=== PATIENT | female | born 2000 | race Caucasian/White ===

== ENCOUNTER 2020-03-01 10:15 | Outpatient (REF) | payer OTHER, SELFPAY ==
[2020-03-01 11:10] LABS: MANUAL DIFF FLAG NO
[2020-03-01 11:15] LABS: Basophils Percent Auto 0.5 % (0-2); Eosinophils Absolute Auto 0.1 X10*3/uL (0.0-0.4); Hemoglobin 12.5 g/dl (12.0-16.0); Imm Gran Abs Auto 0.03 X10*3/uL (0.00-0.03); Imm Gran Pct Auto 0.5 % (0.0-0.4); Lymphocytes Absolute Auto 2.3 X10*3/uL (1.2-4.9); Mean Corpuscular HGB Conc 32.9 g/dl (31.0-35.0); Mean Corpuscular Hemoglobin 28.9 pg (27.0-33.0); Mean Platelet Volume 9.9 fL (9.4-12.3); Monocytes Absolute Auto 0.5 X10*3/uL (0.1-1.2); Neutrophils Absolute Auto 3.3 X10*3/uL (2.0-8.3); Platelet Count 325 X10*3/uL (160-400); Red Blood Count 4.32 X10*6/uL (4.20-5.50); Red Cell Distribution Width 11.6 % (11.0-16.0); White Blood Count 6.1 X10*3/uL (4.8-10.8)
[2020-03-01 12:00] LABS: Anion Gap 14 (12-20); Blood Urea Nitrogen 7 mg/dL (9-16); Calcium 9.2 mg/dL (8.4-10.2); Carbon Dioxide 25 mmol/L (22-29); Chloride 103 mmol/L (96-108); Estimated Glomerular Filt Rate > 60; Glucose Random 91 mg/dL (60-115); Potassium 4.5 mmol/l (3.3-5.1); Sodium 137 mmol/L (135-145)
[2020-03-01 12:25] LABS: TSH reflex Free T4 1.16 mIU/mL (0.32-4.0)
[2020-03-02 19:01] LABS: LDL Cholesterol Direct 150 mg/dL (<100)
== END 2020-03-01 10:16 | disposition home or self-care (01) ==
LOC: HO.HMGCLDS 10:15
PROVIDERS: PCP Internal Medicine; Visit Provider Internal Medicine
DX: Z30.41 Encounter for surveillance of contraceptive pills (principal); E66.9 Obesity, unspecified; L70.8 Other acne
CPT/HCPCS: 36415; 80048; 83721; 84443; 85025

== ENCOUNTER 2020-06-08 10:41 | Outpatient (REF) | payer OTHER, SELFPAY ==
[2020-06-09 10:17] LABS: BV Int Neg Control Negative (Negative); BV Int Pos Control Positive (Positive)
[2020-06-09 20:51] LABS: C. trachomatis RNA TMA NOT DETECTED (NOT DETECTED); N. gonorrhoeae RNA TMA NOT DETECTED (NOT DETECTED)
== END 2020-06-08 10:42 | disposition home or self-care (01) ==
LOC: HO.LAB 10:41
PROVIDERS: PCP Internal Medicine; Visit Provider Advanced Practice Midwife
DX: R30.0 Dysuria (principal); R10.2 Pelvic and perineal pain; Z11.3 Encounter for screening for infections with a predominantly sexual mode of transmission
CPT/HCPCS: 36415; 81003; 87480; 87491; 87510; 87591; 87660; 99212

== ENCOUNTER → 2020-06-28 14:24 | Outpatient (BNVA) | payer OTHER, SELFPAY | PROVIDERS: PCP Internal Medicine; Visit Provider Advanced Practice Midwife ==

== ENCOUNTER 2021-02-16 09:19 | Outpatient (REF) | payer OTHER, SELFPAY ==
[2021-02-16 14:34] LABS: CT PCR NOT DETECTED (Not Detect.); NG PCR NOT DETECTED (Not Detect.)
[2021-02-17 11:09] LABS: BV Int Neg Control Negative (Negative); BV Int Pos Control Positive (Positive)
== END 2021-02-16 09:20 | disposition home or self-care (01) ==
LOC: HO.LAB 09:19
PROVIDERS: Obstetrics & Gynecology; Visit Provider Advanced Practice Midwife
DX: Z01.411 Encounter for gynecological examination (general) (routine) with abnormal findings (principal); Z11.3 Encounter for screening for infections with a predominantly sexual mode of transmission; R10.2 Pelvic and perineal pain
CPT/HCPCS: 87480; 87491; 87510; 87591; 87660; 88142

== ENCOUNTER 2021-03-09 11:52 | Outpatient (REF) | payer OTHER, SELFPAY ==
--- NOTE | ~2021-03-09 | US_ITS ---
EXAMINATION: US PELVIS CLINICAL INFORMATION: Pelvic pain COMPARISON: None TECHNIQUE: Ultrasound of the pelvis is performed using both transabdominal and transvaginal transducers along with Doppler. Transvaginal imaging is performed due to inadequate visualization transabdominally. FINDINGS: The uterus is anteverted and measures 7.1 x 2.2 x 3.4 cm in dimension. No focal uterine lesion is seen. Endometrial thickness is normal measuring 0.3 cm. The cervix is normal. The ovaries are normal. The right ovary measures 2.5 x 0.9 x 1.4 cm. The left ovary measures 1.7 x 1 x 1.3 cm. There is no fluid in the pelvis. US/US pelvic and transvaginal IMPRESSION: Normal pelvic ultrasound.
== END 2021-03-09 11:53 | disposition home or self-care (01) ==
LOC: HO.US 11:52
PROVIDERS: Visit Provider Obstetrics & Gynecology
DX: R10.2 Pelvic and perineal pain (principal)
CPT/HCPCS: 76830; 76856

== ENCOUNTER 2021-03-16 09:50 | Outpatient (REF) | payer OTHER, SELFPAY ==
[2021-03-16 13:11] LABS: CT PCR NOT DETECTED (Not Detect.); NG PCR NOT DETECTED (Not Detect.)
[2021-03-17 11:36] LABS: BV Int Neg Control Negative (Negative); BV Int Pos Control Positive (Positive)
== END 2021-03-16 09:51 | disposition home or self-care (01) ==
LOC: HO.LAB 09:50
PROVIDERS: Visit Provider Obstetrics & Gynecology
DX: Z11.3 Encounter for screening for infections with a predominantly sexual mode of transmission (principal); R10.2 Pelvic and perineal pain; N76.0 Acute vaginitis
CPT/HCPCS: 87480; 87491; 87510; 87591; 87660; 99212

== ENCOUNTER 2021-04-12 16:56 | Outpatient (REF) | payer OTHER, SELFPAY ==
[2021-04-12 17:57] LABS: Influenza A PCR NEGATIVE (Negative); Influenza B PCR NEGATIVE (Negative); Resp Syncy Virus RNA Qual PCR NEGATIVE (Negative); SARS COV2 PCR INHOUSE POSITIVE (Negative)
== END 2021-04-12 16:57 | disposition home or self-care (01) ==
LOC: HO.LNP 16:56
PROVIDERS: Visit Provider Internal Medicine
DX: Z20.822 Contact with and (suspected) exposure to COVID-19 (principal); J02.9 Acute pharyngitis, unspecified; R68.89 Other general symptoms and signs
CPT/HCPCS: 0241U

== ENCOUNTER 2021-06-13 15:02 | Outpatient (REF) | payer OTHER, SELFPAY ==
[2021-06-13 17:01] LABS: Alanine Aminotransferase 25 U/L (0-31); Albumin Level 4.1 g/dL (3.5-5.0); Alkaline Phosphatase 84 U/L (39-117); Anion Gap 14 (12-20); Aspartate Amino Transferase 21 U/L (5-31); Bilirubin Total 0.2 mg/dL (0.0-1.0); Blood Urea Nitrogen 15 mg/dL (9-16); Calcium 9.4 mg/dL (8.4-10.2); Carbon Dioxide 24 mmol/L (22-29); Chloride 104 mmol/L (96-108); Estimated Glomerular Filt Rate > 60; Glucose Random 82 mg/dL (60-115); Potassium 4.3 mmol/L (3.3-5.1); Sodium 138 mmol/L (135-145); Total Protein 7.8 g/dL (6.5-8.0)
== END 2021-06-13 15:03 | disposition home or self-care (01) ==
LOC: HO.HMGCLDS 15:02
PROVIDERS: Visit Provider Internal Medicine
DX: L70.8 Other acne (principal)
CPT/HCPCS: 36415; 80053

== ENCOUNTER → 2021-07-06 13:31 | Outpatient (BNVA) | payer OTHER, SELFPAY | PROVIDERS: Visit Provider Physician Assistant | DX: S93.402A Sprain of unspecified ligament of left ankle, initial encounter (principal); X58.XXXA Exposure to other specified factors, initial encounter | CPT/HCPCS: 29515; 73610; 99203 ==

== ENCOUNTER → 2021-07-13 15:07 | Outpatient (BNVA) | payer OTHER, SELFPAY | PROVIDERS: Visit Provider Physician Assistant | DX: S93.402A Sprain of unspecified ligament of left ankle, initial encounter (principal); X58.XXXA Exposure to other specified factors, initial encounter | CPT/HCPCS: 99213 ==

== ENCOUNTER 2021-08-30 17:13 | Outpatient (REF) | payer OTHER, SELFPAY ==
[2021-08-30 18:04] LABS: Influenza A PCR NEGATIVE (Negative); Influenza B PCR NEGATIVE (Negative); Resp Syncy Virus RNA Qual PCR NEGATIVE (Negative); SARS COV2 PCR INHOUSE NEGATIVE (Negative)
== END 2021-08-30 17:14 | disposition home or self-care (01) ==
LOC: HO.LNP 17:13
PROVIDERS: Visit Provider Emergency Medicine
DX: Z20.822 Contact with and (suspected) exposure to COVID-19 (principal); R68.89 Other general symptoms and signs
CPT/HCPCS: 0241U

== ENCOUNTER 2021-12-21 12:34 | Outpatient (REF) | payer OTHER, SELFPAY ==
[2021-12-21 13:02] LABS: Binax Internal Control QC Valid; Binax Now Covid-19 Ag Negative (Negative)
== END 2021-12-21 12:35 | disposition home or self-care (01) ==
LOC: HO.HMGCLDS 12:34
PROVIDERS: PCP Internal Medicine
DX: Z20.822 Contact with and (suspected) exposure to COVID-19 (principal); R09.81 Nasal congestion
CPT/HCPCS: 87811; C9803

== ENCOUNTER 2022-03-21 15:45 | Outpatient (REF) | payer OTHER, SELFPAY ==
[2022-03-22 02:14] LABS: CT PCR NOT DETECTED (Not Detect.); NG PCR NOT DETECTED (Not Detect.)
== END 2022-03-21 15:46 | disposition home or self-care (01) ==
LOC: HO.LNP 15:45
PROVIDERS: Visit Provider Obstetrics & Gynecology
DX: Z11.3 Encounter for screening for infections with a predominantly sexual mode of transmission (principal)
CPT/HCPCS: 87491; 87591

== ENCOUNTER 2022-03-28 11:44 | Outpatient (REF) | payer OTHER, SELFPAY ==
[2022-03-28 13:36] LABS: Influenza A PCR NEGATIVE (Negative); Influenza B PCR NEGATIVE (Negative); Resp Syncy Virus RNA Qual PCR NEGATIVE (Negative); SARS COV2 PCR INHOUSE NEGATIVE (Negative)
== END 2022-03-28 11:45 | disposition home or self-care (01) ==
LOC: HO.LNP 11:44
PROVIDERS: Visit Provider Internal Medicine
DX: Z20.822 Contact with and (suspected) exposure to COVID-19 (principal); R43.9 Unspecified disturbances of smell and taste
CPT/HCPCS: 0241U

== ENCOUNTER 2022-08-02 08:41 | Outpatient (REF) | payer OTHER, SELFPAY ==
[2022-08-02 12:36] LABS: Alanine Aminotransferase 17 U/L (0-31); Alkaline Phosphatase 79 U/L (39-117); Anion Gap 18 (12-20); Aspartate Amino Transferase 22 U/L (5-31); Bilirubin Total 0.2 mg/dL (0.0-1.0); Blood Urea Nitrogen 10 mg/dL (9-16); Calcium 9.8 mg/dL (8.4-10.2); Carbon Dioxide 21 mmol/L (22-29); Chloride 107 mmol/L (96-108); Cholesterol 222 mg/dL; Estimated Glomerular Filt Rate > 60; Glucose Fasting 82 mg/dL (60-99); HDL Cholesterol 54 mg/dL; LDL Cholesterol Calculated 138 mg/dl; Potassium 4.9 mmol/L (3.3-5.1); Sodium 141 mmol/L (135-145); Total Protein 7.7 g/dL (6.5-8.0); Triglycerides 151 mg/dL
== END 2022-08-02 08:42 | disposition home or self-care (01) ==
LOC: HO.HMGCLDS 08:41
PROVIDERS: PCP Internal Medicine; Visit Provider Internal Medicine
DX: Z00.01 Encounter for general adult medical examination with abnormal findings (principal); L70.8 Other acne; Z91.09 Other allergy status, other than to drugs and biological substances
CPT/HCPCS: 36415; 80053; 80061

== ENCOUNTER 2022-10-31 12:46 | Outpatient (AMB) | payer OTHER, SELFPAY ==
--- NOTE | 2022-10-31 12:50 | MHC.OFFWIV ---
Intake Vital Signs 10/31/22 12:52 BP 112/68 Blood Pressure Location Rt brachial Position Sitting Pulse 64 Pulse Source Pulse Oximeter Temp 97.7 F Temp Source Oral Pulse Oximetry (%) 98 Intake Visit Reasons: EP ear pain (lobby) Intake Note: Patient here for left ear pain, pt believes it is a start of ear infection but states it also might be sinus infection. Patient Tobacco Use Status: Never used Tobacco Allergies No Known Allergies Allergy (Verified 10/31/22 12:52) Do you need a note to return to daycare/school/sports/work: No HPI EP ear pain (lobby) HPI Details 21-year-old female presents to the office for a sick visit. Patient is reporting pain in the left ear. Symptoms are more in the external ear. Episodes of sharp pain. [facility] Medical History Acne cosmetica Encounter for control pills maintenance Head congestion Surgical History No pertinent past surgical history Family History Father Unknown family medical history Mother Medical history non-contributory Unknown family medical history Maternal Grandfather No problems noted. Maternal Grandmother Unknown family medical history Paternal Grandfather Medical history non-contributory Paternal Grandmother Medical history non-contributory Sister No problems noted. Social History Housing: House Alcohol intake: never Patient Tobacco Use Status: Never used Tobacco e-Cigarette/Vaping Use: Never Used service: No Current occupational status: employed Cognitive needs: No Hearing needs: No Vision needs: Yes Female Reproductive History Menstrual Age of Menarche: 10 Physical Exam Vital Signs: Last Vital Signs Temp 97.7 F 10/31/22 12:52 Pulse 64 10/31/22 12:52 BP 112/68 10/31/22 12:52 Pulse Ox 98 10/31/22 12:52 Const General: cooperative and healthy appearing Nutritional Appearance: well nourished Limitations: no limitations HEENT Other: Left ear: tenderness in the tragus part of external ear. No visible bruising. Head: Yes normal to inspection Eyes General: appearance normal, both eyes and all related structures Neck Neck: Yes normal visual inspection Assessment & Plan Assessment & Plan (1) Otalgia: Code(s): H92.09 - Otalgia, unspecified ear Plan: No evidence of infection. No antibiotics called in. Medications: New meloxicam 15 mg PO DAILY 14 tabs 0RF Coding Level of Care Code Est Pt Level 3 (46522) Diagnoses Otalgia H92.09
[2022-10-31 12:52] VITALS: BP 112/68; PULSE 64; TEMP 36.5; O2SAT 98
== END 2022-10-31 13:12 | disposition home or self-care (01) ==
PROVIDERS: PCP Internal Medicine; Visit Provider Internal Medicine
DX: H92.09 Otalgia, unspecified ear (principal)
CPT/HCPCS: 99213

== ENCOUNTER 2023-02-22 11:10 | Outpatient (AMB) | payer OTHER, SELFPAY ==
[2023-02-22 11:16] VITALS: BP 124/88; PULSE 93; O2SAT 96; BMI 31.0
--- NOTE | 2023-02-22 11:16 | AM.OFFWIN_ITS ---
Intake Vital Signs 02/22/23 11:16 Height 5 ft 4 in Weight 180 lb 6 oz BMI 31.0 BP 124/88 Blood Pressure Location Rt brachial Position Sitting Pulse 93 Pulse Source Pulse Oximeter Pulse Oximetry (%) 96 Oxygen Delivery Method Room Air Intake Visit Reasons: EST/abdominal pain [phone] Patient Tobacco Use Status: Never used Tobacco Allergies No Known Allergies Allergy (Verified 02/22/23 11:16) Medication List - Last Reconciled 02/22/23 by Susana May MD fluticasone propionate 50 mcg/actuation (Flonase Allergy Relief) 1 spray intranasal DAILY 3 months norgestimate-ethinyl estradiol 0.25-35 mg-mcg 1 tab PO DAILY spironolactone 100 mg PO BID 90 days triamcinolone acetonide 0.1% 1 appl topical DAILY 30 days Do you need a note to return to daycare/school/sports/work: No HPI EST/abdominal pain [phone] HPI Details Patient is 22-year-old female Came in today to be evaluated for lower abdominal discomfort, it started yesterday but got worse this morning Patient is also feeling nauseous There is no fever chills However she is having dysuria. On examination patient is tender suprapubically Urine shows signs of infection We have sent culture I am treating her with Levaquin 500 mg once a day for 3 days And Zofran sent for nausea as needed for 2 days. [facility]MERLY [facility], [facility] Medical History Head congestion Encounter for control pills maintenance Acne cosmetica Surgical History No pertinent past surgical history Family History Father Unknown family medical history Mother Medical history non-contributory Unknown family medical history Maternal Grandfather No problems noted. Maternal Grandmother Unknown family medical history Paternal Grandfather Medical history non-contributory Paternal Grandmother Medical history non-contributory Sister No problems noted. Social History Housing: House Alcohol intake: never Patient Tobacco Use Status: Never used Tobacco e-Cigarette/Vaping Use: Never Used service: No Current occupational status: employed Cognitive needs: No Hearing needs: No Vision needs: Yes Female Reproductive History Menstrual Age of Menarche: 10 Physical Exam Vital Signs: Last Vital Signs Pulse 93 02/22/23 11:16 BP 124/88 02/22/23 11:16 Pulse Ox 96 02/22/23 11:16 Oxygen Delivery Method Room Air 02/22/23 11:16 BMI result Body Mass Index 31.0 Const General: no acute distress Orientation/consciousness: patient oriented x3 Eyes General: appearance normal, both eyes and all related structures Resp Effort & Inspection: normal respiratory effort and able to speak in complete sentences Auscultation: clear to auscultation bilaterally Cardio Other: S1 S2 GI Other: Suprapubic discomfort with pressure bowel sound positive Neuro General: patient oriented x3 Psych Mental Status: mental status grossly normal Results AMB Urinalysis, Automated UA Leukoctes 15 Arnoldo/uL Last Edit by Jose Bueno CMA on 02/22/23 11:40 UA Nitrite Negative Last Edit by Jose Bueno CMA on 02/22/23 11:40 UA Urobilinogen 0.2 mg/dL Last Edit by Jose Bueno CMA on 02/22/23 11 :40 UA Protein 0 mg/dL Last Edit by Jose Bueno CMA on 02/22/23 11:40 UA pH 6.0 Last Edit by Jose Bueno CMA on 02/22/23 11:40 UA Blood 80 Adin/uL Last Edit by Jose Bueno CMA on 02/22/23 11:40 UA Specific [place] 1.020 Last Edit by Jose Bueno CMA on 02/22/23 11:40 UA Ketone Negative Last Edit by Jose Bueno CMA on 02/22/23 11:40 UA Bilirubin 0 mg/dL Last Edit by Jose Bueno CMA on 02/22/23 11:40 UA Glucose 0 mg/dL Last Edit by Jose Bueno CMA on 02/22/23 11:40 Results Reviewed Results Reviewed: Laboratory Last Values Urine pH (Auto) 6.0 02/22/23 11:39 Specific [place] (Auto) 1.020 02/22/23 11:39 Urine Protein (Auto) 0 mg/dL 02/22/23 11:39 Glucose (UA)(Auto) 0 mg/dL 02/22/23 11:39 Urine Ketones (Auto) Negative 02/22/23 11:39 Urine Blood (Auto) 80 Adin/uL 02/22/23 11:39 Urine Nitrite (Auto) Negative 02/22/23 11:39 Urine Bilirubin (Auto) 0 mg/dL 02/22/23 11:39 Urine Urobilinogen (Auto) 0.2 mg/dL 02/22/23 11:39 Leukocyte Esterase (Auto) 15 Arnoldo/uL 02/22/23 11:39 Assessment & Plan Assessment & Plan (1) Acute cystitis: Code(s): N30.00 - Acute cystitis without hematuria Qualifiers: Hematuria presence: with hematuria Qualified Code(s): N30.01 - Acute cystitis with hematuria Plan Patient is 22-year-old female Came in today to be evaluated for lower abdominal discomfort, it started yesterday but got worse this morning Patient is also feeling nauseous There is no fever chills However she is having dysuria. On examination patient is tender suprapubically Urine shows signs of infection We have sent culture I am treating her with Levaquin 500 mg once a day for 3 days And Zofran sent for nausea as needed for 2 days. Orders: Orders Urine Culture Today N30.00 - Acute cystitis without hematuria AMB Urinalysis Automated Today Z13.9 - Encounter for screening, unspecified Medications: New levofloxacin 500 mg PO DAILY 3 tabs 0RF 3 days ondansetron HCl 4 mg PO Q8H PRN 6 tabs 0RF nausea and vomiting 2 days R11.0 - Nausea Coding Level of Care Code Est Pt Level 3 (87640) Diagnoses Acute cystitis with hematuria N30.01 Hematuria presence: with hematuria
== END 2023-02-22 12:22 | disposition home or self-care (01) ==
PROVIDERS: PCP Internal Medicine; Visit Provider Internal Medicine
DX: N30.01 Acute cystitis with hematuria (principal); R30.0 Dysuria
CPT/HCPCS: 81003; 99213

== ENCOUNTER 2023-02-22 11:39 | Outpatient (REF) | payer OTHER, SELFPAY | END 2023-02-22 11:40 | disposition home or self-care (01) | LOC: HO.LAB 11:39 | PROVIDERS: Visit Provider Internal Medicine | DX: N30.00 Acute cystitis without hematuria (principal) | CPT/HCPCS: 87086; 87088; 87186 ==

== ENCOUNTER 2023-03-26 15:05 | Outpatient (AMB) | payer OTHER, SELFPAY ==
--- NOTE | 2023-03-26 15:10 | MHC.OFFVIS ---
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 Complaining of left pelvic pain with no associated GI or symptoms, no vaginal discharge. Last Pap was negative in 02/26 [facility]LY [facility] Medical History Head congestion Encounter for control pills maintenance Acne cosmetica Surgical History History of eye surgery Family History Father Unknown family medical history Mother Medical history non-contributory Unknown family medical history Maternal Grandfather No problems noted. Maternal Grandmother Unknown family medical history Paternal Grandfather Medical history non-contributory Paternal Grandmother Medical history non-contributory Sister No problems noted. 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 Sexual orientation: Straight/Heterosexual Gender identity: Female Cognitive needs: No Hearing needs: No Vision needs: Yes Female Reproductive History Menstrual Age of Menarche: 10 Date of last menstrual period: 03/15/23 control method: pills Total pregnancies: 0 Date of last pap smear: 02/17/21 Review of Systems Const All systems reviewed & are unremarkable except as noted in HPI and below Card Reports as per HPI Resp Reports as per HPI GI Reports as per HPI and Reports no additional complaints Reports as per HPI Physical Exam Vital Signs: Last Vital Signs BP 120/70 03/26/23 15:11 BMI result Body Mass Index 31.9 Const General: cooperative, healthy appearing and comfortable Chest Chest palpation & inspection: normal inspection of the chest and normal palpation of entire chest wall Breast/axilla inspection: normal inspection of the breasts and normal inspection of the axillae Breast/axilla palpation: normal palpation of the breasts, normal palpation of the axillae and no axillary lymphadenopathy Resp Effort & Inspection: normal respiratory effort Auscultation: clear to auscultation bilaterally Percussion: percussion normal Cardio Palpation: normal PMI Rate: regular rate Rhythm: regular rhythm Heart sounds: no murmurs and no rubs Peripheral pulses: Peripheral pulses 2+ throughout GI Inspection: Yes normal to inspection Palpation (GI): Soft to palpation, nontender, no guarding, not rigid and No hepatosplenomegaly present Percussion: Yes normal to percussion Auscultation: normal bowel sounds Rectal Exam - Female: deferred General: Yes bladder normal to palpation External Female Exam: No lesion Speculum Exam - Vagina: normal appearance of the vagina, normal palpation, normal vaginal discharge and not erythematous Speculum Exam - Cervix: normal appearance of the cervix and normal palpation Bimanual exam- vagina & uterus: normal bimanual exam, normal palpation, uterine size normal, bladder normal to palpation, consistency normal and normal palpation Bimanual Exam- Adnexa, other: normal adnexae, no masses and no tenderness Results AMB Urinalysis, Automated UA Leukoctes 0 Arnoldo/uL Last Edit by MACO Gleason on 03/26/23 15:44 UA Nitrite Negative Last Edit by MACO Gleason on 03/26/23 15:44 UA Urobilinogen 0 mg/dL Last Edit by MACO Gleason on 03/26/23 15:44 UA Protein 0 mg/dL Last Edit by MACO Gleason on 03/26/23 15:44 UA pH 6.5 Last Edit by MACO Gleason on 03/26/23 15:44 UA Blood 0 Adin/uL Last Edit by MACO Gleason on 03/26/23 15:44 UA Specific [place] 1.015 Last Edit by MACO Gleason on 03/26/23 15:44 UA Ketone Negative Last Edit by MACO Gleason on 03/26/23 15:44 UA Bilirubin 0 mg/dL Last Edit by MACO Gleason on 03/26/23 15:44 UA Glucose 0 mg/dL Last Edit by MACO Gleason on 03/26/23 15:44 AMB Test Urine AMB Test Urine Negative Last Edit by MACO Gleason on 03/26/23 15:44 Assessment & Plan Assessment & Plan (1) Well woman exam: Code(s): Z01.419 - Encounter for gynecological examination (general) (routine) without abnormal findings Plan: No Pap smear indicated this year Counseled the patient about the recommended dietary allowance of 1000 mg of Calcium & 600 IU of vitamin D. The patient was instructed to perform monthly self-breast exams and to schedule an annual exam in a year; All questions answered and the patient verbalized understanding. Instructed the patient to schedule annual exam in a year (2) Female pelvic pain: Code(s): R10.2 - Pelvic and perineal pain Plan: Urine dip and test done in the office were both negative. GC and chlamydia taken and pelvic ultrasound ordered. Discussed with the patient the differential diagnosis of pelvic pain including but not limited to adnexal, uterine masses, pelvic infections (PID), GI the (Irritable bowel syndrome, diverticulitis, others), musculoskeletal, myofascial pain abdominal wall , adhesions, endometriosis, psychological and others causes. Will check results and treat accordingly. All questions answered, the patient verbalized understanding. Instructed the patient to schedule follow-up appointment in 2 weeks Orders: Orders CT NG by PCR Today Z20.2 - Contact with and (suspected) exposure to infections with a predominantly sexual mode of transmission AMB Urinalysis Automated Today R10.2 - Pelvic and perineal pain US pelvic and transvaginal Today R10.2 - Pelvic and perineal pain AMB HCG Urine Test Today Z32.02 - Encounter for test, result negative Coding Level of Care Code Est Pt Prev Care 18-39y(91429) Diagnoses Well woman exam Z01.419 Female pelvic pain R10.2
[2023-03-26 15:11] VITALS: BP 120/70; BMI 31.9
== END 2023-03-26 15:38 | disposition home or self-care (01) ==
LOC: HO.HWS 15:05
PROVIDERS: PCP Internal Medicine; Visit Provider Obstetrics & Gynecology
DX: Z01.419 Encounter for gynecological examination (general) (routine) without abnormal findings (principal); R10.2 Pelvic and perineal pain; Z32.02 Encounter for pregnancy test, result negative
CPT/HCPCS: 99395

== ENCOUNTER 2023-03-26 15:05 | Outpatient (REF) | payer OTHER, SELFPAY ==
[2023-03-26 18:42] LABS: CT PCR NOT DETECTED (Not Detect.); NG PCR NOT DETECTED (Not Detect.)
== END 2023-03-26 15:06 | disposition home or self-care (01) ==
LOC: HO.LNP 15:05
PROVIDERS: PCP Internal Medicine; Visit Provider Obstetrics & Gynecology
DX: Z01.419 Encounter for gynecological examination (general) (routine) without abnormal findings (principal); Z20.2 Contact with and (suspected) exposure to infections with a predominantly sexual mode of transmission
CPT/HCPCS: 0353U; 81003; 81025; 99395

== ENCOUNTER 2023-04-16 15:16 | Outpatient (AMB) | payer OTHER, SELFPAY ==
[2023-04-16 15:19] VITALS: BP 134/78; PULSE 92; O2SAT 98; BMI 32.6
--- NOTE | 2023-04-16 15:19 | A.OFFPC_ITS ---
Vital Signs 04/16/23 15:19 Height 5 ft 4 in Weight 190 lb 2 oz BMI 32.6 BP 134/78 Blood Pressure Location Rt brachial Position Sitting Pulse 92 Pulse Source Pulse Oximeter Pulse Oximetry (%) 98 Oxygen Delivery Method Room Air Intake Visit Reasons: Annual PE Allergies No Known Allergies Allergy (Verified 04/16/23 15:31) Medication List - Last Reconciled 04/16/23 by Susana May MD fluticasone propionate 50 mcg/actuation (Flonase Allergy Relief) 1 spray intranasal DAILY 3 months norgestimate-ethinyl estradiol 0.25-35 mg-mcg 1 tab PO DAILY spironolactone 100 mg PO BID 90 days triamcinolone acetonide 0.1% 1 appl topical DAILY 30 days Tobacco use date assessed: 04/16/23 Dental Screening Dental Screen Date: 04/16/23 Did you have a dental visit in the last 12 months?: Yes Did you have a dental problem in the last 6 months where you did not have access to dental care?: No Was dental information given to patient?: Patient has dentist HPI Annual PE HPI Details 22-year-old female this is a physical ex am appointment Patient is on spironolactone due to acne She is tolerating medication no side effect Patient is established with OBGYN. BMI is elevated patient is trying to lose weight. Follow-up 6 months Labs are needed order placed [facility] Medical History Head congestion Encounter for control pills maintenance Acne cosmetica Surgical History History of eye surgery Family History Father Unknown family medical history Mother Medical history non-contributory Unknown family medical history Maternal Grandfather No problems noted. Maternal Grandmother Unknown family medical history Paternal Grandfather Medical history non-contributory Paternal Grandmother Medical history non-contributory Sister No problems noted. 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 How often do you have a drink containing alcohol?: Never 3. How often do you have six or more drinks on one occasion?: Never Total Score: 0 Score Reviewed/Action Taken: Yes ALEAH-7 AMB Questionnaire ALEAH-7 Date ALEAH - 7 assessed: 04/17/22 Source: Developed by Drs. Hector Luna, Janet Baron, Jose Antonio Magaña and colleagues, with an educational kash from [employer]. Review of Systems Const Denies chills, Denies fever(s) and Denies headache(s) Eyes Denies blurry vision ENT Denies headache(s), Denies nasal discharge, Denies nasal obstruction, Denies odynophagia and Denies sinus pain Card Denies chest pain at rest and Denies chest pain with activity Resp Denies cough and Denies hemoptysis GI Denies diarrhea, Denies odynophagia, Denies vomiting and Denies hematemesis Reports as per HPI Musc Denies abnormal gait Skin/Breast Reports as per HPI Neuro Denies Neuro-related abnormal movements, Denies Abnormal speech present, Denies abnormal gait, Denies headache(s) and Denies Sensory deficit (Neuro) Psych Denies mood swings and Denies paranoia Endo Reports as per HPI Cam/Lymph Reports as per HPI Aller/Immun Reports as per HPI Physical exam (Primary Care) Vital Signs: Last Vital Signs Pulse 92 04/16/23 15:19 BP 134/78 04/16/23 15:19 Pulse Ox 98 04/16/23 15:19 Oxygen Delivery Method Room Air 04/16/23 15:19 BMI result Body Mass Index 32.6 Tobacco/Smoking Status: Tobacco use Status Tobacco use date assessed 04/16/23 04/16/23 15:32 Patient Tobacco Use Status Never used Tobacco 04/16/23 15:21 e-Cigarette/Vaping Use Never Used 04/16/23 15:21 Thrive Assessment: Date of Thrive Assessment Date Thrive assessed 04/17/22 04/16/23 15:21 Const General: cooperative, comfortable and no acute distress Orientation/consciousness: patient oriented x3 HENMT Head: Yes normocephalic and Yes atraumatic Eyes General: appearance normal, both eyes and all related structures Pupils: Equal, round and reactive pupils present EOM: EOMs intact bilaterally Neck Neck: Yes supple and No lymphadenopathy Thyroid: Thyroid normal Lymphatic: no lymphadenopathy noted Resp Effort & Inspection: normal respiratory effort and able to speak in complete sentences Auscultation: clear to auscultation bilaterally Cardio Heart sounds: S1 normal heart sound present and S2 normal heart sound present GI Palpation (GI): Soft to palpation and nontender Auscultation: normal bowel sounds General: Yes no CVA tenderness Back/Spine/Pelvis Back: no CVA tenderness Skin General skin exam: elasticity normal and turgor normal Neuro General: patient oriented x3 and gait normal Cranial nerves: Yes Equal, round and reactive pupils present Speech: No Abnormal speech present Sensory Exam: No Sensory deficit (Neuro) Coordination: tandem gait normal and Romberg test negative Extrem General: Yes normal exam except as noted and No edema Assessment and Plan Assessment & Plan (1) Encounter for general adult medical examination with abnormal findings: Code(s): Z00.01 - Encounter for general adult medical examination with abnormal findings (2) Environmental allergies: Code(s): Z91.09 - Other allergy status, other than to drugs and biological substances (3) Acne cosmetica: Code(s): L70.8 - Other acne (4) Obesity due to excess calories: Code(s): E66.09 - Other obesity due to excess calories Qualifiers: Obesity classification: adult class 1 (BMI 30 - 34.9) Serious obesity comorbidity presence: without serious comorbidity Body mass index: BMI 32.0- 32.9 Qualified Code(s): E66.09 - Other obesity due to excess calories; Z68.32 - Body mass index [BMI] 32.0-32.9, adult Plan 22-year-old female this is a physical exam appointment Patient is on spironolactone due to acne She is tolerating medication no side effect Patient is established with OBGYN. BMI is elevated patient is trying to lose weight. Follow-up 6 months Labs are needed order placed Orders: Orders Complete Blood Count Auto Diff Today E66.09 - Other obesity due to excess calories, L70.8 - Other acne, Z00.01 - Encounter for general adult medical examination with abnormal findings, Z91.09 - Other allergy status, other than to drugs and biological substances Comprehensive [place]. Panel Fast Today E66.09 - Other obesity due to excess calories, L70.8 - Other acne, Z00.01 - Encounter for general adult medical examination with abnormal findings, Z91.09 - Other allergy status, other than to drugs and biological substances Lipid Panel Today E66.09 - Other obesity due to excess calories, L70.8 - Other acne, Z00.01 - Encounter for general adult medical examination with abnormal findings, Z91.09 - Other allergy status, other than to drugs and biological substances TSH reflex Free T4 Today E66.09 - Other obesity due to excess calories, L70.8 - Other acne, Z00.01 - Encounter for general adult medical examination with abnormal findings, Z91.09 - Other allergy status, other than to drugs and biological substances Complete Blood Count Auto Diff 5 Months E66.09 - Other obesity due to excess calories, L70.8 - Other acne, Z91.09 - Other allergy status, other than to drugs and biological substances Comprehensive Met. Panel 5 Months E66.09 - Other obesity due to excess calories, L70.8 - Other acne, Z91.09 - Other allergy status, other than to drugs and biological substances Coding Level of Care Code Est Pt Prev Care 18-39y(76085) Diagnoses Encounter for general adult medical examination with abnormal findings Z00.01 Environmental allergies Z91.09 Acne cosmetica L70.8 Class 1 obesity due to excess calories without serious comorbidity with body mass index (BMI) of 32.0 to 32.9 in adult E66.09; Z68.32 Obesity classification: adult class 1 (BMI 30 - 34.9) Serious obesity comorbidity presence: without serious comorbidity Body mass index: BMI 32.0-32.9
== END 2023-04-16 15:52 | disposition home or self-care (01) ==
PROVIDERS: Visit Provider Internal Medicine
DX: Z00.00 Encounter for general adult medical examination without abnormal findings (principal); Z91.09 Other allergy status, other than to drugs and biological substances; E66.09 Other obesity due to excess calories; Z68.32 Body mass index [BMI] 32.0-32.9, adult; L70.8 Other acne
CPT/HCPCS: 99395

== ENCOUNTER 2023-04-19 15:57 | Outpatient (REF) | payer OTHER, SELFPAY ==
--- NOTE | ~2023-04-19 | US_ITS ---
EXAMINATION: US PELVIS CLINICAL INFORMATION: Pelvic and perineal pain; the last menstrual period was on 04/15/2023. COMPARISON: Pelvic ultrasound dated 03/09/2021. TECHNIQUE: Ultrasound of the pelvis is performed using both transabdominal and transvaginal transducers along with Doppler. Transvaginal imaging is performed due to inadequate visualization transabdominally. FINDINGS: Uterus: The uterus is anteverted and measures 7.4 x 2.6 x 3.6 cm. The uterus is anteverted and anteflexed. The double wall endometrial thickness is 1 mm. The uterus is smooth in contour and has normal myometrial echogenicity. No visible fibroid. Adnexa: Both ovaries are visualized. There is normal color flow to the adnexa. There is no ovarian torsion. There is no pelvic ascites or fluid collection. Right ovary measures 2.3 x 1.9 x 1.8 cm. The right ovary contains a 1.4 x 1.3 x 1.5 cm mildly complex cyst, with fine septations. Left ovary measures 2.4 x 1.7 x 1.4 cm. The left ovary contains a 1.4 x 1.0 x 1.5 cm mildly complex cyst, with fine septation. US/US pelvic and transvaginal IMPRESSION: There are newly seen mildly complex bilateral ovarian cysts, with fine septations and no mural nodularity or associated color Doppler flow. As a precaution, a repeat pelvic ultrasound examination is recommended in 6-12 weeks to ensure regression/resolution.
== END 2023-04-19 15:58 | disposition home or self-care (01) ==
LOC: HO.US 15:57
PROVIDERS: PCP Internal Medicine; Visit Provider Obstetrics & Gynecology
DX: R10.2 Pelvic and perineal pain (principal)
CPT/HCPCS: 76830; 76856

== ENCOUNTER 2023-05-20 15:12 | Outpatient (AMB) | payer OTHER, SELFPAY ==
--- NOTE | 2023-05-20 15:14 | A.OFFVIS_ITS ---
Intake Vital Signs 05/20/23 15:17 Height 5 ft 4 in Weight 190 lb BMI 32.6 BP 120/82 Intake Visit Reasons: Ultrasound follow up Accompanied by: Mother Allergies No Known Allergies Allergy (Verified 05/20/23 15:14) Is last menstrual period known: Yes Last menstrual period: 05/10/23 HPI HPI Comments History of Present Illness Details Presenting for pelvic pain follow-up. The following workup was done: GC/CT were negative Urine dip and test done in the office were both negative Pelvic ultrasound showed the following: Uterus: The uterus is anteverted and measures 7.4 x 2.6 x 3.6 cm. The uterus is anteverted and anteflexed. The double wall endometrial thickness is 1 mm. The uterus is smooth in contour and has normal myometrial echogenicity. No visible fibroid. Adnexa: Both ovaries are visualized. There is normal color flow to the adnexa. There is no ovarian torsion. There is no pelvic ascites or fluid collection. Right ovary measures 2.3 x 1.9 x 1.8 cm. The right ovary contains a 1.4 x 1.3 x 1.5 cm mildly complex cyst, with fine septations. Left ovary measures 2.4 x 1.7 x 1.4 cm. The left ovary contains a 1.4 x 1.0 x 1.5 cm mildly complex cyst, with f ine septation. [facility] Medical History Head congestion Encounter for control pills maintenance Acne cosmetica Surgical History History of eye surgery Family History Father Unknown family medical history Mother Medical history non-contributory Unknown family medical history Maternal Grandfather No problems noted. Maternal Grandmother Unknown family medical history Paternal Grandfather Medical history non-contributory Paternal Grandmother Medical history non-contributory Sister No problems noted. 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 Sexual orientation: Straight/Heterosexual Gender identity: Female Cognitive needs: No Hearing needs: No Vision needs: Yes Female Reproductive History Menstrual Age of Menarche: 10 Date of last menstrual period: 05/10/23 Review of Systems Const All systems reviewed & are unremarkable except as noted in HPI and below Reports as per HPI and Reports no additional complaints GI Reports no additional complaints Reports no additional complaints Physical Exam Vital Signs: Last Vital Signs BP 120/82 05/20/23 15:17 BMI result Body Mass Index 32.6 Assessment & Plan Assessment & Plan (1) Complex cyst of both ovaries: Code(s): N83.291 - Other ovarian cyst, right side; N83.292 - Other ovarian cyst, left side Plan: Discussed with the patient the bilateral complex ovarian cysts by ultrasound. Discussed with the patient the Ultrasound findings, the main limitation of transvaginal ultrasonography alone as a diagnostic tool to distinguish benign from malignant masses relates to its lack of specificity and low positive predictive value for cancer. The differential diagnosis discussed with the patient includes the following but not limited to: benign and malignant gynecological and non-gynecological causes. L Discussed with the patient options of treatment including laparoscopy ovarian cystectomies vs. expectant management with repeat US in repeating pelvic US in 6-12 weeks from previous US. If the ovarian complex cysts are persistent larger and / or more complex looking, will refer to gynecologic Oncology. All pros, cons, risks and benefits of each approach were discussed with the patient including but not limited to a delay in the diagnosis and treatment of ovarian cancer affecting the prognosis; The patient decided to go ahead with expectant management. Instructions given the patient to schedule a 3 months follow-up ultrasound appointment. All questions were answered & the patient verbalized understanding and agreed with the plan. Orders: Orders US pelvic and transvaginal 2 Months N83.291 - Other ovarian cyst, right side, N83.292 - Other ovarian cyst, left side Coding Level of Care Code Est Pt Level 3 (19659) Diagnoses Complex cyst of both ovaries N83.291; N83.292
[2023-05-20 15:17] VITALS: BP 120/82; BMI 32.6
== END 2023-05-20 15:34 | disposition home or self-care (01) ==
LOC: HO.HWS 15:12
PROVIDERS: PCP Internal Medicine; Visit Provider Obstetrics & Gynecology
DX: N83.291 Other ovarian cyst, right side (principal); N83.292 Other ovarian cyst, left side
CPT/HCPCS: 99213

== ENCOUNTER → 2023-05-20 15:12 | Outpatient (BNVA) | payer OTHER, SELFPAY | PROVIDERS: PCP Internal Medicine; Visit Provider Obstetrics & Gynecology | DX: N83.291 Other ovarian cyst, right side (principal); N83.292 Other ovarian cyst, left side | CPT/HCPCS: 99212 ==

== ENCOUNTER 2023-05-28 15:51 | Outpatient (AMB) | payer OTHER, SELFPAY ==
--- NOTE | 2023-05-28 15:51 | MHC.OFFVIS ---
Intake Intake Visit Reasons: Questions regarding hormones Visual Coordinator Required: No Allergies No Known Allergies Allergy (Verified 05/28/23 15:52) Post menopausal: No HPI HPI Comments History of Present Illness Details The patient is scheduled tele health visit to discuss her pelvic pain that is cyclic premenstrual gets worse during and improves afterwards. The patient has been on cyclic control pills. Urine dip and test with GC and chlamydia done last visit were negative pelvic ultrasound showed bilateral 1.5 cm complex ovarian cyst for which a repeat ultrasound is scheduled. The patient gives a history of abnormal bleeding on cyclic control pills with a history of hirsutism and acne few years ago that resolved completely since then [facility] Medical History Head congestion Encounter for control pills maintenance Acne cosmetica Surgical History History of eye surgery Family History Father Unknown family medical history Mother Medical history non-contributory Unknown family medical history Maternal Grandfather No problems noted. Maternal Grandmother Unknown family medical history Paternal Grandfather Medical history non-contributory Paternal Grandmother Medical history non-contributory Sister No problems noted. 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 Sexual orientation: Straight/Heterosexual Gender identity: Female Cognitive needs: No Hearing needs: No Vision needs: Yes Female Reproductive History Menstrual Age of Menarche: 10 control method: none Review of Systems Const All systems reviewed & are unremarkable except as noted in HPI and below Reports as per HPI and Reports no additional complaints GI Reports no additional complaints Reports no additional complaints Assessment & Plan Assessment & Plan (1) Pelvic pain: Comment: Cyclic possible endometriosis Code(s): R10.2 - Pelvic and perineal pain Plan: Will switch to continuous control pills as it diagnostic/therapeutic trial for endometriosis as a cause of pelvic pain . Instructions given the patient to start Seasonique pack instead of starting the all cyclic control pills. All questions answered, the patient verbalized understanding I spent a total of 20 minutes reviewing the chart, talking to the patient via video and documenting in the medical record. Orders: Orders Prolactin Today N93.9 - Abnormal uterine and vaginal bleeding, unspecified Testosterone, Free/Total Today N93.9 - Abnormal uterine and vaginal bleeding, unspecified Thyroid Stimulating Hormone Today N93.9 - Abnormal uterine and vaginal bleeding, unspecified 17 Hydroxyprogesterone Today N93.9 - Abnormal uterine and vaginal bleeding, unspecified Medications: New L norgest/e.estradiol-e.estrad 0.15 mg-30 mcg (84)/10 mcg (7) 1 tab PO DAILY 84 ea 0RF 84 days Discontinued norgestimate-ethinyl estradiol 0.25-35 mg-mcg Discontinued Reason: Doctor's Order 1 tab PO DAILY 28 tabs 11RF Telehealth Telehealth Location of provider rendering services: practice address Location of patient: address on file Patient Identification confirmed using: Name, : Yes Telehealth method: video Patient verbally consented to treatment: Yes Patient verbally consented to billing insurance company: Yes Patient informed of any privacy concerns related to visit: Yes Coding Level of Care Code Tele Est Pt Level 1 (19979) Diagnoses Pelvic pain R10.2
== END 2023-05-28 16:21 | disposition home or self-care (01) ==
LOC: HO.HWS 15:51
PROVIDERS: PCP Internal Medicine; Visit Provider Obstetrics & Gynecology
DX: R10.2 Pelvic and perineal pain (principal)
CPT/HCPCS: 99211

== ENCOUNTER → 2023-05-28 15:51 | Outpatient (BNVA) | payer OTHER, SELFPAY | PROVIDERS: PCP Internal Medicine; Visit Provider Obstetrics & Gynecology ==

== ENCOUNTER 2023-06-01 10:12 | Outpatient (REF) | payer OTHER, SELFPAY ==
[2023-06-01 11:00] LABS: MANUAL DIFF FLAG NO
[2023-06-01 11:16] LABS: Basophils Percent Auto 0.6 % (0-2); Eosinophils Absolute Auto 0.2 X10*3/uL (0.0-0.4); Eosinophils Percent Auto 2.3 % (0-4); Hematocrit 39.1 % (37.0-47.0); Hemoglobin 13.3 g/dl (12.0-16.0); Imm Gran Abs Auto 0.04 X10*3/uL (0.00-0.03); Imm Gran Pct Auto 0.6 % (0.0-0.4); Lymphocytes Absolute Auto 2.5 X10*3/uL (1.2-4.9); Lymphocytes Percent Auto 36.9 % (20-40); Mean Corpuscular Hemoglobin 29.3 pg (27.0-33.0); Mean Corpuscular Volume 86.1 fL (80.0-98.0); Mean Platelet Volume 9.7 fL (9.4-12.3); Monocytes Absolute Auto 0.4 X10*3/uL (0.1-1.2); Monocytes Percent Auto 6.1 % (2-11); Neutrophils Absolute Auto 3.7 x10*3/uL (2.0-8.3); Neutrophils Percent Auto 53.5 % (45-73); Platelet Count 360 X10*3/uL (160-400); Red Blood Count 4.54 X10*6/uL (4.20-5.50); Red Cell Distribution Width 12.3 % (11.0-16.0); White Blood Count 6.8 X10*3/uL (4.8-10.8)
[2023-06-01 11:59] LABS: Alanine Aminotransferase 10 U/L (0-31); Albumin Level 4.1 g/dL (3.5-5.0); Alkaline Phosphatase 79 U/L (39-117); Anion Gap 18 (12-20); Aspartate Amino Transferase 14 U/L (5-31); Bilirubin Total 0.3 mg/dL (0.0-1.0); Blood Urea Nitrogen 10 mg/dL (9-16); Calcium 9.7 mg/dL (8.4-10.2); Carbon Dioxide 20 mmol/L (22-29); Chloride 106 mmol/L (96-108); Cholesterol 231 mg/dL (<200); Estimated Glomerular Filt Rate > 60; Glucose Fasting 74 mg/dL (60-99); Glucose Random 73 mg/dL (60-115); HDL Cholesterol 54 mg/dL (>40); LDL Cholesterol Calculated 120 mg/dL (<100); Potassium 3.9 mmol/L (3.3-5.1); Sodium 140 mmol/L (135-145); Triglycerides 285 mg/dL (<150)
[2023-06-01 12:10] LABS: TSH reflex Free T4 1.79 uIU/mL (0.32-4.0); Thyroid Stimulating Hormone 1.79 uIU/mL (0.32-4.0)
[2023-06-02 16:03] LABS: Prolactin 11.8 ng/mL
[2023-06-07 22:24] LABS: Testosterone, Total 22 ng/dL (2-45)
== END 2023-06-01 10:13 | disposition home or self-care (01) ==
LOC: HO.HMGCLDS 10:12
PROVIDERS: Obstetrics & Gynecology; PCP Internal Medicine; Visit Provider Internal Medicine
DX: Z00.01 Encounter for general adult medical examination with abnormal findings (principal); Z91.09 Other allergy status, other than to drugs and biological substances; L70.8 Other acne; E66.09 Other obesity due to excess calories; L30.9 Dermatitis, unspecified; R82.90 Unspecified abnormal findings in urine; N93.9 Abnormal uterine and vaginal bleeding, unspecified; I10 Essential (primary) hypertension
CPT/HCPCS: 36415; 80053; 80061; 83498; 84146; 84402; 84403; 84443; 85025

== ENCOUNTER 2023-07-23 14:30 | Outpatient (REF) | payer OTHER, SELFPAY ==
--- NOTE | ~2023-07-23 | US_ITS ---
EXAMINATION: US PELVIC AND TRANSVAGINAL CLINICAL INFORMATION: Ovarian cyst right side, last menstrual period 2 months ago. Follow-up ovarian cyst. COMPARISON: 04/19/2023 TECHNIQUE: Ultrasound of the pelvis is performed using both transabdominal and transvaginal transducers along with Doppler. Transvaginal imaging is performed due to inadequate visualization transabdominally. FINDINGS: The uterus is anteverted and measures 7.4 x 2.4 x 4.2 cm. No discrete fibroids are appreciated. Endometrial thickness is 2 mm. No significant free fluid. Left ovary measures 2.2 x 1.4 x 1.4 cm, volume 2.3 mL. Right ovary measures 1.9 x 1.0 x 1.8 cm, volume 1.7 mL. Bilateral ovaries are grossly unremarkable, although visualization is limited due to bowel gas. US/US pelvic and transvaginal IMPRESSION: 1. Interval resolution of previously identified bilateral complex ovarian cysts. Limited visualization due to bowel gas. 2. Endometrial thickness is 2 mm. 3. No discrete fibroids appreciated.
== END 2023-07-23 14:31 | disposition home or self-care (01) ==
LOC: HO.HMGCX 14:30
PROVIDERS: PCP Internal Medicine; Visit Provider Obstetrics & Gynecology
DX: N83.291 Other ovarian cyst, right side (principal); N83.292 Other ovarian cyst, left side
CPT/HCPCS: 76830; 76856

== ENCOUNTER 2023-07-31 15:30 | Outpatient (AMB) | payer OTHER, SELFPAY ==
--- NOTE | 2023-07-31 15:37 | A.OFFVIS_ITS ---
Vital Signs 07/31/23 15:39 Height 5 ft 4 in Weight 189 lb 9.561 oz BMI 32.5 BP 116/60 Intake Visit Reasons: US follow up Siebel Administrator Required: No Information Interpreted: non-clinical & clinical Accompanied by: Mother Allergies No Known Allergies Allergy (Verified 07/31/23 15:39) HPI Comments Details: Presenting for ultrasound follow-up. Ultrasound done in 07/29 showed the following: The uterus is anteverted and measures 7.4 x 2.4 x 4.2 cm. No discrete fibroids are appreciated. Endometrial thickness is 2 mm. No significant free fluid. Left ovary measures 2.2 x 1.4 x 1.4 cm, volume 2.3 mL. Right ovary measures 1.9 x 1.0 x 1.8 cm, volume 1.7 mL. Bilateral ovaries are grossly unremarkable, although visualization is limited due to bowel gas. Testosterone total and free , 17 hydroxyprogesterone, test TSH and prolactin all within normal The patient was switched to continuous control pills in 05/01, since then the pain has resolved completely [facility] Medical History Head congestion Encounter for control pills maintenance Acne cosmetica Surgical History History of eye surgery Family History Father Unknown family medical history Mother Medical history non-contributory Unknown family medical history Maternal Grandfather No problems noted. Maternal Grandmother Unknown family medical history Paternal Grandfather Medical history non-contributory Paternal Grandmother Medical history non-contributory Sister No problems noted. 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 Sexual orientation: Straight/Heterosexual Gender identity: Female Cognitive needs: No Hearing needs: No Vision needs: Yes Female Reproductive History Menstrual Age of Menarche: 10 Review of Systems Const All systems reviewed & are unremarkable except as noted in HPI and below Reports as per HPI and Reports no additional complaints GI Reports no additional complaints Reports no additional complaints Assessment & Plan Assessment & Plan (1) Pelvic pain: Comment: Cyclic possible endometriosis Code(s): R10.2 - Pelvic and perineal pain Category: Medical Plan: Discussed with the patient the results of the blood work and the ultrasound, recommended to stay on the continuous control pills, refill sent to the patient's pharmacy. All questions answered, the patient verbalized understanding (2) Complex cyst of both ovaries: Code(s): N83.291 - Other ovarian cyst, right side; N83.292 - Other ovarian cyst, left side Category: Medical Plan: Discussed with the patient ultrasound findings showing the previously identified bilateral complex cysts have resolved. The patient was instructed to call if symptoms recur. All questions were answered the patient verbalized understanding. Medications: Refilled L norgest/e.estradiol-e.estrad 0.15 mg-30 mcg (84)/10 mcg (7) 1 tab PO DAILY 84 days 84 ea 3RF Coding Level of Care Code Est Pt Level 3 (00515) Diagnoses Pelvic pain R10.2 Complex cyst of both ovaries N83.291; N83.292
[2023-07-31 15:39] VITALS: BP 116/60; BMI 32.5
== END 2023-07-31 15:51 | disposition home or self-care (01) ==
LOC: HO.HWS 15:30
PROVIDERS: PCP Internal Medicine; Visit Provider Obstetrics & Gynecology
DX: R10.2 Pelvic and perineal pain (principal); N83.291 Other ovarian cyst, right side; N83.292 Other ovarian cyst, left side
CPT/HCPCS: 99213

== ENCOUNTER → 2023-07-31 15:30 | Outpatient (BNVA) | payer OTHER, SELFPAY | PROVIDERS: PCP Internal Medicine; Visit Provider Obstetrics & Gynecology | DX: N83.291 Other ovarian cyst, right side (principal); N83.292 Other ovarian cyst, left side; R10.2 Pelvic and perineal pain | CPT/HCPCS: 99212 ==

== ENCOUNTER 2023-08-21 10:27 | Outpatient (AMB) | payer OTHER, SELFPAY ==
--- NOTE | 2023-08-21 10:33 | AM.OFFWIN_ITS ---
Intake Vital Signs 08/21/23 10:42 Height 5 ft 4 in Weight 190 lb BMI 32.6 BP 122/76 Blood Pressure Location Rt brachial Position Sitting Pulse 97 Pulse Source Pulse Oximeter Temp 97.9 F Temp Source Oral Pulse Oximetry (%) 98 Intake Visit Reasons: EST/uti (lobby) Intake Note: pt is here for possible uti, suspects it may be a bladder infection Patient Tobacco Use Status: Never used Tobacco Allergies No Known Allergies Allergy (Verified 08/21/23 10:43) Do you need a note to return to daycare/school/sports/work: No HPI HPI Comments History of Present Illness Details Patient is a 22yo F who presents with concern UTI She has had in past Started last night No dysuria but + frequency and urgency Tried cranberry juice and azo with little relief No worsening factors Minimal abdominal cramping and nausea No vomiting No fever or chills Denies vaginal discharge or bleeding or hematuria PFSH Medical History Head congestion Encounter for control pills maintenance Acne cosmetica Surgical History History of eye surgery Family History Father Unknown family medical history Mother Medical history non-contributory Unknown family medical history Maternal Grandfather No problems noted. Maternal Grandmother Unknown family medical history Paternal Grandfather Medical history non-contributory Paternal Grandmother Medical history non-contributory Sister No problems noted. 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 Sexual orientation: Straight/Heterosexual Gender identity: Female Cognitive needs: No Hearing needs: No Vision needs: Yes Female Reproductive History Menstrual Age of Menarche: 10 Review of Systems Const Denies chills and Denies fever(s) GI Denies abdominal pain Denies dysuria, Reports pelvic pain, Reports urinary hesitancy, Reports urinary urgency and Denies vaginal discharge Musc Denies back pain Physical Exam Vital Signs: Last Vital Signs Temp 97.9 F 08/21/23 10:42 Pulse 97 08/21/23 10:42 BP 122/76 08/21/23 10:42 Pulse Ox 98 08/21/23 10:42 BMI result Body Mass Index 32.6 General: Non-toxic, NAD. Speaking full sentences. Skin: Warm dry throughout Eye: EOMI Respiratory: CTA bilaterally. No wheezes, rales or rhonchi Cardiac: RRR. No murmur Abdominal: BS present. Non-tender. No CVAT MSK: Full ROM extremities. Neurology: A/O. No aphasia or facial droop. Gait without abnormality Psych: Good mood and affect Results AMB Urinalysis, Automated UA Leukoctes 125 Arnoldo/uL Last Edit by Jose Bueno CMA on 08/21/23 10:4 5 UA Nitrite Negative Last Edit by Jose Bueno CMA on 08/21/23 10:45 UA Urobilinogen 0.2 mg/dL Last Edit by Jose Bueno CMA on 08/21/23 10 :45 UA Protein 15 mg/dL Last Edit by Jose Bueno CMA on 08/21/23 10:45 UA pH 6.0 Last Edit by Jose Bueno CMA on 08/21/23 10:45 UA Blood 10 Adin/uL Last Edit by Jose Bueno CMA on 08/21/23 10:45 UA Specific Rainbow 1.015 Last Edit by Jose Bueno CMA on 08/21/23 10:45 UA Ketone Negative Last Edit by Jose Bueno CMA on 08/21/23 10:45 UA Bilirubin 0 mg/dL Last Edit by Jose Bueno CMA on 08/21/23 10:45 UA Glucose 0 mg/dL Last Edit by Jose Bueno CMA on 08/21/23 10:45 Results Reviewed Results Reviewed: Laboratory Last Values Urine pH (Auto) 6.0 08/21/23 10:44 Specific Rainbow (Auto) 1.015 08/21/23 10:44 Urine Protein (Auto) 15 mg/dL 08/21/23 10:44 Glucose (UA)(Auto) 0 mg/dL 08/21/23 10:44 Urine Ketones (Auto) Negative 08/21/23 10:44 Urine Blood (Auto) 10 Adin/uL 08/21/23 10:44 Urine Nitrite (Auto) Negative 08/21/23 10:44 Urine Bilirubin (Auto) 0 mg/dL 08/21/23 10:44 Urine Urobilinogen (Auto) 0.2 mg/dL 08/21/23 10:44 Leukocyte Esterase (Auto) 125 Arnoldo/uL 08/21/23 10:44 Assessment & Plan Assessment & Plan (1) Urinary tract infection: Code(s): N39.0 - Urinary tract infection, site not specified Qualifiers: Hematuria presence: without hematuria Urinary tract infection type: acute cystitis Qualified Code(s): N30.00 - Acute cystitis without hematuria Plan: Patient seen and evaluated. +leuks in urine HCG:negative Macrobid to pharmacy Take with food Patient gave verbal understanding and had no additional questions or concerns at time of discharge All questions answered Orders: Orders AMB Urinalysis Automated Today Z13.9 - Encounter for screening, unspecified Medications: New nitrofurantoin monohyd/m-cryst 100 mg (Macrobid) must administer with a meal/food 100 mg PO BID 14 caps 0RF Coding Level of Care Code Est Pt Level 3 (93097) Diagnoses Acute cystitis without hematuria N30.00 Hematuria presence: without hematuria Urinary tract infection type: acute cystitis
[2023-08-21 10:42] VITALS: BP 122/76; PULSE 97; TEMP 36.6; O2SAT 98; BMI 32.6
== END 2023-08-21 10:53 | disposition home or self-care (01) ==
PROVIDERS: PCP Internal Medicine; Visit Provider Physician Assistant
DX: N30.00 Acute cystitis without hematuria (principal); Z13.9 Encounter for screening, unspecified
CPT/HCPCS: 81003; 99213

== ENCOUNTER 2023-10-16 12:30 | Outpatient (AMB) | payer OTHER, SELFPAY ==
[2023-10-16 12:35] VITALS: BP 132/76; PULSE 97; O2SAT 96; BMI 32.5
--- NOTE | 2023-10-16 12:35 | A.OFFPC_ITS ---
Vital Signs 10/16/23 12:35 Height 5 ft 4 in Weight 189 lb 2 oz BMI 32.5 BP 132/76 Blood Pressure Location Rt brachial Position Sitting Pulse 97 Pulse Source Pulse Oximeter Pulse Oximetry (%) 96 Oxygen Delivery Method Room Air Intake Visit Reasons: 6 month fu Allergies No Known Allergies Allergy (Verified 10/16/23 12:38) Medication List - Last Reconciled 10/16/23 by Susana May MD fluticasone propionate 50 mcg/actuation (Flonase Allergy Relief) 1 spray intranasal DAILY 3 months L norgest/e.estradiol-e.estrad 0.15 mg-30 mcg (84)/10 mcg (7) 1 tab PO DAILY 91 days spironolactone 100 mg PO BID 90 days triamcinolone acetonide 0.1% 1 appl topical DAILY 30 days Tobacco use date assessed: 10/16/23 Dental Screening Dental Screen Date: 10/16/23 Did you have a dental visit in the last 12 months?: Yes Did you have a dental problem in the last 6 months where you did not have access to dental care?: No Was dental information given to patient?: Patient has dentist HPI 6 month fu HPI Details Patient is 22-year-old female came in today for her six-month follow-up appointment She is complaining of having diarrhea every time she eats Patient says that sometimes she wiped her self and she see blood as well She has been getting recurrent UTIs We talked about food diary today I would like her to keep a food diary to see if she can correlate her symptoms with food she is consuming And she should also stopped taking all dairy, patient says that she like ice cream do much I have placed a referral to gastroenterology to be evaluated for the symptoms especially that she is having some blood in stools Also personal hygiene was discussed, I would like her to start cleaning herself with border rather than wipes to avoid recurrent UTIs Labs were supposed to be done before this visit which she forgot she will do them today New set of lab order placed to be done in April when she will come in for physical exam She is taking spironolactone 50 mg b.i.d. for the treatment of acne which is helping her Allergies are stable patient is using Flonase nasal spray BMI is elevated need to lose weight. [facility] Medical History Head congestion Encounter for control pills maintenance Acne cosmetica Surgical History History of eye surgery Family History Father Unknown family medical history Mother Medical history non-contributory Unknown family medical history Maternal Grandfather No problems noted. Maternal Grandmother Unknown family medical history Paternal Grandfather Medical history non-contributory Paternal Grandmother Medical history non-contributory Sister No problems noted. 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 1. Little interest or pleasure in doing things: not at all 2. Feeling down, depressed, or hopeless: not at all 3. Trouble falling or staying asleep, or sleeping too much: more than half the days 4. Feeling tired or having little energy: not at all 5. Poor appetite or overeating: not at all 6. Feeling bad about yourself - or that you are a failure or have let yourself or your family down: not at all 7. Trouble concentrating on things, such as reading the newspaper or watching television: not at all 8. Moving or speaking so slowly that other people could have noticed. Or the opposite - being so fidgety or restless that you have been moving around a lot more than usual: not at all 9. Thoughts that you would be better off or of hurting yourself in some way: not at all Total score: 2 Depression Screening Interpretation: Negative Depression Screening Done: Yes 86055 - PHQ-9 Billing: Yes Source: Developed by Drs. Hector Luna, Janet Baron, Jose Antonio Magaña and colleagues, with an educational kash from [employer]. Thrive Questionnaire Date Thrive assessed: 10/16/23 I am a: Patient What is your living situation today?: I have a steady place to live Within the past 12 months, did the food you bought not last and you didn't have the money to get more?: Never true Within the past 12 months, did you worry whether your food would run out before you got money to buy more?: Never true Do you have trouble paying for medicines?: No Do you have trouble getting transportation to medical appointments?: No Do you have trouble paying your heating and electricity bill?: No Do you have trouble taking care of your child, family member or friend?: No Do you have trouble with day-to-day activities such as bathing, preparing meals, shopping, managing finances, etc.?: No Are you currently unemployed and looking for a job?: No Are you interested in more education?: No Please select the resources that you would like help with: None Currently or been in a relationship where the following occur: No concerns reported THRIVE Score: 0 AUDIT C Alcohol Use Questionnaire (AUDIT-C) 1. How often do you have a drink containing alcohol?: Never 3. How often do you have six or more drinks on one occasion?: Never Total Score: 0 Score Reviewed/Action Taken: Yes ALEAH-7 AMB Questionnaire ALEAH-7 Date ALEAH - 7 assessed: 10/16/23 Feeling nervous, anxious, or on edge: 0 = Not at all Not being able to stop or control worryin = Not at all Worrying too much about different things: 0 = Not at all Trouble relaxin = Not at all Being so restless that it is hard to sit still: 0 = Not at all Becoming easily annoyed or irritable: 0 = Not at all Feeling afraid as if something awful might happen: 0 = Not at all Total ALEAH-7 score (0-4 normal; 5-9 mild; 10-14 moderate; 15-21 severe): 0 Source: Developed by Drs. Hector Luna, Janet Baron, Jose Antonio Magaña and colleagues, with an educational kash from [employer]. ALEAH-7 Assessment Billing ALEAH-7 Assessment Tool: ALEAH-7 Assessment 59293 Review of Systems Const Denies chills and Denies fever(s) ENT Denies epistaxis and Denies nasal discharge Card Denies chest pain Resp Denies chest congestion, Denies cough and Denies hemoptysis GI Denies nausea Skin/Breast Denies rash Neuro Reports no additional complaints Psych Reports no additional complaints Endo Reports no additional complaints Physical exam (Primary Care) Vital Signs: Last Vital Signs Pulse 97 10/16/23 12:35 BP 132/76 10/16/23 12:35 Pulse Ox 96 10/16/23 12:35 Oxygen Delivery Method Room Air 10/16/23 12:35 BMI result Body Mass Index 32.5 Tobacco/Smoking Status: Tobacco use Status Tobacco use date assessed 10/16/23 10/16/23 12:39 Patient Tobacco Use Status Never used Tobacco 10/16/23 12:39 e-Cigarette/Vaping Use Never Used 10/16/23 12:39 PHQ-9: PHQ-9 Score PHQ-9: Total score 2 10/16/23 12:47 Depression Screening Interpretation: Negative Thrive Assessment: Date of Thrive Assessment Date Thrive assessed 10/16/23 10/16/23 12:47 Currently or been in a relationship where the following occur: No concerns reported Const General: cooperative, comfortable and no acute distress Orientation/consciousness: patient oriented x3 HENMT Head: Yes normocephalic Eyes General: appearance normal, both eyes and all related structures Neck Neck: Yes supple Resp Effort & Inspection: normal respiratory effort, no cough and no stridor Cardio Rhythm: regular rhythm Heart sounds: S1 normal heart sound present and S2 normal heart sound present Skin General skin exam: turgor normal Neuro General: patient oriented x3, tone normal and moves all extremities Extrem Right lower extremity: no edema Left lower extremity: no edema Assessment and Plan Assessment & Plan (1) Irritable bowel syndrome: Code(s): K58.9 - Irritable bowel syndrome without diarrhea Qualifiers: Irritable bowel syndrome type: with diarrhea Qualified Code(s): K58.0 - Irritable bowel syndrome with diarrhea (2) Bloody stools: Code(s): K92.1 - Melena (3) Environmental allergies: Code(s): Z91.09 - Other allergy status, other than to drugs and biological substances (4) Acne cosmetica: Code(s): L70.8 - Other acne (5) Obesity due to excess calories: Code(s): E66.09 - Other obesity due to excess calories Qualifiers: Obesity classification: adult class 1 (BMI 30 - 34.9) Serious obesity comorbidity presence: without serious comorbidity Body mass index: BMI 32.0- 32.9 Qualified Code(s): E66.09 - Other obesity due to excess calories; Z68.32 - Body mass index [BMI] 32.0-32.9, adult (6) Eczema: Code(s): L30.9 - Dermatitis, unspecified Qualifiers: Eczema type: unspecified Qualified Code(s): L30.9 - Dermatitis, unspecified Plan Patient is 22-year-old female came in today for her six-month follow-up appointment She is complaining of having diarrhea every time she eats Patient says that sometimes she wiped her self and she see blood as well She has been getting recurrent UTIs We talked about food diary today I would like her to keep a food diary to see if she can correlate her symptoms with food she is consuming And she should also stopped taking all dairy, patient says that she like ice cream do much I have placed a referral to gastroenterology to be evaluated for the symptoms especially that she is having some blood in stools Also personal hygiene was discussed, I would like her to start cleaning herself with border rather than wipes to avoid recurrent UTIs Labs were supposed to be done before this visit which she forgot she will do them today New set of lab order placed to be done in April when she will come in for physical exam She is taking spironolactone 50 mg b.i.d. for the treatment of acne which is helping her Allergies are stable patient is using Flonase nasal spray BMI is elevated need to lose weight. Eczema is stable with steroid cream Orders: Orders TSH reflex Free T4 6 Months E66.09 - Other obesity due to excess calories, K58.0 - Irritable bowel syndrome with diarrhea, K92.1 - Melena, L70.8 - Other acne, Z68.32 - Body mass index [BMI] 32.0-32.9, adult, Z91.09 - Other allergy status, other than to drugs and biological substances Complete Blood Count Auto Diff 6 Months E66.09 - Other obesity due to excess calories, K58.0 - Irritable bowel syndrome with diarrhea, K92.1 - Melena, L70.8 - Other acne, Z68.32 - Body mass index [BMI] 32.0-32.9, adult, Z91.09 - Other allergy status, other than to drugs and biological substances Comprehensive [place]. Panel Fast 6 Months E66.09 - Other obesity due to excess calories, K58.0 - Irritable bowel syndrome with diarrhea, K92.1 - Melena, L70.8 - Other acne, Z68.32 - Body mass index [BMI] 32.0-32.9, adult, Z91.09 - Other allergy status, other than to drugs and biological substances Lipid Panel 6 Months E66.09 - Other obesity due to excess calories, K58.0 - Irritable bowel syndrome with diarrhea, K92.1 - Melena, L70.8 - Other acne, Z68.32 - Body mass index [BMI] 32.0-32.9, adult, Z91.09 - Other allergy status, other than to drugs and biological substances Referrals Gastroenterology Referral K58.9 - Irritable bowel syndrome without diarrhea, K92.1 - Melena Coding Level of Care Code Est Pt Level 4 (69346) Diagnoses Irritable bowel syndrome with diarrhea K58.0 Irritable bowel syndrome type: with diarrhea Bloody stools K92.1 Environmental allergies Z91.09 Acne cosmetica L70.8 Class 1 obesity due to excess calories without serious comorbidity with body mass index (BMI) of 32.0 to 32.9 in adult E66.09; Z68.32 Obesity classification: adult class 1 (BMI 30 - 34.9) Serious obesity comorbidity presence: without serious comorbidity Body mass index: BMI 32.0-32.9 Eczema, unspecified type L30.9 Eczema type: unspecified Additional Codes ALEAH-7 Assessment Billing - ALEAH-7 Assessment Tool: ALEAH-7 Assessment [id number] ([id number])
== END 2023-10-16 17:56 | disposition home or self-care (01) ==
PROVIDERS: PCP Internal Medicine; Visit Provider Internal Medicine
DX: K58.0 Irritable bowel syndrome with diarrhea (principal); K92.1 Melena; Z91.09 Other allergy status, other than to drugs and biological substances; L70.8 Other acne; E66.09 Other obesity due to excess calories; Z68.32 Body mass index [BMI] 32.0-32.9, adult; L30.9 Dermatitis, unspecified
CPT/HCPCS: 99214

== ENCOUNTER 2023-10-16 12:47 | Outpatient (REF) | payer OTHER, SELFPAY ==
[2023-10-16 15:57] LABS: MANUAL DIFF FLAG NO
[2023-10-16 16:10] LABS: Basophils Absolute Auto 0.1 X10*3/uL (0.0-0.2); Basophils Percent Auto 0.8 % (0-2); Eosinophils Absolute Auto 0.1 X10*3/uL (0.0-0.4); Eosinophils Percent Auto 1.3 % (0-4); Hematocrit 38.4 % (37.0-47.0); Hemoglobin 13.1 g/dl (12.0-16.0); Imm Gran Abs Auto 0.03 X10*3/uL (0.00-0.03); Imm Gran Pct Auto 0.5 % (0.0-0.4); Lymphocytes Absolute Auto 2.1 X10*3/uL (1.2-4.9); Lymphocytes Percent Auto 33.3 % (20-40); Mean Corpuscular HGB Conc 34.1 g/dl (31.0-35.0); Mean Corpuscular Hemoglobin 29.4 pg (27.0-33.0); Mean Corpuscular Volume 86.3 fL (80.0-98.0); Mean Platelet Volume 10.1 fL (9.4-12.3); Monocytes Absolute Auto 0.6 X10*3/uL (0.1-1.2); Monocytes Percent Auto 8.8 % (2-11); Neutrophils Absolute Auto 3.5 x10*3/uL (2.0-8.3); Neutrophils Percent Auto 55.3 % (45-73); Platelet Count 400 X10*3/uL (160-400); Red Blood Count 4.45 X10*6/uL (4.20-5.50); Red Cell Distribution Width 12.2 % (11.0-16.0); White Blood Count 6.4 X10*3/uL (4.8-10.8)
[2023-10-16 16:36] LABS: Alanine Aminotransferase 14 U/L (0-31); Albumin Level 4.2 g/dL (3.5-5.0); Alkaline Phosphatase 73 U/L (39-117); Anion Gap 15 (12-20); Aspartate Amino Transferase 17 U/L (5-31); Bilirubin Total 0.3 mg/dL (0.0-1.0); Blood Urea Nitrogen 11 mg/dL (9-16); Calcium 9.6 mg/dL (8.4-10.2); Carbon Dioxide 20 mmol/L (22-29); Chloride 106 mmol/L (96-108); Estimated Glomerular Filt Rate > 60; Glucose Random 88 mg/dL (60-115); Potassium 3.9 mmol/L (3.3-5.1); Sodium 137 mmol/L (135-145)
== END 2023-10-16 12:48 | disposition home or self-care (01) ==
LOC: HO.HMGCLDS 12:47
PROVIDERS: PCP Internal Medicine; Visit Provider Internal Medicine
DX: L70.8 Other acne (principal); Z91.09 Other allergy status, other than to drugs and biological substances; L30.9 Dermatitis, unspecified; R82.90 Unspecified abnormal findings in urine; E66.09 Other obesity due to excess calories
CPT/HCPCS: 36415; 80053; 85025

== ENCOUNTER 2023-12-30 15:18 | Outpatient (AMB) | payer OTHER, SELFPAY ==
--- NOTE | 2023-12-30 15:26 | A.OFFVIS_ITS ---
Vital Signs 12/30/23 15:30 Height 5 ft 4 in Weight 189 lb 9.561 oz BMI 32.5 BP 133/70 Blood Pressure Location Lt brachial Position Sitting Pulse 84 Pulse Source Pulse Oximeter Pulse Oximetry (%) 97 Oxygen Delivery Method Room Air Intake Visit Reasons: Irritable bowel syndrome Intake Note: Pt presents to the office today for complaints of IBS. Pt states after she finishes a meal right away she will have to go to the bathroom but states she doesn't have a bowel movement but has bad cramping and gurgling in her stomach. Pt denies N/V but states occasionally she will have some diarrhea. Pt denies any constipation. Allergies No Known Allergies Allergy (Verified 12/30/23 15:26) HPI Comments Details: 23 y.o F who is here for abd sx as below. Reports urge to defecate shortly after eating however often times nothing would come out. Sometimes will have liquid diarrhea up to 3 times a day. Started in november. Also had one episode of seeing blood on wiping (does note that was after straining for a while). Appetite is unchanged. No nausea or vomiting. No unintentional weight loss. Resumed work 4 weeks ago and sx have since resolved. Does report having financial insecurity and stress during summer time. [facility] Medical History Head congestion Encounter for control pills maintenance Acne cosmetica Surgical History History of eye surgery Family History Father Unknown family medical history Mother Medical history non-contributory Unknown family medical history Maternal Grandfather No problems noted. Maternal Grandmother Unknown family medical history Paternal Grandfather Medical history non-contributory Paternal Grandmother Medical history non-contributory Sister No problems noted. 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 Sexual orientation: Straight/Heterosexual Gender identity: Female Cognitive needs: No Hearing needs: No Vision needs: Yes Female Reproductive History Menstrual Age of Menarche: 10 Review of Systems Const All systems reviewed & are unremarkable except as noted in HPI and below Physical Exam Vital Signs: Last Vital Signs Pulse 84 12/30/23 15:30 BP 133/70 12/30/23 15:30 Pulse Ox 97 12/30/23 15:30 Oxygen Delivery Method Room Air 12/30/23 15:30 BMI result Body Mass Index 32.5 No apparent distress Nonicteric Abdomen soft, nondistended Alert and oriented x3, normal gait Assessment & Plan Assessment & Plan (1) Abdominal cramping: Code(s): R10.9 - Unspecified abdominal pain Category: Medical (2) Diarrhea: Code(s): R19.7 - Diarrhea, unspecified Category: Medical Plan Discussed with the pt that self limiting trajectory is reassuring. Can get prelim labs for celiac, hyperthryoidism, IBD. If negative, no further endoscopic work up indicated in the absence of sx. Plan: - Labs as below - Will call if actionable findings, otherwise PRN follow up Orders: Orders Calprotectin, Fecal Today R10.9 - Unspecified abdominal pain, R19.7 - Diarrhea, unspecified C Reactive Protein Today R10.9 - Unspecified abdominal pain, R19.7 - Diarrhea, unspecified Transglutaminase IgA Today R10.9 - Unspecified abdominal pain, R19.7 - Diarrhea, unspecified Complete Blood Count no Diff Today R10.9 - Unspecified abdominal pain, R19.7 - Diarrhea, unspecified TSH reflex Free T4 Today R10.9 - Unspecified abdominal pain, R19.7 - Diarrhea, unspecified Immunoglobulin A Today R10.9 - Unspecified abdominal pain, R19.7 - Diarrhea, unspecified Coding Level of Care Code New Pt Level 4 (94255) Diagnoses Abdominal cramping R10.9 Diarrhea R19.7
[2023-12-30 15:30] VITALS: BP 133/70; PULSE 84; O2SAT 97; BMI 32.5
== END 2023-12-30 15:58 | disposition home or self-care (01) ==
PROVIDERS: PCP Internal Medicine; Visit Provider Internal Medicine
DX: R10.9 Unspecified abdominal pain (principal); R19.7 Diarrhea, unspecified
CPT/HCPCS: 99204

== ENCOUNTER 2023-12-30 15:18 | Outpatient (REF) | payer OTHER, SELFPAY ==
[2023-12-30 18:33] LABS: Hematocrit 39.5 % (37.0-47.0); Hemoglobin 13.4 g/dl (12.0-16.0); Mean Corpuscular HGB Conc 33.9 g/dl (31.0-35.0); Mean Corpuscular Hemoglobin 29.3 pg (27.0-33.0); Mean Corpuscular Volume 86.4 fL (80.0-98.0); Mean Platelet Volume 9.9 fL (9.4-12.3); Platelet Count 400 X10*3/uL (160-400); Red Blood Count 4.57 X10*6/uL (4.20-5.50); Red Cell Distribution Width 12.1 % (11.0-16.0); White Blood Count 7.6 X10*3/uL (4.8-10.8)
[2023-12-30 18:47] LABS: C Reactive Protein 1.36 mg/dL (< or = 0.50)
[2023-12-30 19:03] LABS: TSH reflex Free T4 1.96 uIU/mL (0.32-4.0)
[2023-12-31 08:10] LABS: Immunoglobulin A 492 mg/dL (47-310)
[2023-12-31 13:59] LABS: Transglutaminase IgA <1.0 U/mL
== END 2023-12-30 15:19 | disposition home or self-care (01) ==
LOC: HO.LAB 15:18
PROVIDERS: PCP Internal Medicine; Visit Provider Internal Medicine
DX: R10.9 Unspecified abdominal pain (principal); R19.7 Diarrhea, unspecified
CPT/HCPCS: 36415; 82784; 84443; 85027; 86140; 86364; 99202

== ENCOUNTER 2024-01-15 15:23 | Outpatient (AMB) | payer OTHER, SELFPAY ==
--- NOTE | 2024-01-15 15:49 | A.OFFVIS_ITS ---
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 It's intermittent in nature radiates to the back bilaterally, is associated with vaginal greenish discharge with no foul odor or irritation, no associated constipation, dysuria, frequency incontinence, no n/v, no feverishness, or chills no nausea or vomiting no GI or symptoms. [facility] Medical History Head congestion Encounter for control pills maintenance Acne cosmetica Surgical History History of eye surgery Family History Father Unknown family medical history Mother Medical history non-contributory Unknown family medical history Maternal Grandfather No problems noted. Maternal Grandmother Unknown family medical history Paternal Grandfather Medical history non-contributory Paternal Grandmother Medical history non-contributory Sister No problems noted. 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 Sexual orientation: Straight/Heterosexual Gender identity: Female Cognitive needs: No Hearing needs: No Vision needs: Yes Female Reproductive History Menstrual Age of Menarche: 10 Date of last menstrual period: 01/02/24 Review of Systems Const All systems reviewed & are unremarkable except as noted in HPI and below Physical Exam Vital Signs: BMI result Body Mass Index 32.5 General: Yes no CVA tenderness External Female Exam: normal external appearance and normal appearance of the urethra Speculum Exam - Vagina: normal appearance of the vagina, normal palpation, no lesions and no masses Speculum Exam - Cervix: normal appearance of the cervix, normal palpation, no lesions, no masses and nontender Bimanual exam- vagina & uterus: normal bimanual exam, normal palpation, uterine size normal, normal palpation, uterine shape normal, No Cervical tenderness present and non-tender Bimanual Exam- Adnexa, other: normal adnexae Back/Spine/Pelvis Back: no CVA tenderness Results AMB Urinalysis, Automated UA Leukoctes 0 Arnoldo/uL Last Edit by MACO Kingston on 01/15/24 16:06 UA Nitrite Negative Last Edit by Maureen Lynch [facility] on 01/15/24 16:06 UA Urobilinogen 0 mg/dL Last Edit by Maureen Lynch [facility] on 01/15/24 16:0 6 UA Protein 0 mg/dL Last Edit by Maureen Lynch [facility] on 01/15/24 16:06 UA pH 5.5 Last Edit by Maureen Lynch [facility] on 01/15/24 16:06 UA Blood 0 Adin/uL Last Edit by Maureen Lynch [facility] on 01/15/24 16:06 UA Specific [place] 1.030 Last Edit by Maureen Lynch [facility] on 01/15/24 16:06 UA Ketone Negative Last Edit by MACO Kingston on 01/15/24 16:06 UA Bilirubin 0 mg/dL Last Edit by Maureen Lynch [facility] on 01/15/24 16:06 UA Glucose 0 mg/dL Last Edit by Maureen Lynch [facility] on 01/15/24 16:06 AMB Test Urine AMB Test Urine Negative Last Edit by Maureen Lynch [place] on 01/15/24 16:06 Assessment & Plan Assessment & Plan (1) Female pelvic pain: Code(s): R10.2 - Pelvic and perineal pain Category: Medical Plan: Urine dip and test done in the office were both negative. GC and chlamydia with BV panel taken and pelvic ultrasound ordered. Discussed with the patient the differential diagnosis of pelvic pain including but not limited to adnexal, uterine masses, pelvic infections (PID), GI the (Irritable bowel syndrome, diverticulitis, others), musculoskeletal, myofascial pain abdominal wall , adhesions, endometriosis, psychological and others causes. Will check results and treat accordingly. All questions answered, the patient verbalized understanding. Instructed the patient to schedule follow-up appointment in 2 weeks Orders: Orders Bacterial Vaginosis Panel Today R10.2 - Pelvic and perineal pain US pelvic and transvaginal Today R10.2 - Pelvic and perineal pain AMB Urinalysis Automated Today R10.2 - Pelvic and perineal pain CT NG by PCR Today R10.2 - Pelvic and perineal pain AMB HCG Urine Test Today R10.2 - Pelvic and perineal pain Coding Level of Care Code Est Pt Level 3 (28246) Diagnoses Female pelvic pain R10.2
[2024-01-15 15:51] VITALS: BMI 32.5
== END 2024-01-15 16:17 | disposition home or self-care (01) ==
PROVIDERS: PCP Internal Medicine; Visit Provider Obstetrics & Gynecology
DX: R10.2 Pelvic and perineal pain (principal)
CPT/HCPCS: 99213

== ENCOUNTER 2024-01-15 15:23 | Outpatient (REF) | payer OTHER, SELFPAY ==
[2024-01-16 05:43] LABS: CT PCR NOT DETECTED (Not Detect.); NG PCR NOT DETECTED (Not Detect.)
[2024-01-16 11:03] LABS: Bacterial Vaginosis PCR NEGATIVE (Negative); Candida Group PCR NOT DETECTED (Not Detect); Candida glab krusei PCR NOT DETECTED (Not Detect); Trichomonas vaginalis PCR NOT DETECTED (Not Detect)
== END 2024-01-15 15:24 | disposition home or self-care (01) ==
LOC: HO.LAB 15:23
PROVIDERS: PCP Internal Medicine; Visit Provider Obstetrics & Gynecology
DX: R10.2 Pelvic and perineal pain (principal)
CPT/HCPCS: 0352U; 81003; 81025; 87491; 87591; 99212

== ENCOUNTER 2024-01-15 15:58 | Outpatient (REF) | payer OTHER, SELFPAY | END 2024-01-15 15:59 | disposition home or self-care (01) | LOC: HO.LNP 15:58 | PROVIDERS: Internal Medicine; Visit Provider Obstetrics & Gynecology | DX: R10.9 Unspecified abdominal pain (principal); R19.7 Diarrhea, unspecified | CPT/HCPCS: 83993 ==

== ENCOUNTER 2024-01-23 15:52 | Outpatient (REF) | payer OTHER, SELFPAY ==
--- NOTE | ~2024-01-23 | US_ITS ---
EXAMINATION: US PELVIS CLINICAL INFORMATION: Pelvic and perineal pain COMPARISON: Pelvic ultrasound 07/23/2023, 04/19/2023 and 03/09/2021 TECHNIQUE: Ultrasound of the pelvis is performed using both transabdominal and transvaginal transducers along with Doppler. Transvaginal imaging is performed due to inadequate visualization transabdominally. FINDINGS: Uterus: The uterus is anteverted and measures 6.9 x 2.3 x 3.7 cm. The double wall endometrial thickness is 3 mm. The uterus is smooth in contour and has normal myometrial echogenicity. No visible fibroid. Nabothian cysts are present in the cervix. Adnexa: Both ovaries are visualized. There is normal color flow to the adnexa. There is no ovarian torsion. There is no pelvic ascites or fluid collection. Right ovary measures 1.9 x 1.2 x 1.2 cm. Left ovary measures 2.6 x 1.6 x 1.1 cm. US/US pelvic and transvaginal IMPRESSION: Normal pelvic ultrasound. Electronically signed by: Donavan Jiménez MD 03/22/2024 10:31 PM NIESHA JOYA
== END 2024-01-23 15:53 | disposition home or self-care (01) ==
LOC: HO.US 15:52
PROVIDERS: PCP Internal Medicine; Visit Provider Obstetrics & Gynecology
DX: R10.2 Pelvic and perineal pain (principal)
CPT/HCPCS: 76830; 76856

== ENCOUNTER 2024-02-20 15:15 | Outpatient (REF) | payer OTHER, SELFPAY ==
[2024-02-21 11:20] LABS: Influenza A PCR NEGATIVE (Negative); Influenza B PCR NEGATIVE (Negative); Resp Syncy Virus RNA Qual PCR NEGATIVE (Negative); SARS COV2 PCR INHOUSE NEGATIVE (Negative)
== END 2024-02-20 15:16 | disposition home or self-care (01) ==
LOC: HO.LAB 15:15
PROVIDERS: PCP Internal Medicine; Visit Provider Physician Assistant
DX: J06.9 Acute upper respiratory infection, unspecified (principal); J18.9 Pneumonia, unspecified organism
CPT/HCPCS: 0241U; 99212

== ENCOUNTER 2024-02-20 15:15 | Outpatient (AMB) | payer OTHER, SELFPAY ==
--- NOTE | 2024-02-20 15:19 | AM.OFFWIN_ITS ---
Intake Vital Signs 02/20/24 15:20 Height 5 ft 4 in Weight 189 lb BMI 32.4 BP 130/72 Blood Pressure Location Rt brachial Position Sitting Pulse 80 Pulse Source Pulse Oximeter Temp 97.5 F Temp Source Oral Pulse Oximetry (%) 98 Intake Visit Reasons: EP congested, ? sinus infection Intake Note: pt is here for congestion and possible sinus infection Patient Tobacco Use Status: Never used Tobacco Allergies No Known Allergies Allergy (Verified 02/20/24 15:20) Do you need a note to return to daycare/school/sports/work: No HPI HPI Comments History of Present Illness Details Patient is a 23-year-old female complaining of 6 days of nasal congestion, a productive cough with yellow sputum, sinus pain and fatigue. She denies any ear pain, fevers, shortness of breath or wheezing. She denies a history of asthma or COPD. She states she is eating and drinking but does not have much of an appetite. She tells me she has been using Sudafed, DayQuil, NyQuil nasal spray and Flonase. She did not test for COVID at home. 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 [facility] Medical History Head congestion Encounter for control pills maintenance Acne cosmetica Surgical History History of eye surgery Family History Father Unknown family medical history Mother Medical history non-contributory Unknown family medical history Maternal Grandfather No problems noted. Maternal Grandmother Unknown family medical history Paternal Grandfather Medical history non-contributory Paternal Grandmother Medical history non-contributory Sister No problems noted. 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 Sexual orientation: Straight/Heterosexual Gender identity: Female Cognitive needs: No Hearing needs: No Vision needs: Yes Female Reproductive History Menstrual Age of Menarche: 10 Review of Systems Const All systems reviewed & are unremarkable except as noted in HPI and below Physical Exam Vital Signs: Last Vital Signs Temp 97.5 F 02/20/24 15:20 Pulse 80 02/20/24 15:20 BP 130/72 02/20/24 15:20 Pulse Ox 98 02/20/24 15:20 BMI result Body Mass Index 32.4 Const General: cooperative, healthy appearing, comfortable and no acute distress Orientation/consciousness: patient oriented x3 Limitations: no limitations HEENT Head: Yes normal to inspection Ears: hearing grossly normal bilaterally, external ears normal and TM's normal bilaterally General nose exam: Normal external nose present, Normal nares present and No nasal discharge present Face and sinus: Yes normal facial exam and Yes sinuses nontender Mouth: Normal oral and palatal mucosa present and moist mucous membranes Throat: Yes tonsils normal, Yes uvula midline and Yes posterior oropharynx abnormal (Erythema) Eyes General: appearance normal, both eyes and all related structures Neck Neck: Yes normal visual inspection Resp Effort & Inspection: normal respiratory effort, able to speak in complete sentences, no respiratory distress, not tachypneic, no tripod positioning and no use of accessory muscles Auscultation: clear to auscultation bilaterally Cardio Rate: regular rate Rhythm: regular rhythm Heart sounds: normal S1 and S2 Skin General skin exam: no rashes or lesions noted Neuro General: patient oriented x3 Extrem General: Yes normal to inspection and Yes no clubbing, cyanosis or edema Assessment & Plan Assessment & Plan (1) Atypical pneumonia: Code(s): J18.9 - Pneumonia, unspecified organism Plan: Vital signs are stable, patient well-appearing and lung sounds are clear, as it has been about a week of symptoms, we will treat as a walking pneumonia, sent Z- Alban to pharmacy. Also did send flu COVID and RSV testing. Plan See above Orders: Orders SARS-CoV2/FLU/RSV Today J06.9 - Acute upper respiratory infection, unspecified Medications: New azithromycin For 250 mg dose pack: take 500 mg today (day 1), then 250 mg for 4 days (days 2-5) PO 6 tabs 0RF Coding Level of Care Code Est Pt Level 3 (40935) Diagnoses Atypical pneumonia J18.9
[2024-02-20 15:20] VITALS: BP 130/72; PULSE 80; TEMP 36.4; O2SAT 98; BMI 32.4
== END 2024-02-20 15:37 | disposition home or self-care (01) ==
PROVIDERS: PCP Internal Medicine; Visit Provider Physician Assistant
DX: J18.9 Pneumonia, unspecified organism (principal)

== ENCOUNTER 2024-04-02 14:29 | Outpatient (REF) | payer OTHER, SELFPAY ==
[2024-04-02 15:57] LABS: MANUAL DIFF FLAG NO
[2024-04-02 16:08] LABS: Basophils Absolute Auto 0.1 X10*3/uL (0.0-0.2); Basophils Percent Auto 0.6 % (0-2); Eosinophils Absolute Auto 0.2 X10*3/uL (0.0-0.4); Eosinophils Percent Auto 1.8 % (0-4); Hematocrit 41.5 % (37.0-47.0); Hemoglobin 13.9 g/dl (12.0-16.0); Imm Gran Abs Auto 0.05 X10*3/uL (0.00-0.03); Imm Gran Pct Auto 0.6 % (0.0-0.4); Lymphocytes Absolute Auto 2.6 X10*3/uL (1.2-4.9); Lymphocytes Percent Auto 29.3 % (20-40); Mean Corpuscular HGB Conc 33.5 g/dl (31.0-35.0); Mean Corpuscular Hemoglobin 28.9 pg (27.0-33.0); Mean Corpuscular Volume 86.3 fL (80.0-98.0); Mean Platelet Volume 9.8 fL (9.4-12.3); Monocytes Absolute Auto 0.8 X10*3/uL (0.1-1.2); Monocytes Percent Auto 8.6 % (2-11); Neutrophils Absolute Auto 5.3 x10*3/uL (2.0-8.3); Neutrophils Percent Auto 59.1 % (45-73); Platelet Count 360 X10*3/uL (160-400); Red Blood Count 4.81 X10*6/uL (4.20-5.50); White Blood Count 8.9 X10*3/uL (4.8-10.8)
[2024-04-02 16:42] LABS: Alanine Aminotransferase 18 U/L (0-31); Albumin Level 3.9 g/dL (3.5-5.0); Anion Gap 16 (12-20); Aspartate Amino Transferase 25 U/L (5-31); Bilirubin Total 0.3 mg/dL (0.0-1.0); Blood Urea Nitrogen 8 mg/dL (9-16); Calcium 9.8 mg/dL (8.4-10.2); Carbon Dioxide 21 mmol/L (22-29); Chloride 105 mmol/L (96-108); Cholesterol 227 mg/dL (<200); Estimated Glomerular Filt Rate > 60; Glucose Fasting 85 mg/dL (60-99); HDL Cholesterol 56 mg/dL (>40); LDL Cholesterol Calculated 133 mg/dL (<100); Potassium 4.1 mmol/L (3.3-5.1); Sodium 138 mmol/L (135-145); Total Protein 8.5 g/dL (6.5-8.0); Triglycerides 193 mg/dL (<150)
[2024-04-02 16:47] LABS: TSH reflex Free T4 1.27 uIU/mL (0.32-4.0)
[2024-04-02 17:09] LABS: Alkaline Phosphatase 80 U/L (39-117)
== END 2024-04-02 14:30 | disposition home or self-care (01) ==
LOC: HO.HMGCLDS 14:29
PROVIDERS: PCP Internal Medicine; Visit Provider Internal Medicine
DX: K92.1 Melena (principal); E66.01 Morbid (severe) obesity due to excess calories; Z68.32 Body mass index [BMI] 32.0-32.9, adult; L70.8 Other acne; Z91.09 Other allergy status, other than to drugs and biological substances; K58.0 Irritable bowel syndrome with diarrhea
CPT/HCPCS: 36415; 80053; 80061; 84443; 85025

== ENCOUNTER 2024-04-06 10:25 | Outpatient (AMB) | payer OTHER, SELFPAY ==
--- NOTE | 2024-04-06 11:38 | MHC.OFFWIV ---
Intake Vital Signs 04/06/24 11:52 Height 5 ft 4 in Weight 192 lb BMI 33.0 BP 118/80 Blood Pressure Location Rt brachial Position Sitting Pulse 113 H Pulse Source Pulse Oximeter Pulse Oximetry (%) 98 Oxygen Delivery Method Room Air Intake Visit Reasons: EP clogged ears (Car) [phone] Intake Note: Patient here for bilat ear pain that has been present for about 2 days. Patient Tobacco Use Status: Never used Tobacco Allergies No Known Allergies Allergy (Verified 04/06/24 11:39) Do you need a note to return to daycare/school/sports/work: No HPI EP clogged ears (Car) [phone] HPI Details This note is constructed using voice recognition software. While every effort has been made to ensure accuracy, industrial rehabilitation consultant errors may have been included. The patient is a 23 year old female who presents to the clinic today with ear clogged, right more than left. She denies fever, chills, cough, shortness of breath. She also reports a slightly congested nose, she is taking allergy pills for the past several years Cynthia, as well as Flonase nasal spray 1 spray in each nostril twice per day. She denies any sick contacts., drainage from her ear. [facility] Medical History Head congestion Encounter for control pills maintenance Acne cosmetica Surgical History History of eye surgery Family History Father Unknown family medical history Mother Medical history non-contributory Unknown family medical history Maternal Grandfather No problems noted. Maternal Grandmother Unknown family medical history Paternal Grandfather Medical history non-contributory Paternal Grandmother Medical history non-contributory Sister No problems noted. 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 Sexual orientation: Straight/Heterosexual Gender identity: Female Cognitive needs: No Hearing needs: No Vision needs: Yes Female Reproductive History Menstrual Age of Menarche: 10 Review of Systems Const All systems reviewed & are unremarkable except as noted in HPI and below Physical Exam Vital Signs: Last Vital Signs Pulse 113 H 04/06/24 11:52 BP 118/80 04/06/24 11:52 Pulse Ox 98 04/06/24 11:52 Oxygen Delivery Method Room Air 04/06/24 11:52 BMI result Body Mass Index 33.0 Const General: cooperative, healthy appearing, comfortable and no acute distress Orientation/consciousness: patient oriented x3 Limitations: no limitations HEENT Head: Yes normal to inspection Ears: hearing grossly normal bilaterally, external ears normal and TM abnormal retracted General nose exam: Normal external nose present, No nasal discharge present and Abnormal mucous membranes and turbinates present boggy and pale Face and sinus: Yes normal facial exam and Yes sinuses nontender Mouth: Normal oral and palatal mucosa present and moist mucous membranes Throat: Yes tonsils normal, Yes uvula midline, Yes posterior oropharynx abnormal (Erythema), Yes postnasal drainage and Yes cobblestoning Eyes General: appearance normal, both eyes and all related structures Neck Neck: Yes normal visual inspection Resp Effort & Inspection: normal respiratory effort, able to speak in complete sentences, Actively coughing, no respiratory distress, not tachypneic, no tripod positioning and no use of accessory muscles Auscultation: clear to auscultation bilaterally Cardio Rate: regular rate Rhythm: regular rhythm Heart sounds: normal S1 and S2 Skin General skin exam: no rashes or lesions noted Neuro General: patient oriented x3 Extrem General: Yes normal to inspection and Yes no clubbing, cyanosis or edema Assessment & Plan Assessment & Plan (1) Allergic rhinitis: Code(s): J30.9 - Allergic rhinitis, unspecified Qualifiers: Allergic rhinitis trigger: unspecified Allergic rhinitis seasonality: unspecified Qualified Code(s): J30.9 - Allergic rhinitis, unspecified Plan: Supportive measures encouraged and reviewed. Advised patient to try a Flonase nasal spray and second-generation antihistamine such as Zyrtec, Claritin, Cynthia or similar. Advised consideration of sinus rinse if needed. Advised patient to follow up with primary care provider with worsening or failure to resolve. Plan See above for full details and plan. Coding Level of Care Code Est Pt Level 3 (71859) Diagnoses Allergic rhinitis, unspecified seasonality, unspecified trigger J30.9 Allergic rhinitis trigger: unspecified Allergic rhinitis seasonality: unspecified
[2024-04-06 11:52] VITALS: BP 118/80; PULSE 113; O2SAT 98; BMI 33.0
== END 2024-04-06 12:30 | disposition home or self-care (01) ==
PROVIDERS: PCP Internal Medicine; Visit Provider Registered Nurse
DX: J30.9 Allergic rhinitis, unspecified (principal)

== ENCOUNTER → 2024-04-06 10:25 | Outpatient (BNVA) | payer OTHER, SELFPAY | PROVIDERS: PCP Internal Medicine; Visit Provider Registered Nurse | DX: J30.9 Allergic rhinitis, unspecified (principal) | CPT/HCPCS: 99212 ==

== ENCOUNTER 2024-04-28 15:23 | Outpatient (AMB) | payer OTHER, SELFPAY ==
[2024-04-28 15:25] VITALS: BP 124/72; PULSE 103; O2SAT 98; BMI 32.7
--- NOTE | 2024-04-28 15:25 | A.OFFPC_ITS ---
Vital Signs 04/28/24 15:25 Height 5 ft 4 in Weight 190 lb 4 oz BMI 32.7 BP 124/72 Blood Pressure Location Rt brachial Position Sitting Pulse 103 H Pulse Source Pulse Oximeter Pulse Oximetry (%) 98 Oxygen Delivery Method Room Air Intake Visit Reasons: Annual PE Allergies No Known Allergies Allergy (Verified 04/28/24 15:25) Medication List - Last Reconciled 04/28/24 by Susana May MD fluticasone propionate 50 mcg/actuation (Flonase Allergy Relief) 1 spray intranasal DAILY 3 months L norgest/e.estradiol-e.estrad 0.15 mg-30 mcg (84)/10 mcg (7) 1 tab PO DAILY 91 days spironolactone 100 mg PO BID 90 days Tobacco use date assessed: 04/28/24 Dental Screening Dental Screen Date: 04/28/24 Did you have a dental visit in the last 12 months?: Yes Did you have a dental problem in the last 6 months where you did not have access to dental care?: No Was dental information given to patient?: Patient has dentist HPI Annual PE HPI Details Physical exam appointment - The patient is a 23-year-old female pr esenting for a routine physical examination and medication management. - She is currently managing acne with sp ironolactone, initially prescribed by dermatology. Been continued through PCP office now - Reports allergic rhinitis for which Fl uticasone is prescribed. - History of ovarian cysts with prior im aging confirming cyst resolution by January of the previous year. - Complains of sharp pelvic and lower ba ck pain, uncorrelated to current imaging findings, possibly exacerbated by posture. - Reports consistent use of contro l to manage cysts, resulting in suppression of menstruation. Health Maintenance - Regular monitoring of LDL levels, note d to be 133, within acceptable limits. - Thyroid functions reported as normal. - Blood work done on April 02 with no concerning results. - Continued need for six-monthly laborat ory monitoring due to spironolactone use. Medications - Spironolactone 50 mg daily, indicated for acne - Fluticasone nasal spray, indicated for allergic rhinitis Diagnostic results - Bloodwork from April 02 indicates LDL of 133 and normal thyroid function. - Ultrasounds dated in April, July, a january indicate resolution of ovarian cysts. Patient Instructions - Use spironolactone as directed, twice daily, 50 mg split into half-dose twice daily for acne management. - Continue Fluticasone nasal spray as pe r allergy symptoms. - Attend regular six-month follow-ups to monitor effects of spironolactone. Review of Systems - General: Denies dizziness or lighthead edness. - Respiratory: Denies shortness of breat h. - Musculoskeletal: Reports sharp lower b ack and pelvic pain, not constant. - Endocrine: Negative for constipation. - Reproductive: Denies nausea or vomitin g; reports pressure in the pelvic area. - Neurological: No headaches no dizzin ess - Ear nose throat: No sore throat no hearing difficulty no ear pain - Cardiovascular: No syncope, no chest pain, no palpitations - Gastrointestinal: No nausea vomiting or diarrhea - Genitourinary: No dysuria - Skin: No new complaints Physical Exam General: Cooperative, healthy appearing, comfortable, no acute distress Orientation: Patient oriented x3 Limitations: None Head: Normal to inspection Ears: Within normal limit visually, no wax, allergies causing fluid buildup Nose: Normal external nose present Face and sinus: Normal facial exam Eyes: Appearance normal, extraocular movement intact pupils reactive Neck: Normal visual inspection and supple Respiratory: Normal respiratory effort and able to speak in complete sentences. Clear to auscultation, no stridor Cardiovascular: S1 and S2 GI: Normal to inspection. Soft to palpation and nontender except minimal discomfort left lower pelvic area Skin: Turgor normal, no acute findings, spironolactone helps with acne Neuro: Patient oriented x3, motor sensory intact, balance intact, tandem pass Extremities: Normal to inspection, joints are okay, no pain noted during exam [facility] Medical History Head congestion Encounter for control pills maintenance Acne cosmetica Surgical History History of eye surgery Family History Father Unknown family medical history Mother Medical history non-contributory Unknown family medical history Maternal Grandfather No problems noted. Maternal Grandmother Unknown family medical history Paternal Grandfather Medical history non-contributory Paternal Grandmother Medical history non-contributory Sister No problems noted. 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 1. Little interest or pleasure in doing things: not at all 2. Feeling down, depressed, or hopeless: not at all 3. Trouble falling or staying asleep, or sleeping too much: not at all 4. Feeling tired or having little energy: not at all 5. Poor appetite or overeating: not at all 6. Feeling bad about yourself - or that you are a failure or have let yourself or your family down: not at all 7. Trouble concentrating on things, such as reading the newspaper or watching television: not at all 8. Moving or speaking so slowly that other people could have noticed. Or the opposite - being so fidgety or restless that you have been moving around a lot more than usual: not at all 9. Thoughts that you would be better off or of hurting yourself in some way: not at all Total score: 0 Depression Screening Interpretation: Negative Depression Screening Done: Yes 97130 - PHQ-9 Billing: Yes Source: Developed by Drs. Hector Luna, Janet Baron, Jose Antonio Magaña and colleagues, with an educational kash from [employer]. Thrive Questionnaire Date Thrive assessed: 04/28/24 I am a: Patient What is your living situation today?: I have a steady place to live Within the past 12 months, did the food you bought not last and you didn't have the money to get more?: Never true Within the past 12 months, did you worry whether your food would run out before you got money to buy more?: Never true Do you have trouble paying for medicines?: No Do you have trouble getting transportation to medical appointments?: No Do you have trouble paying your heating and electricity bill?: No Do you have trouble taking care of your child, family member or friend?: No Do you have trouble with day-to-day activities such as bathing, preparing meals, shopping, managing finances, etc.?: No Are you currently unemployed and looking for a job?: No Are you interested in more education?: No Please select the resources that you would like help with: None Currently or been in a relationship where the following occur: No concerns reported THRIVE Score: 0 AUDIT C Alcohol Use Questionnaire (AUDIT-C) 1. How often do you have a drink containing alcohol?: Monthly or less 2. How many drinks containing alcohol do you have on a typical day when you are drinking?: 1 or 2 3. How often do you have six or more drinks on one occasion?: Never Total Score: 1 Score Reviewed/Action Taken: Yes ALEAH-7 AMB Questionnaire ALEAH-7 Date ALEAH - 7 assessed: 04/28/24 Feeling nervous, anxious, or on edge: 0 = Not at all Not being able to stop or control worryin = Not at all Worrying too much about different things: 0 = Not at all Trouble relaxin = Not at all Being so restless that it is hard to sit still: 0 = Not at all Becoming easily annoyed or irritable: 0 = Not at all Feeling afraid as if something awful might happen: 0 = Not at all Total ALEAH-7 score (0-4 normal; 5-9 mild; 10-14 moderate; 15-21 severe): 0 Source: Developed by Drs. Hector Luna, Janet Baron, Jose Antonio Magaña and colleagues, with an educational kash from [employer]. ALEAH-7 Assessment Billing ALEAH-7 Assessment Tool: ALEAH-7 Assessment 63017 Physical exam (Primary Care) Vital Signs: Last Vital Signs Pulse 103 H 04/28/24 15:25 BP 124/72 04/28/24 15:25 Pulse Ox 98 04/28/24 15:25 Oxygen Delivery Method Room Air 04/28/24 15:25 BMI result Body Mass Index 32.7 Tobacco/Smoking Status: Tobacco use Status Tobacco use date assessed 04/28/24 04/28/24 15:27 Patient Tobacco Use Status Never used Tobacco 04/28/24 15:27 e-Cigarette/Vaping Use Never Used 04/28/24 15:27 PHQ-9: PHQ-9 Score PHQ-9: Total score 0 04/28/24 15:27 Depression Screening Interpretation: Negative Thrive Assessment: Date of Thrive Assessment Date Thrive assessed 04/28/24 04/28/24 15:27 Currently or been in a relationship where the following occur: No concerns reported Coding Level of Care Code Est Pt Level 3 (73953) Est Pt Prev Care 18-39y(38760) Diagnoses Encounter for general adult medical examination with abnormal findings Z00.01 Environmental allergies Z91.09 Acne cosmetica L70.8 Female pelvic pain R10.2 Class 1 obesity due to excess calories without serious comorbidity with body mass index (BMI) of 32.0 to 32.9 in adult E66.09; Z68.32 Obesity classification: adult class 1 (BMI 30 - 34.9) Serious obesity comorbidity presence: without serious comorbidity Body mass index: BMI 32.0-32.9 Additional Codes ALEAH-7 Assessment Billing - ALEAH-7 Assessment Tool: ALEAH-7 Assessment 31649 ([id number]) PHQ-9 - 10194 - PHQ-9 Billing: Yes ([id number]) Assessment & Plan Assessment & Plan (1) Encounter for general adult medical examination with abnormal findings: Code(s): Z00.01 - Encounter for general adult medical examination with abnormal findings Category: Medical (2) Environmental allergies: Code(s): Z91.09 - Other allergy status, other than to drugs and biological substances Category: Medical (3) Acne cosmetica: Code(s): L70.8 - Other acne Category: Medical (4) Female pelvic pain: Code(s): R10.2 - Pelvic and perineal pain Category: Medical (5) Obesity due to excess calories: Code(s): E66.09 - Other obesity due to excess calories Category: Medical Qualifiers: Obesity classification: adult class 1 (BMI 30 - 34.9) Serious obesity comorbidity presence: without serious comorbidity Body mass index: BMI 32.0- 32.9 Qualified Code(s): E66.09 - Other obesity due to excess calories; Z68.32 - Body mass index [BMI] 32.0-32.9, adult Plan Physical exam appointment - The patient is a 23-year-old female presenting for a routine physical examination and medication management. - She is currently managing acne with spironolactone, initially prescribed by dermatology. Been continued through PCP office now - Reports allergic rhinitis for which Fluticasone is prescribed. - History of ovarian cysts with prior imaging confirming cyst resolution by January of the previous year. - Complains of sharp pelvic and lower back pain, uncorrelated to current imaging findings, possibly exacerbated by posture. - Reports consistent use of control to manage cysts, resulting in suppression of menstruation. Health Maintenance - Regular monitoring of LDL levels, noted to be 133, within acceptable limits. - Thyroid functions reported as normal. - Blood work done on April 02 with no concerning results. - Continued need for six-monthly laboratory monitoring due to spironolactone use. Medications - Spironolactone 50 mg daily, indicated for acne - Fluticasone nasal spray, indicated for allergic rhinitis Diagnostic results - Bloodwork from April 02 indicates LDL of 133 and normal thyroid function. - Ultrasounds dated in April, July, and January indicate resolution of ovarian cysts. Patient Instructions - Use spironolactone as directed, twice daily, 50 mg split into half-dose twice daily for acne management. - Continue Fluticasone nasal spray as per allergy symptoms. - Attend regular six-month follow-ups to monitor effects of spironolactone. Orders: Orders Comprehensive Met. Panel 5 Months L70.8 - Other acne, R10.2 - Pelvic and perineal pain, Z91.09 - Other allergy status, other than to drugs and biological substances Medications: Refilled fluticasone propionate 50 mcg/actuation (Flonase Allergy Relief) administer into each nostril 1 spray intranasal DAILY 3 months 3 inhalers 0RF
== END 2024-04-28 15:44 | disposition home or self-care (01) ==
PROVIDERS: PCP Internal Medicine; Visit Provider Internal Medicine
DX: Z00.00 Encounter for general adult medical examination without abnormal findings (principal); L70.8 Other acne; E66.09 Other obesity due to excess calories; Z68.32 Body mass index [BMI] 32.0-32.9, adult; Z91.09 Other allergy status, other than to drugs and biological substances; R10.2 Pelvic and perineal pain

== ENCOUNTER → 2024-04-28 15:23 | Outpatient (BNVA) | payer OTHER, SELFPAY | PROVIDERS: PCP Internal Medicine; Visit Provider Internal Medicine | DX: Z00.01 Encounter for general adult medical examination with abnormal findings (principal); L70.8 Other acne; R10.2 Pelvic and perineal pain; E66.09 Other obesity due to excess calories; Z68.32 Body mass index [BMI] 32.0-32.9, adult; Z71.3 Dietary counseling and surveillance; Z91.09 Other allergy status, other than to drugs and biological substances | CPT/HCPCS: 96127; 99212; 99395 ==

== ENCOUNTER 2024-07-29 09:20 | Outpatient (AMB) | payer OTHER, SELFPAY ==
--- NOTE | 2024-07-29 09:22 | A.OFFVIS_ITS ---
Vital Signs 07/29/24 09:29 Height 5 ft 4 in Weight 193 lb BMI 33.1 BP 124/82 Intake Visit Reasons: Ultrasound follow up/Annual/DO NOT RS X2 Chemical Economist: Chemical Economist Present (Leann) Accompanied by: Self / Same As Patient Allergies No Known Allergies Allergy (Verified 07/29/24 09:27) Is last menstrual period known: Yes Last menstrual period: 05/28/24 Post menopausal: No Patient : No HPI Comments Details: Presenting for annual exam . The patient is doing well, her pelvic pain has resolved. The patient has complaining of decreased sexual drive since was sta rted on continuous control pills and would like to discuss different options of control. Pelvic ultrasound done in 01/29 which showed the following: IMPRESSION: Normal pelvic ultrasound. Last Pap smear 02/26 was negative [facility] Medical History Head congestion Encounter for control pills maintenance Acne cosmetica Surgical History History of eye surgery Family History Father Unknown family medical history Mother Medical history non-contributory Unknown family medical history Maternal Grandfather No problems noted. Maternal Grandmother Unknown family medical history Paternal Grandfather Medical history non-contributory Paternal Grandmother Medical history non-contributory Sister No problems noted. 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 Sexual orientation: Straight/Heterosexual Gender identity: Female Cognitive needs: No Hearing needs: No Vision needs: Yes Female Reproductive History Menstrual Age of Menarche: 10 Duration of menses: 3-5 days Date of last menstrual period: 05/28/24 control method: pills Total pregnancies: 0 Date of last pap smear: 02/17/21 (negative pap smear) History of abnormal pap smear: No Review of Systems Const All systems reviewed & are unremarkable except as noted in HPI and below Card Reports as per HPI Resp Reports as per HPI GI Reports as per HPI and Reports no additional complaints Reports as per HPI Physical Exam Const General: cooperative, healthy appearing and comfortable Chest Chest palpation & inspection: normal inspection of the chest and normal palpation of entire chest wall Breast/axilla inspection: normal inspection of the breasts and normal inspection of the axillae Breast/axilla palpation: normal palpation of the breasts, normal palpation of the axillae and no axillary lymphadenopathy Resp Effort & Inspection: normal respiratory effort Auscultation: clear to auscultation bilaterally Percussion: percussion normal Cardio Palpation: normal PMI Rate: regular rate Rhythm: regular rhythm Heart sounds: no murmurs and no rubs Peripheral pulses: Peripheral pulses 2+ throughout GI Inspection: Yes normal to inspection Palpation (GI): Soft to palpation, nontender, no guarding, not rigid and No hepatosplenomegaly present Percussion: Yes normal to percussion Auscultation: normal bowel sounds Rectal Exam - Female: deferred General: Yes bladder normal to palpation External Female Exam: No lesion Speculum Exam - Vagina: normal appearance of the vagina, normal palpation, normal vaginal discharge and not erythematous Speculum Exam - Cervix: normal appearance of the cervix and normal palpation Bimanual exam- vagina & uterus: normal bimanual exam, normal palpation, uterine size normal, bladder normal to palpation, consistency normal and normal palpation Bimanual Exam- Adnexa, other: normal adnexae, no masses and no tenderness Assessment & Plan Assessment & Plan (1) Well woman exam: Code(s): Z01.419 - Encounter for gynecological examination (general) (routine) without abnormal findings Category: Medical Plan: Pap smear taken. GC/CT taken Counseled the patient about the recommended dietary allowance of 1000 mg of Calcium & 600 IU of vitamin D. The patient was instructed to perform monthly self-breast exams and to schedule an annual exam in a year; All questions answered and the patient verbalized understanding. Instructed the patient to schedule annual exam in a year (2) Female pelvic pain: Comment: Resolved Code(s): R10.2 - Pelvic and perineal pain Category: Medical Plan: Instructions given the patient to call in case her pelvic pain recurs. (3) Family planning: Code(s): Z30.09 - Encounter for other general counseling and advice on contraception Category: Social Hx Plan: Discussed with the patient the different options of control including control pills/Nuvaring, DMPA, different types of IUD ?s, sterilization. All the pros, cons, risks and benefits of each were discussed with the patient. The patient decided to go ahead with an IUD, so a more detailed discussion was carried on including types (Progesterone, Copper), mechanism of action, risks (infection, uterine perforation, failure with ectopic , septic AB, dysmenorrhea with Paraguard, others) benefits (efficient contraceptive method, hypo menorrhea with Progesterone IUD, others) GC/CG were taken and the patient was asked to call day one of next cycle for IUD insertion. Coding Level of Care Code Est Pt Prev Care 18-39y(78044) Diagnoses Well woman exam Z01.419 Female pelvic pain R10.2 Family planning Z30.09
[2024-07-29 09:29] VITALS: BP 124/82; BMI 33.1
--- OUTSIDE RECORDS SUMMARY | 2024-07-29 10:16 | XMS_ITS | Encounter Summary ---
Author Organization [facility] Address [address] [place] [address] Phone Care Team Providers Care Television Cable Installer Name Role Phone Marcelle Baca DO Primary Care Provider [phone] Reason for Visit * Reason Comments Med Refill Encounter Details Date Type Department Care Team (Late st Contact Info) Description 01/27/2018 Refill [facility] - [address] [address] Marcelle Baca DO [address] [place], [place] [id number] Acne vulgaris Social History Tobacco Use Types Packs/Day Years Used Date Smoking Tobacco: Never Smokeless Tobacco: Never Comments:Never smoker Alcohol Use Standard Drinks/Week Comments No 0 (1 standard drink = 0.6 oz pur e alcohol) Comments Unknown Sex and Gender Information Value Date Recorded Sex Assigned at Not on file Legal Sex Female 5:24 PM EDT Gender Identity Not on file Sexual Orientation Not on file documented as of this encounter Miscellaneous Notes * Telephone Encounter - Laurie Olvera LPN - 01/27/2018 11:15 AM EDT Refill request for Spironolactone. Last PE 09/25/17/SHALINI documented in this encounter Plan of Treatment Not on file documented as of this encounter Visit Diagnoses Diagnosis Acne vulgaris Other acne documented in this encounter Care Teams Television Cable Installer Relationship Specialty Start Date End Date Marcelle Baca DO [address] [place] [address] PCP - General 11/16/16 07/15/22 documented as of this encounter
--- OUTSIDE RECORDS SUMMARY | 2024-07-29 10:16 | XMS_ITS | Encounter Summary ---
Author Organization [facility] Address [address] [place] [address] Phone Care Team Providers Care Material Control Supervisor Name Role Phone Marcelle Baca DO Primary Care Provider [phone] Reason for Visit * Reason Comments Med Refill Encounter Details Date Type Department Care Team (Late st Contact Info) Description 01/06/2018 Refill [facility] [place] [address] [place] [address] Elise Acosta MD Acne vulgaris Social History Tobacco Use Types [...] encounter Miscellaneous Notes * Telephone Encounter - Genevieve Peace MA - 01/06/2018 6:22 PM EDT PE current. Refill request for Retin-A . Message to PC for refill. documented in this encounter Plan of Treatment Not on file documented as of this encounter Visit Diagnoses Diagnosis Acne vulgaris Other acne documented in this encounter Care Teams Material Control Supervisor Relationship Specialty Start Date End Date Marcelle Baca DO [address] [place] [address] PCP - General 11/16/16 07/15/22 documented as of this encounter
--- OUTSIDE RECORDS SUMMARY | 2024-07-29 10:16 | XMS_ITS | Encounter Summary ---
Author Organization [facility] Address [address] [place] [address] Phone Care Team Providers Care Graduate Assistant Athletic Trainer Name Role Phone Marcelle Baca DO Primary Care Provider [phone] Reason for Visit * Reason Comments Med Refill Encounter Details Date Type Department Care Team (Late st Contact Info) Description 10/31/2019 Refill [facility] [place] [address] [place] [address] Marcelle Baca DO [address] [place] [address] Acne vulgaris Social History Tobacco Use Types Packs/Day Years Used Date Smoking Tobacco: Never Smokeless Tobacco: Never Comments:Never smoker Alcohol Use Standard Drinks/Week Comments No 0 (1 standard drink = 0.6 oz pur e alcohol) Hunger/Food Answer Date Recorded No 10/05/2018 Stable Housing Answer Date Recorded No 04/11/2019 Transportation Concerns Answer Date Rec orded No 10/05/2018 Hazards in Home Answer Date Recorded No 10/05/2018 Financing Utilities Answer Date Recorde d No 10/05/2018 Safety at Home Answer Date Recorded No 10/05/2018 Outside Support Answer Date Recorded No 10/05/2018 Understanding Health Concerns Answer Da te Recorded No 10/05/2018 Financing Health Concerns Answer Date R ecorded No 10/05/2018 Missing School or Work Answer Date Vincent rded No 10/05/2018 Comments No Sex and Gender Information Value Date Recorded Sex Assigned at Not on file Legal Sex Female 5:24 PM EDT Gender Identity Not on file Sexual Orientation Not on file documented as of this encounter Plan of Treatment Not on file documented as of this encounter Visit Diagnoses Diagnosis Acne vulgaris Other acne documented in this encounter Care Teams Graduate Assistant Athletic Trainer Relationship Specialty Start Date End Date Marcelle Baca DO [address] [place] [address] [place] [address] PCP - General 11/16/16 07/15/22 documented as of this encounter
--- OUTSIDE RECORDS SUMMARY | 2024-07-29 10:16 | XMS_ITS | Clinical Summary ---
Author Organization [facility] Address [address] [place] [id number] Care Team Providers Care Catering Sous Chef Name Role Phone Unavailable Primary Care Provider Unavailabl e Social History Tobacco Use Types Packs/Day Years Used Date Smoking Tobacco: Never Assessed Comments Unknown Sex and Gender Information Value Date Recorded Sex Assigned at Not on file Legal Sex Female 8:30 PM EST Gender Identity Not on file Sexual Orientation Not on file Plan of Treatment Health Maintenance Due Date Last Done Comments Gonorrhea/Chlamydia Screening 1999 HPV Vaccines (1 - 3-dose series) 12/11/2014 DTaP,Tdap,and Td Vaccines (1 - Tdap) 12/11/2018 Hepatitis B Vaccines (1 of 3 - 19+ 3-dose series) 12/11/2018 Cervical Cancer Screening: P ap Smear 12/11/2020 Depression Screening 05/03/2023 HIV Screening 05/03/2023 Hepatitis C Screening 05/03/2023 Social Influencers of Health Screening 05/03/2023 COVID-19 Vaccine ( - 2023-2 5 season) 2023 Influenza Vaccine (Season Ended) 2024 HIB Vaccines Aged Out No longer eligi ble based on patient's age to complete this topic Hepatitis A Vaccines Aged Out No long er eligible based on patient's age to complete this topic IPV Vaccines Aged Out No longer eligi ble based on patient's age to complete this topic MMR Vaccines Aged Out No longer eligi ble based on patient's age to complete this topic Meningococcal ACWY Vaccine Aged Out N o longer eligible based on patient's age to complete this topic Meningococcal B Vaccine Aged Out No l onger eligible based on patient's age to complete this topic Pneumococcal Vaccine: Pediat rics (0 to 5 Years) and At-Risk Patients (6 to 64 Years) Aged Out No longer eligible b ased on patient's age to complete this topic RSV Immunization Patients Un sloan 20 months Aged Out No longer eligible b ased on patient's age to complete this topic Varicella Vaccines Aged Out No longer eligible based on patient's age to complete this topic
--- OUTSIDE RECORDS SUMMARY | 2024-07-29 10:16 | XMS_ITS | Clinical Summary ---
Author Organization [facility] Address [address] [place] [address] Phone Care Team Providers Care Penciller Name Role Phone Unavailable Primary Care Provider Unavailabl e Allergies No known active allergies Medications HYDROCORTISONE 2.5 % ointmentIndication s:Allergic contact dermatitis, unspecified trigger APPLY TOPICALLY TWICE A DAY NEEDED TO RASH 20 g 1 8 Active RETIN-A 0.025 % creamIndications:A cne vulgaris APPLY TO AFFECTED AREA EVERY DAY 20 g 3 8 Active spironolactone 100 MG tabletIndications: Acne vulgaris Take 1 tablet (100 mg total) by mouth 2 (two) times a day. 60 tablet 11 9 Active triamcinolone 0.1 % creamIndications:I ntrinsic eczema Apply topically 2 (two) times a day. 30 g 1 9 Active norgestimate-ethin yl estradiol (Sprintec 28) 0.25-35 MG-MCG per tabletIndications: Encounter for surveillance of contraceptives, unspecified contraceptive Take 1 tablet by mouth once daily. 84 tablet 0 Active Active Problems Problem Noted Date Diagnosed Date Acne vulgaris 01/02/2017 Overview (01/02/2017): Saw Eva Porter in [facility] derm clinic- she can take spironolactone 100mg BID long-term(unless she gets ) Assessment & Plan (10/05/2018 9:37 AM EDT): RFed spironolactone- reviewed per Derm that she can take this long-term however is C/I; she is on OCP Assessment & Plan (09/25/2017 3:19 PM EDT): Doing great on spironolactone Assessment & Plan (03/06/2017 8:20 PM EST): Your response to tretinoin cream qhs, OCPs and spironolactone is excellent and I don't think these products have caused this rash today so you can continue this acne regimen. Menstrual disorder 04/10/2013 Overview (10/05/2018): sprintec- doing great Assessment & Plan (10/05/2018 9:36 AM EDT): On sprintec- doing great Assessment & Plan (09/25/2017 3:18 PM EDT): Will try sprintec; screen sent Immunizations Immunization Administration Dates Next Due DTaP 5 12/24/2003, 2,06/19/2000, 001,02/12/2000 HPV, Quadrivalent 02/04/2013,03/10/2012,01/25/20 11 Hep A, ped/adol 07/11/2015,06/11/2014 Hep B, ped/adol 06/19/2000,01/12/2000,1999 Hib (PRP-T) 03/25/2001, 1,04/17/2000, 000 IPV 12/24/2003, 2,04/17/2000, 000 MMR 12/24/2003,12/23/2000 Meningococcal Conj (Menactra) MCV4P 07/09/2016,1 Pneumococcal Conjugate 03/25/2001,2000,04/17/2000, 000 Tdap 01/24/2011 Varicella 03/10/2012,12/23/2000 Family History Medical History Relation Name Comments No Known Problems Father No Known Problems Mother No Known Problems Sister Relation Name Status Comments Father Alive Father: Alive a nd well Mother Alive Mother: Alive a nd well Sister Alive Sister: Alive a nd well Social History Tobacco Use Types Packs/Day Years Used Date Smoking Tobacco: Never Smokeless Tobacco: Never Tobacco Cessation:Counseling Given: Yes Comments:Never smoker Alcohol Use Standard Drinks/Week Comments [...] on file Sexual Orientation Not on file Last Filed Vital Signs Vital Sign Reading Time Taken Comments Blood Pressure 120/78 10/05/2018 9:01 AM EDT Pulse 91 10/05/2018 9:01 AM EDT Temperature 37 ??C (98.6 ??F) 2017 5:06 PM EDT Respiratory Rate - - Oxygen Saturation 96% 11/07/2011 12:00 AM EDT Inhaled Oxygen Concentration - - Weight 81.5 kg (179 lb 9.6 oz) 10/05/2018 9:01 A M EDT Height 160.7 cm (5' 3.25 ) 10/05/2018 9:01 AM ED T Body Mass Index 31.56 10/05/2018 9:01 AM EDT Plan of Treatment Health Maintenance Due Date Last Done Comments DTaP,Tdap,and Td Vaccines (7 - Td or Tdap) 01/24/2021 01/24/2011, 12/24/2003, 06/23/2001, Additional history exists Influenza Vaccines (#1) 2023 COVID-19 Vaccine ( season) 2023 Hepatitis B Vaccines Completed 06/19/2000, 01/12/2000, 1999 HIB Vaccines Completed 03/25/2001, 06/06, 04/17/2000, Additional history exists Pneumococcal Vaccine Completed 03/25/2001, 06/19/2000, 04/17/2000, Additional history exists IPV Vaccines Completed 12/24/2003, 06/06, 04/17/2000, Additional history exists MMR Vaccines Completed 12/24/2003, 12/23/2000 Varicella Vaccines Completed 03/10/2012, 12/23/2000 HPV Vaccines Completed 02/04/2013, 12/06/2011, 01/24/2011 Hepatitis A Vaccines Completed 07/11/2015, 06/12/19 15 Meningococcal Vaccine Completed 07/09/2016, 011 Men B Vaccine Aged Out No longer elig ible based on patient's age to complete this topic Procedures * Due to [place] [employer] law, this organization might not be sharing sensitive test results. Procedure Name Priority Date/Time Associated Diagnosis Comments CHLAMYDIA AND GONORRHEA, AMPLIFIED Routine 10/05/2018 9:38 AM EDT Screening examination for bacterial and spirochetal disease from Last 3 Months or Most Recently Relevant to Health Maintenance Results * Due to [facility] law, this organization might not be sharing sensitive test results. * Chlamydia and Gonorrhoea, Amplified (10/05/2018 9:38 AM EDT) Chlamydia Trachomatis, DNA Probe NEGATIVE (NEG) [facility] Comment: No Chlamydia Trachomatis RNA detected in this patient's sample ? (REFERENCE RANGE/NORMAL VALUE: NOT DETECTED) ? Note: This test uses college instructor- mediated amplification method to detect rRNA from C. Trachomatis URINE GC AMP PROBE NEGATIVE (NEG) [facility] Comment: No Neisseria Gonorrhoeae RNA detected in this patient's sample ? (REFERENCE RANGE/NORMAL VALUE: NOT DETECTED) ? NOTE: This test uses college instructor-mediated amplification method to detect rRNA from N.Gonorrhoeae. A negative result does not preclude infection. In the case of a negative urine result, testing of an endocervical(female) or urethral (male) specimen is recommended if there is high clinical suspicion of infection. Due to very high sensitivity of Nucleic Acid Amplification Test, false positive results may occur. Therefore, specimen handling is extremely important. In patients in whom the disease is unlikely, additional sample for testing should be considered after an initial positive result. The performance characteristics of this test have not been evaluated in children. The Aptima Combo2 assay is not intended for the evaluation of suspected sexual abuse or for other medico-legal indications. The ordering provider should assess if the patient had consensual sex without risk of sexual abuse. Consult the [facility] if needed. Contact phone number . Therapeutic failure or success cannot be determined with the Aptima Combo2 assay since nucleic acid may persist following appropriate antimicrobial therapy. The Centers for Disease Control and Prevention (CDC) recommends confirmatory retesting using culture or a different nucleic acid amplification test when positive results occur, if indicated. Testing performed or reported by [facility], a Service of [facility], [address] [place] [address] Urine 10/05/2018 9:38 AM EDT 10/05/2018 3:10 PM EDT Marcelle Baca DO LAB MICROBIOLOGY - GENERAL ORDER STEFFANIE Final Result [facility] from Last 3 Months or Most Recently Relevant to Health Maintenance [facility] [employer] NON [facility]
--- OUTSIDE RECORDS SUMMARY | 2024-07-29 10:16 | XMS_ITS | Encounter Summary ---
Author Organization [facility] Address [address] [place] [address] Phone Care Team Providers Care Environmental Field Team Member Name Role Phone Marcelle Baca DO Primary Care Provider [phone] Encounter Details Date Type Department Care Team (Late st Contact Info) Description 11/22/2016 Conversion Encounter [facility] [place] [address] [place] [address] Social History Tobacco Use Types Packs/Day Years Used Date Smoking Tobacco: Never Comments:Never smoker Comments Unknown Sex and Gender Information Value Date Recorded Sex Assigned at Not on file Legal Sex Female 5:24 PM EDT Gender Identity Not on file Sexual Orientation Not on file documented as of this encounter Plan of Treatment Not on file documented as of this encounter Visit Diagnoses Not on filedocumented in this encounter Care Teams Environmental Field Team Member Relationship Specialty Start Date End Date Marcelle Bcaa DO [address] [place] [address] PCP - General 11/16/16 07/15/22 documented as of this encounter
--- OUTSIDE RECORDS SUMMARY | 2024-07-29 10:16 | XMS_ITS | Clinical Summary ---
Author Organization [facility] [email or web address] [facility] Address [address] [facility] [place] [address] Care Team Providers Care Bakery Team Leader Name Role Phone Unavailable Primary Care Provider Unavailabl e Social History Tobacco Use Types Packs/Day Years Used Date Smoking Tobacco: Never Assessed Comments Unknown Sex and Gender Information Value Date Recorded Sex Assigned at Not on file Legal Sex Female 12:48 PM EDT Gender Identity Not on file Sexual Orientation Not on file Plan of Treatment Health Maintenance Due Date Last Done Comments Depression: Screening Annual ly using PHQ-2/9 in Adults 18 yrs or above (or HM Modifier)([facility]) 1999 Hepatitis C Virus Infection in Adolescents and Adults: Screening (or Modifier) ([facility]) 12/11/2017 SDOH Screening Reminder: Adriana casperllloren for all adults ([facility]) 12/11/2017 Tobacco Smoking Cessation: i n Adults excluding Women: Behavioral and Pharmacotherapy Interventions ([facility]) 12/11/2017 DTaP/Tdap/Td Vaccines ([facility]) (1 - Tdap) 12/11/2018 Lipid Screening: Once for Wo men aged 20 to 45 yrs ([facility]) 2019 Cervical Cancer Screenin 1-65 yrs of age (or Modifier) 12/11/2020 Cervical Cancer Screening: P ap every 3 yrs pts age 21-65 12/11/2020 Cervical Cancer: Pap Screeni ng with Modifier timing ([facility]) 12/11/2020 Cervical Cancer: hrHPV alone or with cotesting Pap for Pts 30-65yrs screening every 5yrs ([facility]) 12/11/2020 Flu Vaccination: Yearly for ages 18mos through 64 years (or Modifier)([facility]) 11/07/2023 COVID-19 Vaccine Screening: Initial Series and Booster Status ([facility]) (2023- season) 2023 Zoster/Shingles Vaccine Seri es Screening: Adults aged 18+ yrs (or HM Modifiers)([facility]) (1 of 2) 12/11/2049 Pneumococcal Vaccination Scr eening: Pts 0-19 & 19-49 yrs of age ([facility]) Aged Out No longer eligible based on patient's age to complete this topic Medical Devices Not on file Insurance [facility] [employer]
--- OUTSIDE RECORDS SUMMARY | 2024-07-29 10:16 | XMS_ITS | Encounter Summary ---
Author Organization [facility] Address [address] [place] [address] Phone Care Team Providers Care Machine Shop Supervisor Name Role Phone Marcelle Baca DO Primary Care Provider [phone] Reason for Visit * Reason Comments Med Refill Encounter Details Date Type Department Care Team (Late st Contact Info) Description 02/13/2020 Refill [facility] [place] [address] [place] [address] Marcelle Baca DO [address] [place] [address] Encounter for surveillance of contraceptives, unspecified contraceptive Social History Tobacco Use Types Packs/Day Years [...] as of this encounter Visit Diagnoses Diagnosis Encounter for surveillance of contraceptives, unspecified contraceptive documented in this encounter Care Teams Machine Shop Supervisor Relationship Specialty Start Date End Date Marcelle Baca DO [address] [facility] [place] [address] PCP - General 11/16/16 07/15/22 documented as of this encounter
--- OUTSIDE RECORDS SUMMARY | 2024-07-29 10:16 | XMS_ITS | Encounter Summary ---
Author Organization [facility] Address [address] [place] [address] Phone Care Team Providers Care Cattle Farmer Name Role Phone Marcelle Baca DO Primary Care Provider [phone] Encounter Details Date Type Department Care Team (Late st Contact Info) Description 11/08/2011 Documentation EM Family Medicine [address] [place] [address] Family Medicine, Physician [address] [place], [place] [id number] Social History Tobacco Use Types Packs/Day Years [...] on filedocumented in this encounter Care Teams Cattle Farmer Relationship Specialty Start Date End Date Marcelle Baca DO [address] [place] [address] PCP - General 11/16/16 07/15/22 documented as of this encounter
== END 2024-07-29 09:49 | disposition home or self-care (01) ==
LOC: HO.HWS 09:21
PROVIDERS: PCP Internal Medicine; Visit Provider Obstetrics & Gynecology
DX: Z01.419 Encounter for gynecological examination (general) (routine) without abnormal findings (principal); Z30.09 Encounter for other general counseling and advice on contraception
CPT/HCPCS: 99395; 99459

== ENCOUNTER 2024-07-29 09:20 | Outpatient (REF) | payer OTHER, SELFPAY ==
--- OUTSIDE RECORDS SUMMARY | 2024-07-29 13:41 | XMS_ITS | Clinical Summary ---
Author Organization [facility] Address [address] [place] [address] Phone Care Team Providers Care Director Of Enterprise Applications Name Role Phone Unavailable Primary Care Provider [...] 01/02/2017 Overview (01/02/2017): Saw Eva Porter in [facility] derm clinic- she can take [...] complete this topic Procedures * Due to [place] [employer] law, this organization might not be sharing sensitive test results. Procedure Name Priority Date/Time Associated Diagnosis Comments CHLAMYDIA AND GONORRHEA, AMPLIFIED Routine 10/05/2018 9:38 AM EDT Screening examination for bacterial and spirochetal disease from Last 3 Months or Most Recently Relevant to Health Maintenance Results * Due to [facility] law, this organization might not be sharing sensitive test results. * Chlamydia and Gonorrhoea, Amplified (10/05/2018 9:38 AM EDT) Chlamydia Trachomatis, DNA Probe NEGATIVE (NEG) [facility] Comment: No Chlamydia Trachomatis RNA detected in this patient's sample ? (REFERENCE RANGE/NORMAL VALUE: NOT DETECTED) ? Note: This test uses respiratory services manager- mediated amplification method to detect rRNA from C. Trachomatis URINE GC AMP PROBE NEGATIVE (NEG) [facility] Comment: No Neisseria Gonorrhoeae RNA detected in this patient's sample ? (REFERENCE RANGE/NORMAL VALUE: NOT DETECTED) ? NOTE: This test uses respiratory services manager-mediated amplification method to detect rRNA from N.Gonorrhoeae. [...] without risk of sexual abuse. Consult the [facility] if needed. Contact phone number . Therapeutic failure or success cannot be determined with the Aptima Combo2 assay since nucleic acid may persist following appropriate antimicrobial therapy. The Centers for Disease Control and Prevention (CDC) recommends confirmatory retesting using culture or a different nucleic acid amplification test when positive results occur, if indicated. Testing performed or reported by [facility], a Service of [facility], [address] [place] [address] Urine 10/05/2018 9:38 AM EDT 10/05/2018 3:10 PM EDT Marcelle Baca DO LAB MICROBIOLOGY - GENERAL ORDER STEFFANIE Final Result [facility] from Last 3 Months or Most Recently Relevant to Health Maintenance [facility]
--- OUTSIDE RECORDS SUMMARY | 2024-07-29 13:41 | XMS_ITS | Encounter Summary ---
Author Organization [facility] Address [address] [place] [address] Phone Care Team Providers Care Reflesher Name Role Phone Marcelle Baca DO Primary Care Provider Encounter Details Date Type Department Care Team (Late st Contact Info) Description 11/08/2011 Documentation EM Family Medicine [address] [place] [address] Family Medicine, Physician [address] [place], [place] [id number] Social History Tobacco Use Types Packs/Day Years [...] on filedocumented in this encounter Care Teams Reflesher Relationship Specialty Start Date End Date Marcelle Baca DO [address] [place] [address] PCP - General 11/16/16 07/15/22 documented as of this encounter
--- OUTSIDE RECORDS SUMMARY | 2024-07-29 13:41 | XMS_ITS | Clinical Summary ---
Author Organization [facility] [employer] [facility] Address [address] [facility] [place] [address] Care Team Providers Care Optimization Consultant Name Role Phone Unavailable Primary Care Provider [...] Adults 18 yrs or above (or HM Modifier)([facility]) 1999 Hepatitis C Virus Infection in Adolescents and Adults: Screening (or Modifier) ([facility]) 12/11/2017 SDOH Screening Reminder: Adriana casperllloren for all adults ([facility]) 12/11/2017 Tobacco Smoking Cessation: i n Adults excluding Women: Behavioral and Pharmacotherapy Interventions ([facility]) 12/11/2017 DTaP/Tdap/Td Vaccines ([facility]) (1 - Tdap) 12/11/2018 Lipid Screening: Once for Wo men aged 20 to 45 yrs ([facility]) 2019 Cervical Cancer Screenin 1-65 yrs of age (or Modifier) 12/11/2020 Cervical Cancer Screening: P ap every 3 yrs pts age 21-65 12/11/2020 Cervical Cancer: Pap Screeni ng with Modifier timing ([facility]) 12/11/2020 Cervical Cancer: hrHPV alone or with cotesting Pap for Pts 30-65yrs screening every 5yrs ([facility]) 12/11/2020 Flu Vaccination: Yearly for ages 18mos through 64 years (or Modifier)([facility]) 11/07/2023 COVID-19 Vaccine Screening: Initial Series and Booster Status ([facility]) (2023- season) 2023 Zoster/Shingles Vaccine Seri es Screening: Adults aged 18+ yrs (or HM Modifiers)([facility]) (1 of 2) 12/11/2049 Pneumococcal Vaccination Scr eening: Pts 0-19 & 19-49 yrs of age ([facility]) Aged Out No longer eligible based on patient's age to complete this topic Medical Devices Not on file Insurance [facility] [employer]
--- OUTSIDE RECORDS SUMMARY | 2024-07-29 13:41 | XMS_ITS | Encounter Summary ---
Author Organization [facility] Address [address] [place] [address] Phone Care Team Providers Care Shell Trim Operator Name Role Phone Marcelle Baca DO Primary Care Provider [phone] Reason for Visit * Reason Comments Med Refill Encounter Details Date Type Department Care Team (Late st Contact Info) Description 01/06/2018 Refill [facility] [place] [address] [place] [address] Elise Acosta MD Acne vulgaris Social History [...] acne documented in this encounter Care Teams Shell Trim Operator Relationship Specialty Start Date End Date Marcelle Baca DO [address] [place] [address] PCP - General 11/16/16 07/15/22 documented as of this encounter
--- OUTSIDE RECORDS SUMMARY | 2024-07-29 13:41 | XMS_ITS | Encounter Summary ---
Author Organization [facility] Address [address] [place] [address] Phone Care Team Providers Care Community Administrator Name Role Phone Marcelle Baca DO Primary Care Provider [phone] Reason for Visit * Reason Comments Med Refill Encounter Details Date Type Department Care Team (Late st Contact Info) Description 10/31/2019 Refill [facility] [place] [address] [place] [address] Marcelle Baca DO [address] [place] [address] Acne vulgaris Social History Tobacco Use Types [...] acne documented in this encounter Care Teams Community Administrator Relationship Specialty Start Date End Date Marcelle Baca DO [address] [place] [address] [place] [address] PCP - General 11/16/16 07/15/22 documented as of this encounter
--- OUTSIDE RECORDS SUMMARY | 2024-07-29 13:41 | XMS_ITS | Encounter Summary ---
Author Organization [facility] Address [address] [place] [address] Phone Care Team Providers Care Microbiological Lab Technician Name Role Phone Marcelle Baca DO Primary Care Provider [phone] Reason for Visit * Reason Comments Med Refill Encounter Details Date Type Department Care Team (Late st Contact Info) Description 02/13/2020 Ref[place] [facility] [place] [address] [place] [address] Marcelle Baca DO [address] [place] [address] Encounter for surveillance of contraceptives, unspecified contraceptive [...] contraceptive documented in this encounter Care Teams Microbiological Lab Technician Relationship Specialty Start Date End Date Marcelle Baca DO [address] [facility] [place] [address] PCP - General 11/16/16 07/15/22 documented as of this encounter
--- OUTSIDE RECORDS SUMMARY | 2024-07-29 13:41 | XMS_ITS | Clinical Summary ---
Author Organization [facility] ity Address [id number] [place] [id number] Care Team Providers Care Junior Electrical Engineer Name Role Phone Unavailable Primary Care Provider [...]
--- OUTSIDE RECORDS SUMMARY | 2024-07-29 13:41 | XMS_ITS | Encounter Summary ---
Author Organization [facility] Address [address] [place] [address] Phone Care Team Providers Care Lumber Tailer Name Role Phone Marcelle Baca DO Primary Care Provider [phone] Reason for Visit * Reason Comments Med Refill Encounter Details Date Type Department Care Team (Late st Contact Info) Description 01/27/2018 Refill [facility] - [address] [address] Marcelle Baca DO [address] [place], [place] [phone] Acne vulgaris Social History Tobacco Use Types [...] acne documented in this encounter Care Teams Lumber Tailer Relationship Specialty Start Date End Date Marcelle Baca DO [address] [place] [address] PCP - General 11/16/16 07/15/22 documented as of this encounter
--- OUTSIDE RECORDS SUMMARY | 2024-07-29 13:41 | XMS_ITS | Encounter Summary ---
Author Organization [facility] Address [address] [place] [address] Phone Care Team Providers Care Monkey Trainer Name Role Phone Marcelle Baca DO Primary Care Provider [phone] Encounter Details Date Type Department Care Team (Late st Contact Info) Description 11/22/2016 Conversion Encounter [facility] [place] [address] [place] [address] Social History Tobacco Use Types Packs/Day Years [...] on filedocumented in this encounter Care Teams Monkey Trainer Relationship Specialty Start Date End Date Marcelle Baca DO [address] [place] [address] PCP - General 11/16/16 07/15/22 documented as of this encounter
[2024-07-29 22:35] LABS: CT PCR NOT DETECTED (Not Detect.); NG PCR NOT DETECTED (Not Detect.)
== END 2024-07-29 09:21 | disposition home or self-care (01) ==
LOC: HO.LNP 09:20
PROVIDERS: PCP Internal Medicine; Visit Provider Obstetrics & Gynecology
DX: Z01.419 Encounter for gynecological examination (general) (routine) without abnormal findings (principal); N93.9 Abnormal uterine and vaginal bleeding, unspecified
CPT/HCPCS: 87491; 87591; 88175; 99395; 99459

== ENCOUNTER 2024-08-27 15:11 | Outpatient (AMB) | payer OTHER, SELFPAY ==
--- NOTE | 2024-08-27 15:12 | MHC.OFFVIS ---
Vital Signs 08/27/24 15:35 Height 5 ft 4 in Weight 193 lb BMI 33.1 Intake Visit Reasons: Mirena insertion Perioperative Nurse Required: No Information Interpreted: non-clinical & clinical Welder Plasma Arc: Welder Plasma Arc Present (Lea DEWEY) Accompanied by: Self / Same As Patient Allergies No Known Allergies Allergy (Verified 08/27/24 15:35) Is last menstrual period known: Yes Last menstrual period: 08/27/24 HPI Comments Details: Presenting for Mirena IUD insertion [facility] Medical History Head congestion Encounter for control pills maintenance Acne cosmetica Surgical History History of eye surgery Family History Father Unknown family medical history Mother Medical history non-contributory Unknown family medical history Maternal Grandfather No problems noted. Maternal Grandmother Unknown family medical history Paternal Grandfather Medical history non-contributory Paternal Grandmother Medical history non-contributory Sister No problems noted. 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 Sexual orientation: Straight/Heterosexual Gender identity: Female Cognitive needs: No Hearing needs: No Vision needs: Yes Female Reproductive History Menstrual Age of Menarche: 10 Date of last menstrual period: 08/27/24 Review of Systems Const All systems reviewed & are unremarkable except as noted in HPI and below Reports as per HPI and Reports no additional complaints GI Reports no additional complaints Reports no additional complaints Office Procedures IUD Insert/Removal Details Details: The patient is presenting for Mirena IUD insertion Urine test was done in the office and was negative; All the contraindications were excluded. The following possible complications were discussed with the patient: Intrauterine , Ectopic , Sepsis, Pelvic Infection, Irregular Bleeding and Amenorrhea, Perforation, Expulsion, Ovarian Cysts, Breast Cancer, The following adverse effects were discussed with the patient: alteration of menstrual bleeding pattern, including: unscheduled uterine bleeding decreased uterine bleeding increased scheduled uterine bleeding female genital tract bleeding ,amenorrhea , genital discharge , vulvovaginitis , breast pain , benign ovarian cyst and associated complications , dysmenorrhea , Gastrointestinal disorders abdominal/pelvic pain, headache/migraine , back pain , acne , depression Alternative options were discussed with the patient including but not limited: control pills, patch, NuvaRing, Depo-medroxyprogesterone acetate, Nexplanon, copper IUD, sterilization, vasectomy, others The procedure was explained in detail to patient , at the end patient signed the informed consent obtained. A no touch technique was used throughout the procedure. A speculum was placed into vagina and cervix was cleaned with betadine). A tenaculum was placed. A plastic sound was advanced through the external and internal os until it reached the fundus of the uterus, the depth was 8 cm. The sound was then withdrawn. The IUD was loaded in a sterile manner and advanced into position. The string was visualized and cut to 3 cm. Tenaculum site hemostatic. All instruments removed from vagina. Patient tolerated the procedure well. NO complications were noted. Patient was instructed to call for fever over 100.4, significant pain unrelieved by Motrin, IUD expulsion, heavy bleeding, or abnormal discharge. In addition, the following clinical considerations were discussed with the patient to call for removal: A stroke or heart attack ,Very severe or migraine headaches ,Unexplained fever ,Yellowing of the skin or whites of the eyes, as these may be signs of serious liver problems , or suspected , Pelvic pain or pain during sex ,HIV positive seroconversion in herself or her partner , Possible exposure to sexually transmitted infections Unusual vaginal discharge or genital sores , severe vaginal bleeding or bleeding that lasts a long time, or if she misses a menstrual period, Inability to feel Mirena's threads Counseled the patient that the IUD does not protect against STI's, recommended use of condoms for the first 7 days post insertion and explained to the patient that condoms are recommended for patients at risk for sexually transmitted infections. Informed the patient that Mirena IUD is FDA approved for 8 years for contraception for 5 years for the treatment of heavy menses Instructed the patient to schedule a Follow up appointment in 4 to 6 weeks following insertion. This note was generated with a voice recognition program. Some errors may have been overlooked during the review of this note. Sometimes these errors may affect the content or meaning of a given sentence. [id number] Insertion Procedure code (CPT) selection complete Office Meds Mirena 21 mcg/24 hr (up to 8 years) 52 mg intrauterine device Performing Provider: Nash Sena MD Performing Location: [facility] Documented (not given) by: Nash Sena MD on 08/27/24 15:36 Dose Route Admin Location Dispensed Lot Number Expiration Date NDC Geographic Information Systems Manager 1 device intrauterine ea Assessment & Plan Assessment & Plan (1) Encounter for insertion of Mirena IUD: Code(s): Z30.430 - Encounter for insertion of intrauterine contraceptive device Category: Medical Plan: UPT done in the office was negative. Mirena IUD inserted, see procedure note Orders: Orders AMB IUD Insertion/Removal - Practice Supplied Today Z30.430 - Encounter for insertion of intrauterine contraceptive device Medications: New Mirena (levonorgestrel) 1 device intrauterine ONCE 1 ea 0RF IUD insertion NS Z30.430 - Encounter for insertion of intrauterine contraceptive device Discontinued L norgest/e.estradiol-e.estrad 0.15 mg-30 mcg (84)/10 mcg (7) Discontinued Reason: Doctor's Order 1 tab PO DAILY 91 days 91 ea 3RF Coding Level of Care Code Procedure Only Diagnoses Encounter for insertion of Mirena IUD Z30.430 CPT Codes Details - CPT: 23600-DVF Insertion ([id number])
--- OUTSIDE RECORDS SUMMARY | 2024-08-27 15:14 | XMS_ITS | Encounter Summary ---
Author Organization [facility] Address [address] [place] [address] Phone Care Team Providers Care Brake Reliner Name Role Phone Marcelle Baca DO Primary Care Provider [phone] Reason for Visit * Reason Comments Med Refill Encounter Details Date Type Department Care Team (Late st Contact Info) Description 02/13/2020 Refill [facility] [place] [address] [place] [address] Marcelle Baca DO [address] [place] [address] Encounter for surveillance of contraceptives, unspecified contraceptive [...] contraceptive documented in this encounter Care Teams Brake Reliner Relationship Specialty Start Date End Date Marcelle Baca DO [address] [facility] [place] [address] PCP - General 11/16/16 07/15/22 documented as of this encounter
[2024-08-27 15:35] VITALS: BMI 33.1
== END 2024-08-27 15:51 | disposition home or self-care (01) ==
LOC: HO.HWS 15:11
PROVIDERS: PCP Internal Medicine; Visit Provider Obstetrics & Gynecology
DX: Z30.430 Encounter for insertion of intrauterine contraceptive device (principal); Z32.02 Encounter for pregnancy test, result negative
CPT/HCPCS: 58300

== ENCOUNTER → 2024-08-27 15:11 | Outpatient (BNVA) | payer OTHER, SELFPAY | PROVIDERS: PCP Internal Medicine; Visit Provider Obstetrics & Gynecology | DX: Z30.430 Encounter for insertion of intrauterine contraceptive device (principal) | CPT/HCPCS: 58300; 81025; J7298 ==

== ENCOUNTER 2024-09-29 13:26 | Outpatient (AMB) | payer OTHER, SELFPAY ==
--- NOTE | 2024-09-29 13:27 | A.OFFVIS_ITS ---
Vital Signs 09/29/24 13:30 Height 5 ft 4 in Weight 193 lb BMI 33.1 Intake Visit Reasons: Cramping with IUD Oral Hygienist Required: No Information Interpreted: non-clinical & clinical Employee Benefits Administrator: Employee Benefits Administrator Present (Lea DEWEY) Accompanied by: Self / Same As Patient Allergies No Known Allergies Allergy (Verified 09/29/24 13:31) HPI Comments Details: Presenting complaining of pelvic cramping over the last 10 days with prolonged vaginal bleeding, urinary frequency and dysuria, no other associated symptoms no fever or chills,. The patient had Mirena IUD inserted on 08/27/2024 [facility] Medical History Head congestion Encounter for control pills maintenance Acne cosmetica Surgical History History of eye surgery Family History Father Unknown family medical history Mother Medical history non-contributory Unknown family medical history Maternal Grandfather No problems noted. Maternal Grandmother Unknown family medical history Paternal Grandfather Medical history non-contributory Paternal Grandmother Medical history non-contributory Sister No problems noted. 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 Sexual orientation: Straight/Heterosexual Gender identity: Female Cognitive needs: No Hearing needs: No Vision needs: Yes Female Reproductive History Menstrual Age of Menarche: 10 Review of Systems Const All systems reviewed & are unremarkable except as noted in HPI and below Physical Exam General: Yes no CVA tenderness External Female Exam: normal external appearance and normal appearance of the urethra Speculum Exam - Vagina: normal appearance of the vagina, normal palpation, no lesions and no masses Speculum Exam - Cervix: normal appearance of the cervix, normal palpation, no lesions, no masses, nontender and Other cervical findings present (IUD string in place) Bimanual exam- vagina & uterus: normal bimanual exam, normal palpation, uterine size normal, normal palpation, uterine shape normal, No Cervical tenderness present and non-tender Bimanual Exam- Adnexa, other: normal adnexae Back/Spine/Pelvis Back: no CVA tenderness Assessment & Plan Assessment & Plan (1) Pelvic cramping: Comment: With Mirena IUD Code(s): R10.2 - Pelvic and perineal pain Category: Medical Plan: Urine test and urine dip was negative. GC/CT collected. Pelvic ultrasound ordered stat. Instructions given to patient to schedule a follow-up appointment within a week , to call or go to emergency room in case of fever above 100.4, nausea or vomiting, flank pain, persistence or worsening of pelvic pain/cramping Orders: Orders AMB Urinalysis Dipstick Today Z32.02 - Encounter for test, result negative AMB HCG Urine Test Today Z32.02 - Encounter for test, result negative Coding Level of Care Code Est Pt Level 3 (63827) Diagnoses Pelvic cramping R10.2
[2024-09-29 13:30] VITALS: BMI 33.1
--- OUTSIDE RECORDS SUMMARY | 2024-09-29 15:30 | XMS_ITS | Encounter Summary ---
Author Organization [facility] Address [address] [place] [address] Phone Care Team Providers Care Open Hearth Furnace Operator Name Role Phone Marcelle Baca DO Primary Care Provider [phone] Reason for Visit * Reason Comments Med Refill Encounter Details Date Type Department Care Team (Late st Contact Info) Description 02/13/2020 Refill [facility] [place] [address] [place] [address] Marcelle Baca DO [address] [place] [address] Encounter for surveillance of contraceptives, unspecified contraceptive [...] contraceptive documented in this encounter Care Teams Open Hearth Furnace Operator Relationship Specialty Start Date End Date Marcelle Baca DO [address] [facility] [place] [address] PCP - General 11/16/16 07/15/22 documented as of this encounter
== END 2024-09-29 13:46 | disposition home or self-care (01) ==
LOC: HO.HWS 13:26
PROVIDERS: PCP Internal Medicine; Visit Provider Obstetrics & Gynecology
DX: R10.2 Pelvic and perineal pain (principal); Z32.02 Encounter for pregnancy test, result negative
CPT/HCPCS: 99213

== ENCOUNTER 2024-09-29 13:46 | Outpatient (REF) | payer OTHER, SELFPAY ==
[2024-09-29 17:30] LABS: CT PCR NOT DETECTED (Not Detect.); NG PCR NOT DETECTED (Not Detect.)
== END 2024-09-29 13:47 | disposition home or self-care (01) ==
LOC: HO.LNP 13:46
PROVIDERS: Visit Provider Obstetrics & Gynecology
DX: Z13.89 Encounter for screening for other disorder (principal)
CPT/HCPCS: 87491; 87591

== ENCOUNTER 2024-09-29 14:53 | Outpatient (REF) | payer OTHER, SELFPAY ==
--- NOTE | ~2024-09-29 | US_ITS ---
EXAMINATION: US PELVIS CLINICAL INFORMATION: R10.2 - Pelvic and perineal pain, M.DCarlos place 08/27/2024 COMPARISON: January 23, 2024 TECHNIQUE: Ultrasound of the pelvis is performed using both transabdominal and transvaginal transducers along with Doppler. Transvaginal imaging is performed due to inadequate visualization transabdominally. FINDINGS: Uterus: The uterus is anteverted and measures 7.0 x 2.6 x 4.0 cm. The double wall endometrial thickness is 2 mm. T-shaped echogenic device within the uterus is situated 1 cm below the cephalad margin of the endometrial stripe. The uterus is smooth in contour and has normal myometrial echogenicity. No visible fibroid. Adnexa: Both ovaries are visualized. There is normal color flow to the adnexa. There is no ovarian torsion. There is no pelvic ascites or fluid collection. Right ovary measures 2.5 x 1.0 x 1.5 cm. Left ovary measures 3.0 x 2.0 x 2.4 cm. 19 mm follicle is identified. US/US pelvic and transvaginal IMPRESSION: IUD is situated 1 cm from the apex of the endometrial stripe. Electronically signed by: Jeff Pringle MD 09/29/2024 03:47 PM EDT
== END 2024-09-29 14:54 | disposition home or self-care (01) ==
LOC: HO.US 14:53
PROVIDERS: Visit Provider Obstetrics & Gynecology
DX: Z32.02 Encounter for pregnancy test, result negative (principal); R10.2 Pelvic and perineal pain
CPT/HCPCS: 76830; 76856; 81002; 81025; 99212

== ENCOUNTER → 2024-09-29 14:55 | Outpatient (BNV) | payer OTHER, SELFPAY | PROVIDERS: Visit Provider Radiology Diagnostic Radiology | DX: R10.2 Pelvic and perineal pain (principal) | CPT/HCPCS: 76830; 76856 ==

== ENCOUNTER 2024-10-01 15:13 | Outpatient (AMB) | payer OTHER, SELFPAY ==
--- NOTE | 2024-10-01 15:20 | MHC.OFFVIS ---
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 The double wall endometrial thickness is 2 mm. T-shaped echogenic device within the uterus is situated 1 cm below the cephalad margin of the endometrial stripe. The uterus is smooth in contour and has normal myometrial echogenicity. No visible fibroid. Adnexa: Both ovaries are visualized. There is normal color flow to the adnexa. There is no ovarian torsion. There is no pelvic ascites or fluid collection. Right ovary measures 2.5 x 1.0 x 1.5 cm. Left ovary measures 3.0 x 2.0 x 2.4 cm. 19 mm follicle is identified. The patient would like to discuss different options of control PFSH Medical History Head congestion Encounter for control pills maintenance Acne cosmetica Surgical History History of eye surgery Family History Father Unknown family medical history Mother Medical history non-contributory Unknown family medical history Maternal Grandfather No problems noted. Maternal Grandmother Unknown family medical history Paternal Grandfather Medical history non-contributory Paternal Grandmother Medical history non-contributory Sister No problems noted. 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 Sexual orientation: Straight/Heterosexual Gender identity: Female Cognitive needs: No Hearing needs: No Vision needs: Yes Female Reproductive History Menstrual Age of Menarche: 10 Review of Systems Const All systems reviewed & are unremarkable except as noted in HPI and below Physical Exam General: Yes no CVA tenderness External Female Exam: normal external appearance and normal appearance of the urethra Speculum Exam - Vagina: normal appearance of the vagina, normal palpation, no lesions and no masses Speculum Exam - Cervix: normal appearance of the cervix, normal palpation, no lesions, no masses, nontender and Other cervical findings present (IUD string in place) Bimanual exam- vagina & uterus: normal bimanual exam, normal palpation, uterine size normal, normal palpation, uterine shape normal, No Cervical tenderness present and non-tender Bimanual Exam- Adnexa, other: normal adnexae Back/Spine/Pelvis Back: no CVA tenderness Office Procedures IUD Insert/Removal Details Details: Counseling/Consent: After discussing with the patient the risks of the procedure including bleeding, infection, scar tissue formation, , possible injury to blood vessels or nerves, chronic arm pain, blood transfusion, and irregular unpredictable bleeding Alternative options were discussed with the patient including but not limited: Do nothing. The patient signed the consent and agreed with the plan; all questions answered. Urine test was done in the office and was negative Preop dx: Malpositioned IUD for removal Op: IUD removal Post op dx: same EBL= 10 cc Procedure: The patient was put in the dorsal lithotomy position a speculum was inserted in the vagina the IUD thread identified. Using a Laura clamp the thread was grasped and the IUD pulled out with no complications. The patient tolerated the procedure well and was advised to use a different method for contraception. Discharge instructions: Instructions were given to the pt to call if temp>100.4, abdominal pain heavy vaginal bleeding, n/v occur. The patient verbalized understanding and all questions answered. This note was generated with a voice recognition program. Some errors may have been overlooked during the review of this note. Sometimes these errors may affect the content or meaning of a given sentence. 18002-HIB Removal Procedure code (CPT) selection complete Assessment & Plan Assessment & Plan (1) Malpositioned IUD: Code(s): T83.32XA - Displacement of intrauterine contraceptive device, initial encounter Category: Medical Plan: Urine test done in the office was negative. Discussed with the patient the finding on pelvic ultrasound, malpositioned IUD, recommended IUD removal, Mirena IUD removed, see procedure note. (2) Family planning: Code(s): Z30.09 - Encounter for other general counseling and advice on contraception Category: Social Hx Plan: Discussed with the patient the different options of control including control pills/Nuvaring, Depo Medroxy Progesterone Acetate, IUD ( levonorgestrel, [place]), sterilization. All the pros, cons, risks and benefits of each were discussed with the patient. The patient decided to go ahead with [facility] so a more detailed discussion re: control pills including mechanism of action, benefits (regular menses, less dysmenorrhea, less risk of ovarian cancer, ...), risks ( DVT, PE, Strokes, OR, increased breast ca, others). Instructions were given to use a back- up method for contraception x 1st 2 weeks, and to schedule a 3 months appointment for blood pressure check Medications: New L norgest/e.estradiol-e.estrad 0.15 mg-30 mcg (84)/10 mcg (7) 1 tab PO DAILY 84 ea 0RF 84 days Coding Level of Care Code Est Pt Level 3 (96741) Procedure Only Diagnoses Malpositioned IUD T83.32XA Family planning Z30.09 CPT Codes Details - CPT: 25783-LHJ Removal ([id number])
--- OUTSIDE RECORDS SUMMARY | 2024-10-01 18:25 | XMS_ITS | Encounter Summary ---
Author Organization [facility] Address [address] [place] [address] Phone Care Team Providers Care Kennel Aide Name Role Phone Marcelle Baca DO Primary Care Provider [phone] Reason for Visit * Reason Comments Med Refill Encounter Details Date Type Department Care Team (Late st Contact Info) Description 02/13/2020 Refill [facility] [place] [address] [place] [address] Marcelle Baca DO [address] [place] [address] Encounter for surveillance of contraceptives, unspecified contraceptive [...] contraceptive documented in this encounter Care Teams Kennel Aide Relationship Specialty Start Date End Date Marcelle Baca DO [address] [facility] [place] [id number] PCP - General 11/16/16 07/15/22 documented as of this encounter
== END 2024-10-01 15:32 | disposition home or self-care (01) ==
LOC: HO.HWS 15:13
PROVIDERS: Visit Provider Obstetrics & Gynecology
DX: T83.32XA Displacement of intrauterine contraceptive device, initial encounter (principal); Z30.432 Encounter for removal of intrauterine contraceptive device; Z30.09 Encounter for other general counseling and advice on contraception
CPT/HCPCS: 58301; 99213

== ENCOUNTER → 2024-10-01 15:13 | Outpatient (BNVA) | payer OTHER, SELFPAY | PROVIDERS: Visit Provider Obstetrics & Gynecology | DX: Z30.09 Encounter for other general counseling and advice on contraception (principal); T83.32XA Displacement of intrauterine contraceptive device, initial encounter | CPT/HCPCS: 58301; 99212 ==

== ENCOUNTER 2024-10-21 15:52 | Outpatient (AMB) | payer OTHER, SELFPAY ==
--- OUTSIDE RECORDS SUMMARY | 2024-10-21 15:54 | XMS_ITS | Clinical Summary ---
Author Organization [facility] Address [address] [place] [id number] Care Team Providers Care Negative Turner Apprentice Name Role Phone Unavailable Primary Care Provider [...] - 2023-2 5 season) 2023 Influenza Vaccine (#1) 2024 HIB Vaccines Aged Out No longer [...] 5 Years) and At-Risk Patients (6 to 49 Years) Aged Out No longer eligible b ased on patient's age to complete this topic RSV Immunization Patients Un sloan 20 months Aged Out No longer eligible b ased on patient's age to complete this topic Varicella Vaccines Aged Out No longer eligible based on patient's age to complete this topic
--- OUTSIDE RECORDS SUMMARY | 2024-10-21 15:54 | XMS_ITS | Encounter Summary ---
Author Organization [facility] Address [address] [place] [address] Phone Care Team Providers Care Gse Mechanic Name Role Phone Marcelle Baca DO Primary Care Provider [phone] Reason for Visit * Reason Comments Med Refill Encounter Details Date Type Department Care Team (Late st Contact Info) Description 02/13/2020 Refill [facility] [place] [address] [place] [address] Marcelle Baca DO [address] [place] [address] Encounter for surveillance of contraceptives, unspecified contraceptive [...] contraceptive documented in this encounter Care Teams Gse Mechanic Relationship Specialty Start Date End Date Marcelle Baca DO [address] [facility] [place] [id number] PCP - General 11/16/16 07/15/22 documented as of this encounter
--- OUTSIDE RECORDS SUMMARY | 2024-10-21 15:54 | XMS_ITS | Clinical Summary ---
Author Organization [facility] [employer] [facility] Address [address] [place] [address] Care Team Providers Care Supervisor Aircraft Maintenance Name Role Phone Unavailable Primary Care Provider [...] Adults 18 yrs or above (or HM Modifier)([facility]) 12/11/2017 Hepatitis C Virus Infection in Adolescents and Adults: Screening (or Modifier) ([facility]) 12/11/2017 SDOH Screening Reminder: Adriana sophia for all adults ([facility]) 12/11/2017 Tobacco Smoking Cessation: i n Adults excluding Women: Behavioral and Pharmacotherapy Interventions ([facility]) 12/11/2017 DTaP/Tdap/Td Vaccines ([facility]) (1 - Tdap) 12/11/2018 Cervical Cancer Screenin 1-65 yrs of age (or Modifier) 12/11/2020 Cervical Cancer Screening: P ap every 3 yrs pts age 21-65 12/11/2020 Cervical Cancer: Pap Screeni ng with Modifier timing ([facility]) 12/11/2020 Cervical Cancer: hrHPV alone or with cotesting Pap for Pts 30-65yrs screening every 5yrs ([facility]) 12/11/2020 COVID-19 Vaccine Screening: Initial Series and Booster Status ([facility]) ( - 2023- season) 2023 Flu Vaccination: Yearly for ages 18mos through 64 years (or Modifier)([facility]) 11/06/2024 Zoster/Shingles Vaccine Seri es Screening: Adults aged 18+ yrs (or HM Modifiers)([facility]) (1 of 2) 12/11/2049 Pneumococcal Vaccination Scr eening: Pts 0-19 & 19-49 yrs of age ([facility]) Aged Out No longer eligible based on patient's age to complete this topic Medical Devices Not on file Insurance [facility]
[2024-10-21 16:09] VITALS: BMI 33.1
--- NOTE | 2024-10-21 16:09 | MHC.OFFVIS ---
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 No fever or chills no nausea or vomiting PFSH Medical History Head congestion Encounter for control pills maintenance Acne cosmetica Surgical History History of eye surgery Family History Father Unknown family medical history Mother Medical history non-contributory Unknown family medical history Maternal Grandfather No problems noted. Maternal Grandmother Unknown family medical history Paternal Grandfather Medical history non-contributory Paternal Grandmother Medical history non-contributory Sister No problems noted. 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 Sexual orientation: Straight/Heterosexual Gender identity: Female Cognitive needs: No Hearing needs: No Vision needs: Yes Female Reproductive History Menstrual Age of Menarche: 10 Physical Exam Vital Signs: BMI result Body Mass Index 33.1 GI Inspection: Yes normal to inspection Palpation (GI): Soft to palpation, nontender and Other GI palpation findings present (No CVA tenderness) Percussion: Yes normal to percussion Results AMB Urinalysis Dipstick UR Leukocytes Large Last Edit by Lea Mejia CMA on 10/21/24 16:12 UR Nitrite Negative Last Edit by Lea Mejia CMA on 10/21/24 16:12 UR Urobilinogen Normal Last Edit by Lea Mejia CMA on 10/21/24 16:12 UR Protein 300 Last Edit by Lea Mejia CMA on 10/21/24 16:12 UR Ph 6.0 Last Edit by Lea Mejia CMA on 10/21/24 16:12 UR Blood Large Last Edit by Lea Mejia CMA on 10/21/24 16:12 UR Specific [place] 1.015 Last Edit by Lea Mejia, HEMA on 10/21/24 16:12 UR Ketone Negative Last Edit by Lea Mejia CMA on 10/21/24 16:12 UR Bilirubin Negative Last Edit by Lea Mejia, HEMA on 10/21/24 16:12 UR Glucose Negative Last Edit by Lea Mejia CMA on 10/21/24 16:12 Assessment & Plan Assessment & Plan (1) Urinary tract infection: Code(s): N39.0 - Urinary tract infection, site not specified Category: Medical Qualifiers: Urinary tract infection type: acute cystitis Hematuria presence: without hematuria Qualified Code(s): N30.00 - Acute cystitis without hematuria Plan: Urine dip was positive, urine culture sent. Macrobid 100 mg p.o. b.i.d. for 5 days sent to the patient's pharmacy Instructions given the patient to call or go to emergency room in case of nausea and vomiting, fever above 100.4, flank pain or persistence of her pain within 48 hours. All questions answered, the patient verbalized understanding Orders: Orders AMB Urinalysis Dipstick Today N39.0 - Urinary tract infection, site not specified Urine Culture Today N39.0 - Urinary tract infection, site not specified Medications: New nitrofurantoin monohyd/m-cryst 100 mg (Macrobid) 100 mg PO BID 10 caps 0RF 5 days Coding Level of Care Code Est Pt Level 3 (48397) Diagnoses Acute cystitis without hematuria N30.00 Urinary tract infection type: acute cystitis Hematuria presence: without hematuria
== END 2024-10-21 16:14 | disposition home or self-care (01) ==
LOC: HO.HWS 15:52
PROVIDERS: Visit Provider Obstetrics & Gynecology
DX: N30.00 Acute cystitis without hematuria (principal); N39.0 Urinary tract infection, site not specified
CPT/HCPCS: 99213

== ENCOUNTER 2024-10-21 15:52 | Outpatient (REF) | payer OTHER, SELFPAY ==
[2024-10-21 17:42] LABS: Alanine Aminotransferase 18 U/L (0-31); Albumin Level 4.7 g/dL (3.5-5.0); Alkaline Phosphatase 86 U/L (39-117); Anion Gap 16 (12-20); Aspartate Amino Transferase 20 U/L (5-31); Blood Urea Nitrogen 6 mg/dL (9-16); Calcium 9.9 mg/dL (8.4-10.2); Carbon Dioxide 21 mmol/L (22-29); Chloride 104 mmol/L (96-108); Estimated Glomerular Filt Rate > 60; Potassium 3.8 mmol/L (3.3-5.1); Sodium 137 mmol/L (135-145); Total Protein 8.4 g/dL (6.5-8.0)
[2024-10-21 17:57] LABS: Thyroid Stimulating Hormone 1.36 uIU/mL (0.32-4.0)
[2024-10-26 08:57] LABS: Testosterone, Free 0.5 pg/mL (0.1-6.4)
== END 2024-10-21 15:53 | disposition home or self-care (01) ==
LOC: HO.LAB 15:52
PROVIDERS: PCP Internal Medicine; Visit Provider Obstetrics & Gynecology
DX: N30.00 Acute cystitis without hematuria (principal); L68.0 Hirsutism; L70.8 Other acne; R35.0 Frequency of micturition; R30.0 Dysuria; R39.15 Urgency of urination; R10.2 Pelvic and perineal pain; Z91.09 Other allergy status, other than to drugs and biological substances
CPT/HCPCS: 36415; 80053; 81002; 83498; 84402; 84403; 84443; 84702; 87086; 87088; 87186; 99212

== ENCOUNTER 2024-10-27 11:00 | Outpatient (AMB) | payer OTHER, SELFPAY ==
--- NOTE | 2024-10-27 11:06 | A.OFFPC_ITS ---
Vital Signs 10/27/24 11:07 Height 5 ft 4 in Weight 180 lb BMI 30.9 BP 122/76 Blood Pressure Location Lt brachial Position Sitting Pulse 82 Pulse Source Pulse Oximeter Temp 98.0 F Temp Source Oral Pulse Oximetry (%) 98 Intake Visit Reasons: 6m follow up Allergies No Known Allergies Allergy (Verified 10/27/24 11:07) Medication List - Last Reconciled 10/27/24 by Susana May MD ciprofloxacin HCl (Cipro) 500 mg PO BID 3 days fluticasone propionate 50 mcg/actuation (Flonase Allergy Relief) 1 spray intranasal DAILY 3 months L norgest/e.estradiol-e.estrad 0.15 mg-30 mcg (84)/10 mcg (7) 1 tab PO DAILY 84 days spironolactone 100 mg PO BID 90 days Tobacco use date assessed: 04/28/24 Dental Screening Dental Screen Date: 04/28/24 HPI 6m follow up HPI Details History - The patient is a 23-year-old female wi th a history of irritable bowel syndrome and allergies, acne, obesity, presenting with recurrent urinary tract infections (UTIs). - Reports increasing frequency of UTIs, experiencing approximately four episodes per year. - Recently recovering from a bladder inf ection, with ongoing antibiotic treatment, through OBGYN - Mother concerned about potential diabe ish connection and suggested A1c testing due to UTIs. - Past random blood glucose test was 99 mg/dL, and a fasting glucose test in March was 85 mg/dL, both within normal limits. -had previous intrauterine device (IUD) usage, though had one placed in September which was removed after one month due to falling out. - Discussed personal hygiene practices a nd use of a watering can for cleaning after urination. - Mother has voiced concerns related to possible kidney involvement, but no specific symptoms or diagnosis for kidney problems reported by the patient. - Has been holding bladder at night, ack nowledged by the patient as a potential contributory factor. Medications: - Fluticasone propionate nasal spray (Fl onase) for unspecified indication. - Spironolactone for dermatological purp oses. Family History: - Paternal side family history of diabet es. Diagnostic Results: - Labs/Tests: - Random blood glucose: 99 mg/dL. - Fasting blood glucose (March): 85 m g/dL. Problem List - Recurrent Urinary Tract Infections - Family history of diabetes - acne - obesity - IBS - allergies Patient Instructions - Schedule a urology appointment at [facility] to assess recurrent UTIs. - Utilize a small watering can or water bottle to assist in maintaining hygiene after urination. - Advised to continue monitoring the ivonne quency and symptoms of UTIs and to follow up as needed. - No medication refills required at this time. - fasting labs are needed before next vi sit in April Review of Systems - General: No fever no chills - Neurological: No headaches no dizziness - Ear nose throat: No sore throat no hearing difficulty no ear pain - Cardiovascular: No syncope, no chest pain, no palpitations - Gastrointestinal: No nausea vomiting or diarrhea Physical Exam General: No acute distress HEENT: No acute findings Neck: Supple Respiratory system: Able to talk in full sentences, no audible wheeze Cardiovascular: S1-S2 regular in rate and rhythm Gastrointestinal: No pain Extremities: No new findings ECONOMICS INSTRUCTOR: Alert awake oriented x3 motor sensory intact Skin: Normal turgor [facility] Medical History Head congestion Encounter for control pills maintenance Acne cosmetica Surgical History History of eye surgery Family History Father Unknown family medical history Mother Medical history non-contributory Unknown family medical history Maternal Grandfather No problems noted. Maternal Grandmother Unknown family medical history Paternal Grandfather Medical history non-contributory Paternal Grandmother Medical history non-contributory Sister No problems noted. 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 Sexual orientation: Straight/Heterosexual Gender identity: Female Cognitive needs: No Hearing needs: No Vision needs: Yes Female Reproductive History Menstrual Age of Menarche: 10 Questionnaire Thrive Questionnaire Date Thrive assessed: 10/27/24 I am a: Patient What is your living situation today?: I have a steady place to live Within the past 12 months, did the food you bought not last and you didn't have the money to get more?: Never true Within the past 12 months, did you worry whether your food would run out before you got money to buy more?: Never true Do you have trouble paying for medicines?: No Do you have trouble getting transportation to medical appointments?: No Do you have trouble paying your heating and electricity bill?: No Do you have trouble taking care of your child, family member or friend?: No Do you have trouble with day-to-day activities such as bathing, preparing meals, shopping, managing finances, etc.?: No Are you currently unemployed and looking for a job?: No Are you interested in more education?: No Please select the resources that you would like help with: None Currently or been in a relationship where the following occur: No concerns reported THRIVE Score: 0 ALEAH-7 AMB Questionnaire ALEAH-7 Date ALEAH - 7 assessed: 04/28/24 Source: Developed by Drs. Hector Luna, Janet Baron, Jose Antonio Magaña and colleagues, with an educational kash from [employer]. Physical exam (Primary Care) Vital Signs: Last Vital Signs Temp 98.0 F 10/27/24 11:07 Pulse 82 10/27/24 11:07 BP 122/76 10/27/24 11:07 Pulse Ox 98 10/27/24 11:07 BMI result Body Mass Index 30.9 Tobacco/Smoking Status: Tobacco use Status Tobacco use date assessed 04/28/24 10/27/24 11:07 Patient Tobacco Use Status Never used Tobacco 10/27/24 11:07 e-Cigarette/Vaping Use Never Used 10/27/24 11:07 Thrive Assessment: Date of Thrive Assessment Date Thrive assessed 10/27/24 10/27/24 11:09 Currently or been in a relationship where the following occur: No concerns reported Coding Level of Care Code Est Pt Level 3 (90136) Diagnoses Recurrent UTI N39.0 Acne cosmetica L70.8 Environmental allergies Z91.09 Class 1 obesity due to excess calories without serious comorbidity with body mass index (BMI) of 32.0 to 32.9 in adult E66.09; Z68.32 Obesity classification: adult class 1 (BMI 30 - 34.9) Serious obesity comorbidity presence: without serious comorbidity Body mass index: BMI 32.0-32.9 Irritable bowel syndrome with diarrhea K58.0 Irritable bowel syndrome type: with diarrhea Assessment & Plan Assessment & Plan (1) Recurrent UTI: Code(s): N39.0 - Urinary tract infection, site not specified Category: Medical (2) Acne cosmetica: Code(s): L70.8 - Other acne Category: Medical (3) Environmental allergies: Code(s): Z91.09 - Other allergy status, other than to drugs and biological substances Category: Medical (4) Obesity due to excess calories: Code(s): E66.09 - Other obesity due to excess calories Category: Medical Qualifiers: Obesity classification: adult class 1 (BMI 30 - 34.9) Serious obesity comorbidity presence: without serious comorbidity Body mass index: BMI 32.0- 32.9 Qualified Code(s): E66.09 - Other obesity due to excess calories; Z68.32 - Body mass index [BMI] 32.0-32.9, adult (5) Irritable bowel syndrome: Code(s): K58.9 - Irritable bowel syndrome, unspecified Category: Medical Qualifiers: Irritable bowel syndrome type: with diarrhea Qualified Code(s): K58.0 - Irritable bowel syndrome with diarrhea Plan History - The patient is a 23-year-old female with a history of irritable bowel syndrome and allergies, acne, obesity, presenting with recurrent urinary tract infections (UTIs). - Reports increasing frequency of UTIs, experiencing approximately four episodes per year. - Recently recovering from a bladder infection, with ongoing antibiotic treatment, through OBGYN - Mother concerned about potential diabetes connection and suggested A1c testing due to UTIs. - Past random blood glucose test was 99 mg/dL, and a fasting glucose test in March was 85 mg/dL, both within normal limits. -had previous intrauterine device (IUD) usage, though had one placed in September which was removed after one month due to falling out. - Discussed personal hygiene practices and use of a watering can for cleaning after urination. - Mother has voiced concerns related to possible kidney involvement, but no specific symptoms or diagnosis for kidney problems reported by the patient. - Has been holding bladder at night, acknowledged by the patient as a potential contributory factor. Medications: - Fluticasone propionate nasal spray (Flonase) for unspecified indication. - Spironolactone for dermatological purposes. Family History: - Paternal side family history of diabetes. Diagnostic Results: - Labs/Tests: - Random blood glucose: 99 mg/dL. - Fasting blood glucose (March): 85 mg/dL. Problem List - Recurrent Urinary Tract Infections - Family history of diabetes - acne - obesity - IBS - allergies Patient Instructions - Schedule a urology appointment at [facility] to assess recurrent UTIs. - Utilize a small watering can or water bottle to assist in maintaining hygiene after urination. - Advised to continue monitoring the frequency and symptoms of UTIs and to follow up as needed. - No medication refills required at this time. - fasting labs are needed before next visit in April Orders: Orders Comprehensive [place]. Panel Fast Today E66.09 - Other obesity due to excess calories, K58.0 - Irritable bowel syndrome with diarrhea, L70.8 - Other acne, N39.0 - Urinary tract infection, site not specified, Z68.32 - Body mass index [BMI] 32.0-32.9, adult, Z91.09 - Other allergy status, other than to drugs and biological substances Lipid Panel Today E66.09 - Other obesity due to excess calories, K58.0 - Irritable bowel syndrome with diarrhea, L70.8 - Other acne, N39.0 - Urinary tract infection, site not specified, Z68.32 - Body mass index [BMI] 32.0-32.9, adult, Z91.09 - Other allergy status, other than to drugs and biological substances TSH reflex Free T4 Today E66.09 - Other obesity due to excess calories, K58.0 - Irritable bowel syndrome with diarrhea, L70.8 - Other acne, N39.0 - Urinary tract infection, site not specified, Z68.32 - Body mass index [BMI] 32.0-32.9, adult, Z91.09 - Other allergy status, other than to drugs and biological substances Vitamin D 25-OH (D2 and D3) Today E66.09 - Other obesity due to excess calories, K58.0 - Irritable bowel syndrome with diarrhea, L70.8 - Other acne, N39.0 - Urinary tract infection, site not specified, Z68.32 - Body mass index [BMI] 32.0-32.9, adult, Z91.09 - Other allergy status, other than to drugs and biological substances Referrals Urology Referral N39.0 - Urinary tract infection, site not specified
[2024-10-27 11:07] VITALS: BP 122/76; PULSE 82; TEMP 36.7; O2SAT 98; BMI 30.9
--- OUTSIDE RECORDS SUMMARY | 2024-10-27 12:18 | XMS_ITS | Clinical Summary ---
Author Organization [facility] ity Address [id number] [place] [id number] Care Team Providers Care Field Research Assistant Name Role Phone Unavailable Primary Care Provider [...] Cervical Cancer Screening: P ap Smear 12/11/2020 HIV Screening 05/03/2023 Hepatitis C Screening 05/03/2023 Social Influencers of Health Screening 05/03/2023 COVID-19 Vaccine ( - 2023-2 5 season) 2023 Depression Screening 04/08/2024 Influenza Vaccine (#1) 2024 HIB Vaccines Aged [...]
--- OUTSIDE RECORDS SUMMARY | 2024-10-27 12:18 | XMS_ITS | Clinical Summary ---
Author Organization [facility] [employer] [facility] lin Address [address] [place] [address] Care Team Providers Care Car Mover Name Role Phone Unavailable Primary Care Provider [...] Adults 18 yrs or above (or HM Modifier)([facility]) 12/11/2017 Hepatitis C Virus Infection in Adolescents and Adults: Screening (or Modifier) ([facility]) 12/11/2017 SDOH Screening Reminder: Adriana sophia for all adults ([facility]) 12/11/2017 Tobacco Smoking Cessation: i n Adults excluding Women: Behavioral and Pharmacotherapy Interventions ([facility]) 12/11/2017 DTaP/Tdap/Td Vaccines ([facility]) (1 - Tdap) 12/11/2018 Cervical Cancer Screenin 1-65 yrs of age (or Modifier) 12/11/2020 Cervical Cancer Screening: P ap every 3 yrs pts age 21-65 12/11/2020 Cervical Cancer: Pap Screeni ng with Modifier timing ([facility]) 12/11/2020 Cervical Cancer: hrHPV alone or with cotesting Pap for Pts 30-65yrs screening every 5yrs ([facility]) 12/11/2020 COVID-19 Vaccine Screening: Initial Series and Booster Status ([facility]) ( - 2023- season) 2023 Flu Vaccination: Yearly for ages 18mos through 64 years (or Modifier)([facility]) 11/06/2024 Zoster/Shingles Vaccine Seri es Screening: Adults aged 18+ yrs (or HM Modifiers)([facility]) (1 of 2) 12/11/2049 Pneumococcal Vaccination Scr eening: Pts 0-19 & 19-49 yrs of age ([facility]) Aged Out No longer eligible based on patient's age to complete this topic Medical Devices Not on file Insurance [facility] PLAN
--- OUTSIDE RECORDS SUMMARY | 2024-10-27 12:18 | XMS_ITS | Encounter Summary ---
Author Organization [facility] Address [address] [place] [address] Phone Care Team Providers Care Pattern Worker Name Role Phone Marcelle Baca DO Primary Care Provider [phone] Reason for Visit * Reason Comments Med Refill Encounter Details Date Type Department Care Team (Late st Contact Info) Description 02/13/2020 Refill [facility] [place] [address] [place] [address] Marcelle Baca DO [address] [place] [address] Encounter for surveillance of contraceptives, unspecified contraceptive [...] contraceptive documented in this encounter Care Teams Pattern Worker Relationship Specialty Start Date End Date Marcelle Baca DO [address] [facility] [place] [id number] PCP - General 11/16/16 07/15/22 documented as of this encounter
== END 2024-10-27 11:40 | disposition home or self-care (01) ==
LOC: HO.HMCC 11:01
PROVIDERS: PCP Internal Medicine; Visit Provider Internal Medicine
DX: N39.0 Urinary tract infection, site not specified (principal); L70.8 Other acne; Z91.09 Other allergy status, other than to drugs and biological substances; E66.09 Other obesity due to excess calories; Z68.32 Body mass index [BMI] 32.0-32.9, adult; K58.0 Irritable bowel syndrome with diarrhea

== ENCOUNTER → 2024-10-27 11:00 | Outpatient (BNVA) | payer OTHER, SELFPAY | PROVIDERS: PCP Internal Medicine; Visit Provider Internal Medicine | DX: K58.0 Irritable bowel syndrome with diarrhea (principal); N39.0 Urinary tract infection, site not specified; L70.8 Other acne; E66.09 Other obesity due to excess calories; Z68.30 Body mass index [BMI] 30.0-30.9, adult; Z91.09 Other allergy status, other than to drugs and biological substances | CPT/HCPCS: 99212 ==

== ENCOUNTER 2024-11-26 11:04 | Outpatient (AMB) | payer OTHER, SELFPAY ==
--- NOTE | 2024-11-26 11:05 | A.OFFVIS_ITS ---
Intake Visit Reasons: control questions Allergies No Known Allergies Allergy (Verified 10/27/24 11:07) HPI Comments Details: The patient is schedule an appointment questioning if it is unhealthy to have 1 menstrual cycle every three-month on the continuous control pills [facility] Medical History Head congestion Encounter for control pills maintenance Acne cosmetica Surgical History History of eye surgery Family History Father Unknown family medical history Mother Medical history non-contributory Unknown family medical history Maternal Grandfather No problems noted. Maternal Grandmother Unknown family medical history Paternal Grandfather Medical history non-contributory Paternal Grandmother Medical history non-contributory Sister No problems noted. 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 Sexual orientation: Straight/Heterosexual Gender identity: Female Cognitive needs: No Hearing needs: No Vision needs: Yes Female Reproductive History Menstrual Age of Menarche: 10 Review of Systems Const All systems reviewed & are unremarkable except as noted in HPI and below Reports as per HPI and Reports no additional complaints GI Reports no additional complaints Reports no additional complaints Telehealth Telehealth Telehealth Platform: Telephone Location of provider rendering services: practice address Location of patient: address on file Patient Identification confirmed using: Name, : Yes Telehealth method: video Patient verbally consented to treatment: Yes Patient verbally consented to billing insurance company: Yes Patient informed of any privacy concerns related to visit: Yes Minutes spent on Phone/Video with Pt.: 4 Assessment & Plan Assessment & Plan (1) Contraceptive management: Code(s): Z30.9 - Encounter for contraceptive management, unspecified Category: Medical Plan: Explained to the patient the physiology behind continuous control pills and no menstrual cycles for three-month versus causes of amenorrhea without continue hormonal contraception. The patient is scheduled for a follow-up blood pressure check, will decide if she would like to go back on cyclic control pills or continuous then. Will move the patient's appointment up to the week of the 12/21. All questions answered, the patient verbalized understanding I spent a total of 20 minutes reviewing the chart, talking to the patient via video and documenting in the medical record. Coding Level of Care Code Tele Est Pt Level 3 (23359) Diagnoses Contraceptive management Z30.9
--- OUTSIDE RECORDS SUMMARY | 2024-11-26 12:41 | XMS_ITS | Encounter Summary ---
Author Organization [facility] Address [address] [place] [address] Phone Care Team Providers Care Software Technical Lead Name Role Phone Marcelle Baca DO Primary Care Provider [phone] Reason for Visit * Reason Comments Med Refill Encounter Details Date Type Department Care Team (Late st Contact Info) Description 02/13/2020 Refill [facility] [place] [address] [place] [address] Marcelle Baca DO [address] [place] [address] Encounter for surveillance of contraceptives, unspecified contraceptive [...] contraceptive documented in this encounter Care Teams Software Technical Lead Relationship Specialty Start Date End Date Marcelle Baca DO [address] [facility] [place] [id number] PCP - General 11/16/16 07/15/22 documented as of this encounter
--- OUTSIDE RECORDS SUMMARY | 2024-11-26 12:41 | XMS_ITS | Clinical Summary ---
Author Organization [facility] lin Address [address] [place] [address] Care Team Providers Care Practice Manager Name Role Phone Unavailable Primary Care Provider [...] Adults 18 yrs or above (or HM Modifier)([facility]) 12/11/2017 Hepatitis C Virus Infection in Adolescents and Adults: Screening (or Modifier) ([facility]) 12/11/2017 SDOH Screening Reminder: Adriana sophia for all adults ([facility]) 12/11/2017 Tobacco Smoking Cessation: i n Adults excluding Women: Behavioral and Pharmacotherapy Interventions ([facility]) 12/11/2017 DTaP/Tdap/Td Vaccines ([facility]) (1 - Tdap) 12/11/2018 Cervical Cancer Screenin 1-65 yrs of age (or Modifier) 12/11/2020 Cervical Cancer Screening: P ap every 3 yrs pts age 21-65 12/11/2020 Cervical Cancer: Pap Screeni ng with Modifier timing ([facility]) 12/11/2020 Cervical Cancer: hrHPV alone or with cotesting Pap for Pts 30-65yrs screening every 5yrs ([facility]) 12/11/2020 COVID-19 Vaccine Screening: Initial Series and Booster Status ([facility]) ( - 2023- season) 2023 Flu Vaccination: Yearly for ages 18mos through 64 years (or Modifier)([facility]) 11/06/2024 Zoster/Shingles Vaccine Seri es Screening: Adults aged 18+ yrs (or HM Modifiers)([facility]) (1 of 2) 12/11/2049 Pneumococcal Vaccination Scr eening: Pts 0-19 & 19-49 yrs of age ([facility]) Aged Out No longer eligible based on patient's age to complete this topic Medical Devices Not on file Insurance [facility] PLAN
--- OUTSIDE RECORDS SUMMARY | 2024-11-26 12:41 | XMS_ITS | Clinical Summary ---
Author Organization [facility] ity Address [address] [place] [id number] Care Team Providers Care Meat Slicer Name Role Phone Unavailable Primary Care Provider [...]
== END 2024-11-26 12:18 | disposition home or self-care (01) ==
LOC: HO.HWS 11:04
PROVIDERS: PCP Internal Medicine; Visit Provider Obstetrics & Gynecology
DX: Z30.9 Encounter for contraceptive management, unspecified (principal)
CPT/HCPCS: 99213

== ENCOUNTER 2024-12-10 15:14 | Outpatient (AMB) | payer OTHER, SELFPAY ==
[2024-12-10 15:17] VITALS: BP 138/76; PULSE 102; TEMP 36.7; O2SAT 97; BMI 33.1
--- NOTE | 2024-12-10 15:17 | AM.OFFWIN_ITS ---
Intake Vital Signs 3 12/10/24 15:17 Height 5 ft 4 in Weight 193 lb BMI 33.1 BP 138/76 Blood Pressure Location Lt brachial Position Standing Pulse 102 H Pulse Source Pulse Oximeter Temp 98.1 F Temp Source Oral Pulse Oximetry (%) 97 Oxygen Delivery Method Room Air Intake Visit Reasons: ep pinched nerve in back Intake Note: pt presents with low back pain and cramping feeling for 5 days Patient Tobacco Use Status: Never used Tobacco Allergies No Known Allergies Allergy (Verified 12/10/24 15:19) Do you need a note to return to daycare/school/sports/work: No HPI HPI Comments 2 History of Present Illness0 Details 23 y/o Female Patient who presents to [facility] walk [facility] clinic with c/o Midline lower Back Pain since Saturday. Denies numbness or tingling. Denies Bowel or bladder symptoms. Denies Injury or trauma to the back. She has used OTC remedies, Ice and Heat with minimal relief. [facility], [facility] Medical History (Updated 12/10/24 @ 15:34 by Mihaela Maria NP) Low back pain Head congestion Encounter for control pills maintenance Acne cosmetica Surgical History History of eye surgery Family History Father Unknown family medical history Mother Medical history non-contributory Unknown family medical history Maternal Grandfather No problems noted. Maternal Grandmother Unknown family medical history Paternal Grandfather Medical history non-contributory Paternal Grandmother Medical history non-contributory Sister No problems noted. 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 Sexual orientation: Straight/Heterosexual Gender identity: Female Cognitive needs: No Hearing needs: No Vision needs: Yes Female Reproductive History Menstrual Age of Menarche: 10 Review of Systems Const All systems reviewed & are unremarkable except as noted in HPI and below Physical Exam Vital Signs: Last Vital Signs Temp 98.1 F 12/10/24 15:17 Pulse 102 H 12/10/24 15:17 BP 138/76 12/10/24 15:17 Pulse Ox 97 12/10/24 15:17 Oxygen Delivery Method Room Air 12/10/24 15:17 BMI result Body Mass Index 33.1 Const General: no acute distress; No comfortable Nutritional Appearance: overweight Orientation/consciousness: patient oriented x3 Back/Spine/Pelvis Back: back tenderness Thoracic/Lumbar Spine: pain with thoraco-lumbar ROM, thoraco-lumbar spasm and lumbar spinal tenderness Back/spine/pelvis image: 2 1. TTP Neuro General: patient oriented x3, gait normal and moves all extremities Psych Speech and movement: Normal speech and movement present Assessment & Plan Assessment & Plan (1) Low back pain: Code(s): M54.50 - Low back pain, unspecified Qualifiers: Chronicity: acute Back pain laterality: midline Sciatica presence: w ithout sciatica Qualified Code(s): M54.50 - Low back pain, unspecified Plan: NSAIDs and Acetaminophen for pain relief. Ice/Hot Rest Back. Ordered Flexeril Medications: New 2 acetaminophen 1,000 mg (2 x 500 mg) PO Q6H 30 caps 0RF pain M54.50 - Low back pain, unspecified ibuprofen 800 mg PO Q8H 30 tabs 0RF M54.50 - Low back pain, unspecified lidocaine 5% leave on most painful area for up to 12 hrs 1 patch topical DAILY 30 ea 0RF M54.50 - Low back pain, unspecified cyclobenzaprine 10 mg PO TID 20 tabs 0RF M54.50 - Low back pain, unspecified Coding Level of Care Code Est Pt Level 4 (19088) Diagnoses Acute midline low back pain without sciatica M54.50 Chronicity: acute Back pain laterality: midline Sciatica presence: without sciatica Time Spent (min) 20
== END 2024-12-10 15:46 | disposition home or self-care (01) ==
PROVIDERS: PCP Internal Medicine; Visit Provider Nurse Practitioner Family
DX: M54.50 Low back pain, unspecified (principal)

== ENCOUNTER → 2024-12-10 15:14 | Outpatient (BNVA) | payer OTHER, SELFPAY | PROVIDERS: PCP Internal Medicine; Visit Provider Nurse Practitioner Family | DX: M54.50 Low back pain, unspecified (principal) | CPT/HCPCS: 99212 ==

== ENCOUNTER 2024-12-22 15:16 | Outpatient (AMB) | payer OTHER, SELFPAY ==
--- NOTE | 2024-12-22 15:19 | AM.OFFWIN_ITS ---
Intake Vital Signs 12/22/24 15:20 Height 5 ft 4 in Weight 195 lb BMI 33.5 BP 118/76 Blood Pressure Location Rt brachial Position Sitting Pulse 92 Pulse Source Pulse Oximeter Temp 98.1 F Temp Source Oral Pulse Oximetry (%) 99 Oxygen Delivery Method Room Air Intake Visit Reasons: ep sinus infection Intake Note: pt presents with sinus congestion, sinus pain, diminishing cough, hot/cold sweats and bilateral ear pain Patient Tobacco Use Status: Never used Tobacco Allergies No Known Allergies Allergy (Verified 12/22/24 15:23) Do you need a note to return to daycare/school/sports/work: No HPI HPI Comments History of Present Illness Details History - The patient is a 24-year-old female pr esenting with symptoms of an upper respiratory tract infection. - Symptoms began Saturday night into Sat, including congestion, a severe cough, and a raspy voice. - The patient experiences alternating se nsations of feeling hot and cold without a fever. - There is no productive cough, and nasa l discharge is mostly clear with occasional greenish tint. - The patient has been using DayQuil and NyQuil with limited relief, experiencing coughing fits once the medication wears off. - The patient reports an initial sore th roat and loss of taste, but no current sore throat. - The patient denies any history of asth ma and reports no recent illnesses prior to this episode. 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 - The patient was exposed to croup and s he was nervous that she had it. - The patient has not experienced simila r symptoms in the past and has not had COVID-19. - The patient also reports back pain exa cerbated by coughing, attributed to a recent back strain. - She denies fever, chills, CP, SOB, abd pain, or n/v/d. Physical Exam General: Cooperative, healthy appearing, comfortable and no acute distress Orientation/consciousness: Patient oriented x3 Limitations: No limitations Head: Normal to inspection Ears: Hearing grossly normal bilaterally, external ears normal and TM's normal bilaterally Nose: Normal external nose present, normal nares present, and no nasal discharge present. Face and sinus: Sinuses nontender to palpation. Mouth: Normal oral and palatal mucosa present and moist mucous membranes noted. Throat: Tonsils normal. Uvula is midline. Posterior oropharynx with erythema and no exudates. Eyes: Appearance normal, both eyes and all related structures Neck: Normal visual inspection, full ROM. No lymphadenopathy noted. Respiratory: Clear to auscultation bilaterally. Normal respiratory effort, able to speak in complete sentences. No respiratory distress, not tachypneic, no tripod positioning and no use of accessory muscles. Cardiovascular: Regular rate and rhythm. Normal S1 and S2 Skin: No rashes or lesions noted Patient was informed and verbally consented to the use of an ambient scribe for clinic note documentation during this visit COUNTS INCLUDE 234 BEDS AT THE [facility] Medical History (Updated 12/10/24 @ 15:34 by Mihaela Maria NP) Low back pain Head congestion Encounter for control pills maintenance Acne cosmetica Surgical History History of eye surgery Family History Father Unknown family medical history Mother Medical history non-contributory Unknown family medical history Maternal Grandfather No problems noted. Maternal Grandmother Unknown family medical history Paternal Grandfather Medical history non-contributory Paternal Grandmother Medical history non-contributory Sister No problems noted. 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 Sexual orientation: Straight/Heterosexual Gender identity: Female Cognitive needs: No Hearing needs: No Vision needs: Yes Female Reproductive History Menstrual Age of Menarche: 10 Review of Systems Const All systems reviewed & are unremarkable except as noted in HPI and below Physical Exam Vital Signs: Last Vital Signs Temp 98.1 F 12/22/24 15:20 Pulse 92 12/22/24 15:20 BP 118/76 12/22/24 15:20 Pulse Ox 99 12/22/24 15:20 Oxygen Delivery Method Room Air 12/22/24 15:20 BMI result Body Mass Index 33.5 Assessment & Plan Assessment & Plan (1) URI with cough and congestion: Code(s): J06.9 - Acute upper respiratory infection, unspecified Plan Most likely URI vs covid vs flu vs RSV vs viral illness plan - Perform a respiratory panel to rule out viral infections such as influenza and COVID-19. - Symptomatic treatment with [id number] medications like DayQuil and NyQuil. - Follow-up with results of the respiratory panel to determine further management. - Treat as allergies with appropriate medications for symptomatic relief. - Monitor symptoms and adjust treatment based on response and respiratory panel results. Orders: Orders Resp Pathogen Panel - [facility] Today J06.9 - Acute upper respiratory infection, unspecified Medications: New cetirizine-pseudoephedrine 5-120 mg ER 1 tab PO BID 14 tabs 0RF 7 days fluticasone propionate 50 mcg/actuation administer into each nostril 1 spray intranasal Q12H 16 grams 0RF benzonatate 100 mg PO bid-tid PRN 21 caps 0RF Cough 7 days Coding Level of Care Code Est Pt Level 3 (50897) Diagnoses URI with cough and congestion J06.9
[2024-12-22 15:20] VITALS: BP 118/76; PULSE 92; TEMP 36.7; O2SAT 99; BMI 33.5
== END 2024-12-22 15:36 | disposition home or self-care (01) ==
PROVIDERS: PCP Internal Medicine; Visit Provider Physician Assistant Medical
DX: J06.9 Acute upper respiratory infection, unspecified (principal)

== ENCOUNTER 2024-12-22 15:16 | Outpatient (REF) | payer OTHER, SELFPAY ==
[2024-12-23 12:07] LABS: Chlamydia pneumoniae PCR Not Detected (Not Detect.); Coronavirus 229E PCR Not Detected (Not Detect.); Coronavirus HKU1 PCR Not Detected (Not Detect.); Coronavirus NL63 PCR Not Detected (Not Detect.); Coronavirus OC43 PCR Not Detected (Not Detect.); RSV PCR Not Detected (Not Detect.); Rhino/Enterovirus PCR Detected (Not Detect.)
[2024-12-23 12:44] LABS: Influenza A H1 PCR Not Detected (Not Detect.); Influenza A H1-2009 PCR Not Detected (Not Detect.); Influenza A H3 PCR Not Detected (Not Detect.); SARS-CoV-2 PCR Detected (Not Detect.)
== END 2024-12-22 15:17 | disposition home or self-care (01) ==
LOC: HO.LNP 15:16
PROVIDERS: PCP Internal Medicine; Visit Provider Physician Assistant Medical
DX: J06.9 Acute upper respiratory infection, unspecified (principal); J02.9 Acute pharyngitis, unspecified
CPT/HCPCS: 87633; 99212

== ENCOUNTER 2025-01-06 15:24 | Outpatient (AMB) | payer OTHER, SELFPAY ==
--- NOTE | 2025-01-06 15:28 | ...WebTmpl.AM.BPCHK ---
Intake Intake Visit Reasons: Blood pressure check Tongue And Groove Machine Feeder Required: No Allergies No Known Allergies Allergy (Verified 01/06/25 15:29) Coding
--- NOTE | 2025-01-06 15:44 | MHC.OFFVIS ---
Vital Signs 01/06/25 15:45 Height 5 ft 4 in Weight 195 lb BMI 33.5 BP 120/64 Intake Visit Reasons: Blood pressure check Allergies No Known Allergies Allergy (Verified 01/06/25 15:29) HPI Comments Details: Presenting for follow-up on control pills with no complaints [facility] Medical History Low back pain Head congestion Encounter for control pills maintenance Acne cosmetica Surgical History History of eye surgery Family History Father Unknown family medical history Mother Medical history non-contributory Unknown family medical history Maternal Grandfather No problems noted. Maternal Grandmother Unknown family medical history Paternal Grandfather Medical history non-contributory Paternal Grandmother Medical history non-contributory Sister No problems noted. 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 Sexual orientation: Straight/Heterosexual Gender identity: Female Cognitive needs: No Hearing needs: No Vision needs: Yes Female Reproductive History Menstrual Age of Menarche: 10 Review of Systems Const All systems reviewed & are unremarkable except as noted in HPI and below Reports as per HPI and Reports no additional complaints GI Reports no additional complaints Reports no additional complaints Physical Exam Vital Signs: Last Vital Signs BP 120/64 01/06/25 15:45 BMI result Body Mass Index 33.5 Assessment & Plan Assessment & Plan (1) Contraceptive management: Code(s): Z30.9 - Encounter for contraceptive management, unspecified Category: Medical Plan: Recommended the patient to keep taking control pills as prescribed and to call with any concerns. All questions answered, the patient verbalized understanding Coding Level of Care Code Est Pt Level 3 (06346) Diagnoses Contraceptive management Z30.9
[2025-01-06 15:45] VITALS: BP 120/64; BMI 33.5
== END 2025-01-06 15:57 | disposition home or self-care (01) ==
LOC: HO.HWS 15:24
PROVIDERS: PCP Internal Medicine; Visit Provider Obstetrics & Gynecology
DX: Z30.9 Encounter for contraceptive management, unspecified (principal)
CPT/HCPCS: 99213

== ENCOUNTER → 2025-01-06 15:24 | Outpatient (BNVA) | payer OTHER, SELFPAY | PROVIDERS: PCP Internal Medicine; Visit Provider Obstetrics & Gynecology | DX: Z30.9 Encounter for contraceptive management, unspecified (principal) | CPT/HCPCS: 99212 ==

== ENCOUNTER 2025-02-09 15:02 | Outpatient (REF) | payer OTHER, SELFPAY | END 2025-02-09 15:03 | disposition home or self-care (01) | LOC: HO.LAB 15:02 | PROVIDERS: PCP Internal Medicine; Visit Provider Urology | DX: N39.0 Urinary tract infection, site not specified (principal) | CPT/HCPCS: 51798; 87086; 99202 ==

== ENCOUNTER 2025-02-09 15:02 | Outpatient (AMB) | payer OTHER, SELFPAY ==
--- NOTE | 2025-02-09 15:03 | A.OFFVIS_ITS ---
Intake Visit Reasons: Recurrent uti Intake Note: New Patient is present for Recurrent UTI no current sx Urology Rx:none PVR:72 mls Blood Thinners:none Imaging completed: none Dock Associate Required: No Accompanied by: Self / Same As Patient Allergies No Known Allergies Allergy (Verified 02/09/25 15:03) HPI Comments Details: Lucia is a pleasant female. She is a patient of Dr. May. 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 Given culture containers Recurrent urinary tract infection Longstanding Appears to be related to menstrual cycle Currently taking extended oral contraceptive - three-month on 7 day off cycle 4 times per year Not related to intercourse Discussed bridging strategies and bladder emptying Does have incomplete bladder emptying Denies bowel difficulties Has trouble with pelvic floor relaxation 1st step trial vitamin-C with D mannose Always may need intermittent antibiotics Microbiology - Proteus resistant to trimethoprim and nitrofurantoin PFSH Medical History Low back pain Head congestion Encounter for control pills maintenance Acne cosmetica Surgical History History of eye surgery Family History Father Unknown family medical history Mother Medical history non-contributory Unknown family medical history Maternal Grandfather No problems noted. Maternal Grandmother Unknown family medical history Paternal Grandfather Medical history non-contributory Paternal Grandmother Medical history non-contributory Sister No problems noted. 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 Sexual orientation: Straight/Heterosexual Gender identity: Female Cognitive needs: No Hearing needs: No Vision needs: Yes Female Reproductive History Menstrual Age of Menarche: 10 Review of Systems Const Denies chills and Denies fever(s) Card Reports no additional complaints and Denies syncope Resp Denies cough GI Denies abdominal pain and Denies heartburn Reports as per HPI and Denies change in libido Neuro Denies syncope Psych Denies change in libido Endo Denies change in libido Physical Exam Const General: cooperative, healthy appearing, comfortable and no acute distress Orientation/consciousness: patient oriented x3 HEENT Face and sinus: Yes normal facial exam Mouth: moist mucous membranes Neck Neck: Yes normal visual inspection, Yes full ROM and Yes trachea midline Chest Chest palpation & inspection: normal inspection of the chest Resp Effort & Inspection: normal respiratory effort, able to speak in complete sentences and no respiratory distress GI Inspection: Yes normal to inspection Back/Spine/Pelvis Cervical Spine: normal cervical lordosis Thoracic/Lumbar Spine: thoracic and lumbar spine normal to inspection Skin General skin exam: no rashes or lesions noted Neuro General: patient oriented x3, gait normal, tone normal and moves all extremities Extrem General: Yes normal to inspection and Yes capillary refill normal Office Procedures Post Void Residual Post Residual Void Post Void Residual (PVR): 72 [id number]-[id number] Void Residual by ultrasound Results AMB Urinalysis, Automated UA Leukoctes 15 Arnoldo/uL Last Edit by Mary Clark [facility] on 02/09/25 15:12 UA Nitrite Negative Last Edit by Mary Clark [facility] on 02/09/25 15:12 UA Urobilinogen 0.2 mg/dL Last Edit by Mary Clark [facility] on 02/09/25 15:12 UA Protein 0 mg/dL Last Edit by Mary Clark [facility] on 02/09/25 15:12 UA pH 6.0 Last Edit by Mary Clark [facility] on 02/09/25 15:12 UA Blood 0 Adin/uL Last Edit by Mary Clark [facility] on 02/09/25 15:12 UA Specific Winn 1.020 Last Edit by Mary Clark [facility] on 02/09/25 15:1 2 UA Ketone Negative Last Edit by Mary Clark [facility] on 02/09/25 15:12 UA Bilirubin 0 mg/dL Last Edit by Mary Clark [facility] on 02/09/25 15:12 UA Glucose 0 mg/dL Last Edit by Mary Clark [facility] on 02/09/25 15:12 Results Reviewed Results Reviewed: Laboratory Last Values Urine pH (Auto) 6.0 02/09/25 15:11 Specific Winn (Auto) 1.020 02/09/25 15:11 Urine Protein (Auto) 0 mg/dL 11/04/25 15:11 Glucose (UA)(Auto) 0 mg/dL 02/09/25 15:11 Urine Ketones (Auto) Negative 02/09/25 15:11 Urine Blood (Auto) 0 Adin/uL 02/09/25 15:11 Urine Nitrite (Auto) Negative 02/09/25 15:11 Urine Bilirubin (Auto) 0 mg/dL 02/09/25 15:11 Urine Urobilinogen (Auto) 0.2 mg/dL 02/09/25 15:11 Leukocyte Esterase (Auto) 15 Arnoldo/uL 02/09/25 15:11 Assessment & Plan Assessment & Plan (1) Recurrent UTI: Code(s): N39.0 - Urinary tract infection, site not specified Category: Medical Plan Upper and lower tract imaging given Proteus Six-month follow-up Orders: Orders US retroperitoneal comp Today N39.0 - Urinary tract infection, site not specified Patient Instructions: This note is constructed using voice recognition software. While every effort has been made to ensure accuracy lighting director errors may have been included. Imaging studies, laboratory and physical exam results were discussed and reviewed in detail. No major barriers to patient understanding were identified. An opportunity to ask questions regarding the treatment plan was provided. All questions were answered. The patient expressed understanding and agreement with the above treatment plan. The patient is aware they should contact our office by phone for worsening of their current condition or the appearance of new urologic symptoms. Compliance is encouraged with any medications and followup testing that is ordered. It is a privilege to participate in the urologic care of your patient. If you have any questions or concerns regarding treatment for the above conditions, or other urologic issues, please do not hesitate to contact me. The office telephone contact is [phone]. Sincerely, Dr Agusto Houston MD, [facility] - Urology Compassionate Specialist Care for the Genitourinary System Coding Level of Care Code New Pt Level 3 (54399) Complex EM visit Add On G2211 Diagnoses Recurrent UTI N39.0 CPT Codes Post Residual Void - PVR CPT Code: 53730-Xohj Void Residual by ultrasound ([id number])
== END 2025-02-09 15:36 | disposition home or self-care (01) ==
LOC: HO.HUSH 15:03
PROVIDERS: PCP Internal Medicine; Visit Provider Urology
DX: N39.0 Urinary tract infection, site not specified (principal)
CPT/HCPCS: 99203

== ENCOUNTER 2025-03-25 08:13 | Outpatient (AMB) | payer OTHER, SELFPAY ==
--- NOTE | 2025-03-25 10:19 | A.OFFPC_ITS ---
Intake Visit Reasons: back pain Allergies No Known Allergies Allergy (Verified 02/09/25 15:03) Medication List - Last Reconciled 03/25/25 by Susana May MD acetaminophen 1,000 mg (2 x 500 mg) PO Q6H benzonatate 100 mg PO bid-tid PRN 7 days cetirizine-pseudoephedrine 5-120 mg ER 1 tab PO BID 7 days cyclobenzaprine 10 mg PO TID fluticasone propionate 50 mcg/actuation (Flonase Allergy Relief) 1 spray intranasal DAILY 3 months fluticasone propionate 50 mcg/actuation 1 spray intranasal Q12H ibuprofen 800 mg PO Q8H L norgest/e.estradiol-e.estrad 0.15 mg-30 mcg (84)/10 mcg (7) 1 tab PO DAILY 84 days lidocaine 5% 1 patch topical DAILY spironolactone 50 mg (1/2 x 100 mg) PO BID Tobacco use date assessed: 04/28/24 Dental Screening Dental Screen Date: 04/28/24 HPI HPI Comments History of Present Illness Details History of Present Illness The patient is a 24 year old female presenting with lower back pain. Lower back pain: - The patient reports severe lower back pain since December, which is intermittent. - On bad days, she experiences spasms up on standing that last for about five minutes and shooting pain with each step, making it difficult to walk. - The pain sometimes prevents her from t ouching her knees. - She notes a sensation similar to a pin ched sciatic nerve, but denies the pain radiates down her legs. - Past treatments with muscle relaxers a nd lidocaine patches provided temporary relief. - She uses a heating pad every night for the pain. - The patient denies any history of inju aida or accidents involving her back. Medical History: - Lower back pain since December. - Denies any history of accidents or inj uries to her back. Medications: - The patient has previously used muscle relaxers and lidocaine patches for her back pain, which provided some relief. 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 Diagnostic Results: - No prior imaging of the lumbar spine i s on file. [facility] Medical History Low back pain Head congestion Encounter for control pills maintenance Acne cosmetica Surgical History History of eye surgery Family History Father Unknown family medical history Mother Medical history non-contributory Unknown family medical history Maternal Grandfather No problems noted. Maternal Grandmother Unknown family medical history Paternal Grandfather Medical history non-contributory Paternal Grandmother Medical history non-contributory Sister No problems noted. 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 Hector Luna, Janet Baron, Jose Antonio Magaña and colleagues, with an educational kash from [employer]. Review of Systems Narrative Review of Systems - Musculoskeletal: Reports intermittent, severe lower back pain since December, sometimes associated with muscle spasms. - Neurological: Denies pain radiating to the legs but describes a pinching sensation in her back similar to sciatica. - General: No fever no chills - Neurological: No headaches no dizziness - Ear nose throat: No sore throat no hearing difficulty no ear pain - Cardiovascular: No syncope, no chest pain, no palpitations - Gastrointestinal: No nausea vomiting or diarrhea - Endocrine: No polyuria polydipsia no heat intolerance - Genitourinary: No dysuria , no blood in urine Physical exam (Primary Care) Tobacco/Smoking Status: Tobacco use Status Tobacco use date assessed 04/28/24 03/25/25 10:19 Patient Tobacco Use Status Never used Tobacco 03/25/25 10:19 e-Cigarette/Vaping Use Never Used 03/25/25 10:19 Thrive Assessment: Date of Thrive Assessment Date Thrive assessed 04/28/24 03/25/25 10:19 Narrative Telehealth Telehealth Telehealth Platform: [facility] Location of provider rendering services: practice address Location of patient: other Patient Identification confirmed using: Name, : Yes Telehealth method: video Patient verbally consented to treatment: Yes Patient verbally consented to billing insurance company: Yes Patient informed of any privacy concerns related to visit: Yes Minutes spent on Phone/Video with Pt.: 13 Coding Level of Care Code Tele Est Pt Level 3 (28894) Diagnoses Acute midline low back pain without sciatica M54.50 Back pain laterality: midline Chronicity: acute Sciatica presence: without sciatica Lumbar paraspinal muscle spasm M62.830 Assessment & Plan Assessment & Plan (1) Low back pain: Code(s): M54.50 - Low back pain, unspecified Category: Medical Qualifiers: Back pain laterality: midline Chronicity: acute Sciatica presence: without sciatica Qualified Code(s): M54.50 - Low back pain, unspecified (2) Lumbar paraspinal muscle spasm: Code(s): M62.830 - Muscle spasm of back Category: Medical Plan Problem List - Lower back pain Plan - A baseline imaging of the lumbar spine will be ordered. - A prescription for a muscle relaxer will be sent to the pharmacy - A referral will be placed for physical therapy to strengthen back muscles and prevent spasms. - The patient was advised to make an appointment with the physical therapy office located next to the clinic. - The patient was advised to follow up if the back pain does not improve with physical therapy. Orders: Orders XR lumbar spine 2-3V Today M54.50 - Low back pain, unspecified PT Evaluation and Treatment Today M54.50 - Low back pain, unspecified, M62.830 - Muscle spasm of back Medications: Changed From cyclobenzaprine 10 mg PO TID 20 tabs 0RF M54.50 - Low back pain, unspecified To cyclobenzaprine 10 mg PO BEDTIME 30 tabs 0RF M54.50 - Low back pain, unspecified
== END 2025-03-25 12:00 | disposition home or self-care (01) ==
LOC: HO.HMCC 08:13
PROVIDERS: PCP Internal Medicine; Visit Provider Internal Medicine
DX: M54.50 Low back pain, unspecified (principal); M62.830 Muscle spasm of back